=== PATIENT | female | born 1945 | race Caucasian/White ===

== ENCOUNTER 2016-12-31 12:57 | Inpatient (IN) | payer MEDICARE, OTHER ==
[~2016-12-31] VITALS: Ht 165.1 cm; Wt 67.2 kg
[2016-12-31 13:12] VITALS: BP 113/73; PULSE 63; RESP 18; TEMP 98.8; O2SAT 100
[2016-12-31] MEDS ORDERED: DULC10SU3 RECTAL (13:42)
[2016-12-31] MEDS ORDERED: MAPA325T PO (13:42)
[2016-12-31] MEDS ORDERED: ATOR10TA15 PO (13:42)
[2016-12-31] MEDS ORDERED: LORazepam 2 MG/ML VIAL IM ONE (13:45)
[2016-12-31] MEDS ORDERED: DONE10TA7 PO (13:51)
[2016-12-31] MEDS ORDERED: NAME10TA PO (13:51)
[2016-12-31] MEDS ORDERED: QUET50XR PO (13:51)
[2016-12-31] MEDS ORDERED: ENEMENE3 PR (13:51)
[2016-12-31] MEDS ORDERED: MIRTA15 PO (13:51)
[2016-12-31] MEDS ORDERED: THERTAB17 PO (13:51)
[2016-12-31] MEDS ORDERED: TRID0.1C TOPICAL (13:51)
[2016-12-31] MEDS ORDERED: MILKSUS PO (13:51)
[2016-12-31] MEDS ORDERED: LISI-589 PO (13:53)
[2016-12-31 14:19] LABS: AUTOMATED NEUTROPHIL # 8.6 TH/MM3 (1.8-7.7); BASOPHIL % 0.3 % (0.0-2.0); EOSINOPHIL # 0.4 TH/MM3 (0-0.4); EOSINOPHIL % 3.3 % (0.0-4.0); HEMATOCRIT 43.2 % (35.0-46.0); HEMO FLAGS DIFF FINAL; LYMPH % 15.3 % (9.0-44.0); LYMPHOCYTE # 1.8 TH/MM3 (1.0-4.8); MEAN CELL VOLUME 90.6 FL (80.0-100.0); MEAN CORPUSCULAR HEMOGLOBIN 29.4 PG (27.0-34.0); MEAN CORPUSCULAR HGB CONC 32.4 % (32.0-36.0); MONO % 5.8 % (0.0-8.0); NEUT % 75.3 % (16.0-70.0); PLATELET COUNT 249 TH/MM3 (150-450); RED BLOOD COUNT 4.76 MIL/MM3 (4.00-5.30); RED CELL DISTRIBUTION WIDTH 13.4 % (11.6-17.2); WHITE BLOOD COUNT 11.4 TH/MM3 (4.0-11.0)
[2016-12-31 14:41] LABS: ANION GAP 6 MEQ/L (5-15); AST (GOT) 28 U/L (15-37); BICARBONATE 30.7 MEQ/L (21.0-32.0); BLOOD UREA NITROGEN 18 MG/DL (7-18); CHLORIDE 107 MEQ/L (98-107); GLOMERULAR FILTRATION RATE 72 ML/MIN (>89); POTASSIUM 4.3 MEQ/L (3.5-5.1); SODIUM (NA) 144 MEQ/L (136-145)
[2016-12-31 14:45] LABS: ALKALINE PHOSPHATASE 122 U/L (45-117); ALT (GPT) 34 U/L (10-53); TOTAL BILIRUBIN ADULT 0.4 MG/DL (0.2-1.0)
--- NOTE | 2016-12-31 14:56 | RADRPT ---
EXAM DATE/TIME: 12/31/2016 13:56 [facility] COMPARISON: No previous studies available for comparison. INDICATIONS : Trauma; fall. RADIATION DOSE: 31.60 CTDIvol (mGy) ; Patient motion MEDICAL HISTORY : Non-responsive. SURGICAL HISTORY : Non-responsive. ENCOUNTER: Initial ACUITY: 1 day PAIN SCALE: 5/10 LOCATION: cranial TECHNIQUE: Multiple contiguous axial images were obtained of the head. Using automated exposure control and adj ustment of the mA and/or kV according to patient size, radiation dose was kept as low as reasonably a chievable to obtain optimal diagnostic quality images. DICOM format image data is available electro nically for review and comparison. FINDINGS: There is a small approximate 4-5 mm acute subdural hematoma and right frontal. There is preseptal swe lling on the right with fracture of the right maxillary sinus and probably infraorbital rim. Slight d egree of brain atrophy is seen. Slight periventricular white matter changes are seen nonspecific most ly consistent with chronic small vessel ischemic changes. There is slight fluid within the right maxi llary sinus. CONCLUSION: 1. Small right subdural hematoma without mass effect. 2. Fracture of right maxillary sinus and possible infraorbital rim and preseptal swelling on the [facility] t. K. Neno Li MD on December 31, 2016 at 14:52 Board Certified Radiologist. This report was verified electronically.
[2016-12-31] MEDS ORDERED: LIDOCAINE HCL 1% 50 ML VIAL INFIL ONE (15:00)
--- NOTE | 2016-12-31 15:00 | RADRPT ---
EXAM DATE/TIME: 12/31/2016 13:56 [facility] COMPARISON: No previous studies available for comparison. INDICATIONS : Trauma; fall. RADIATION DOSE: 38.23 CTDIvol (mGy) ; Patient motion MEDICAL HISTORY : Non-responsive. SURGICAL HISTORY : Non-responsive. ENCOUNTER: Initial ACUITY: 1 day PAIN SCALE: 5/10 LOCATION: Bilateral neck TECHNIQUE: Volumetric scanning of the cervical spine was performed. Multiplanar reconstructions in the sagittal, coronal and oblique axial planes were performed. Using automated exposure control and adjustment o f the mA and/or kV according to patient size, radiation dose was kept as low as reasonably achievable to obtain optimal diagnostic quality images. DICOM format image data is available electronically f or review and comparison. FINDINGS: No significant subluxation or soft tissue swelling is seen. No definite fracture is seen for techniqu e. Slight degenarative changes are seen within the disc space and facets mainly at C6-7. C2-C3: No appreciable compromised to the thecal sac, exiting nerve roots are seen. The neural edna rush are patent bilaterally. No appreciable thecal sac stenosis is seen. C3-C4: No appreciable compromised to the thecal sac, exiting nerve roots are seen. The neural edna rush are patent bilaterally. No appreciable thecal sac stenosis is seen. C4-C5: No appreciable compromised to the thecal sac, exiting nerve roots are seen. The neural edna rush are patent bilaterally. No appreciable thecal sac stenosis is seen. C5-C6: No appreciable compromised to the thecal sac, exiting nerve roots are seen. The neural edna rush are patent bilaterally. No appreciable thecal sac stenosis is seen. C6-C7: No appreciable compromised to the thecal sac, exiting nerve roots are seen. The neural edna rush are patent bilaterally. No appreciable thecal sac stenosis is seen. C7-T1: No appreciable compromised to the thecal sac, exiting nerve roots are seen. The neural edna rush are patent bilaterally. No appreciable thecal sac stenosis is seen CONCLUSION: Slight degenerative spondylosis without any significant compromise to the thecal sac or the exiting nerve roots. Roman Li MD on December 31, 2016 at 14:54 Board Certified Radiologist. This report was verified electronically.
--- NOTE | 2016-12-31 16:13 | PD ---
HPI Chief Complaint: Fall Time Seen by Provider: 13:19 Travel History International Travel<30 days: No Contact w/Intl Traveler<30days: No Traveled to known affect area: No History of Present Illness HPI Patient is a 71-year-old female brought in from the custodial by EMS after a fall today. She is demented and cannot provide any history. EMS states that staff had just walked out of her room when they heard her fall. PFSH Past Medical History ?: Not Social History Alcohol Use: No (UNABLE TO ASSESS ) Tobacco Use: No (UNABLE TO ASSESS ) Substance Use: No (UNABLE TO ASSESS ) Allergies-Medications (Allergen,Severity, Reaction): Coded Allergies: No Known Allergies (Unverified , 12/31/16) Reported Meds & Prescriptions Reported Meds & Active Scripts Active Reported Zestril (Lisinopril) 5 Mg Tab 5 Mg PO DAILY Triderm Topical (Triamcinolone Topical) 0.1 % Cream 1 Applic TOPICAL BID Thera-M (Multiple Vitamins W/ Minerals) 1 Tab 1 Tab PO DAILY Seroquel XR (Quetiapine Fumarate) 50 Mg Tab 75 Mg PO HS Namenda (Memantine) 10 Mg Tab 10 Mg PO BID Mirtazapine 15 Mg Tab 15 Mg PO HS Milk of Magnesia Liq (Magnesium Hydroxide) 400 Mg/5 Ml Susp 30 Ml PO DAILY PRN Enema 7-19 gm/118Ml (Sodium Phosphates) 1 Mala Mala 118 Ml [place] DAILY PRN Donepezil 10 Mg Tab 10 Mg PO HS Dulcolax Supp (Bisacodyl) 10 Mg Supp 10 Mg RECTAL DAILY PRN Atorvastatin (Atorvastatin Calcium) 10 Mg Tab 10 Mg PO HS Mapap (Acetaminophen) 325 Mg Tab 650 Mg PO Q4HR PRN Review of Systems ROS Limitations: Other: (dementia) Physical Exam Narrative GENERAL: Awake and alert, not oriented to person place or time SKIN: Focused skin assessment warm/dry. Swelling and ecchymosis over the right eye. 2 cm angular laceration to the right side of the chin. HEAD: Normocephalic. EYES: Pupils equal and round and reactive. No scleral icterus. Extraocular movements intact. ENT:Mucous membranes pink and moist. NECK: Trachea midline. No JVD. CARDIOVASCULAR: Regular rate and rhythm. No murmur appreciated. RESPIRATORY: No accessory muscle use. Clear to auscultation. Breath sounds equal bilaterally. GASTROINTESTINAL: Abdomen soft, non-tender, nondistended. Hepatic and splenic margins not palpable. MUSCULOSKELETAL: No obvious deformities. No clubbing. No cyanosis. No edema. NEUROLOGICAL: Awake and alert, not oriented. No obvious cranial nerve deficits. Motor grossly within normal limits. Data Data Last Documented VS Vital Signs Date Time Temp Pulse Resp B/P Pulse Ox O2 Delivery O2 Flow Rate FiO2 12/31/16 13:12 98.8 63 18 113/73 100 Orders Complete Blood Count With Diff (12/31/16 13:39) Comprehensive Metabolic Panel (12/31/16 13:39) Iv Access Insert/Monitor (12/31/16 13:39) Ct Brain W/O Iv Contrast(Rout) (12/31/16 ) Ct Cerv Spine W/O Contrast (12/31/16 ) Lorazepam Inj (Ativan Inj) (12/31/16 13:45) Lidocaine 1% Inj (50 Ml) (Xylocaine 1% I (12/31/16 15:00) Ct Facial Bones W/O Iv Cont (12/31/16 ) Admit Order (Ed Use Only) (12/31/16 ) Consult Cotton Dispatcher (12/31/16 ) Labs Laboratory Tests Test 12/31/16 13:50 White Blood Count 11.4 TH/MM3 Red Blood Count 4.76 MIL/MM3 Hemoglobin 14.0 GM/DL Hematocrit 43.2 % Mean Corpuscular Volume 90.6 FL Mean Corpuscular Hemoglobin 29.4 PG Mean Corpuscular Hemoglobin 32.4 % Concent Red Cell Distribution Width 13.4 % Platelet Count 249 TH/MM3 Mean Platelet Volume 10.1 FL Neutrophils (%) (Auto) 75.3 % Lymphocytes (%) (Auto) 15.3 % Monocytes (%) (Auto) 5.8 % Eosinophils (%) (Auto) 3.3 % Basophils (%) (Auto) 0.3 % Neutrophils # (Auto) 8.6 TH/MM3 Lymphocytes # (Auto) 1.8 TH/MM3 Monocytes # (Auto) 0.7 TH/MM3 Eosinophils # (Auto) 0.4 TH/MM3 Basophils # (Auto) 0.0 TH/MM3 CBC Comment DIFF FINAL Differential Comment Sodium Level 144 MEQ/L Potassium Level 4.3 MEQ/L Chloride Level 107 MEQ/L Carbon Dioxide Level 30.7 MEQ/L Anion Gap 6 MEQ/L Blood Urea Nitrogen 18 MG/DL Creatinine 0.79 MG/DL Estimat Glomerular Filtration 72 ML/MIN Rate Random Glucose 104 MG/DL Calcium Level 9.3 MG/DL Total Bilirubin 0.4 MG/DL Aspartate Amino Transf 28 U/L (AST/SGOT) Alanine Aminotransferase 34 U/L (ALT/SGPT) Alkaline Phosphatase 122 U/L Total Protein 8.1 GM/DL Albumin 3.9 GM/DL [facility] Medical Decision Making Medical Screen Exam Complete: Yes Emergency Medical Condition: Yes Medical Record Reviewed: Yes Differential Diagnosis Orbital fracture versus ICH versus trip and fall Narrative Course Patient is a 71-year-old female comes in after she fell at the custodial today. Exam shows ecchymosis around the right eye as well as a laceration to her chin. CT head and C-spine performed. CT head shows a traumatic subdural hematoma on the right. There are several facial bone fractures. Patient had to be given Ativan to have her scans done as well as have her laceration repaired. I spoke with Dr. Hayes of neurosurgery who will admit the patient for observation. Procedures Procedure Narrative LACERATION LOCATION: Chin LENGTH: 2 cm NUMBER OF STITCHES/VERONICA: 3 REPAIR: The area of the laceration was prepped with Betadine and sterilely draped. The laceration was infiltrated with 1% lidocaine. The wound was copiously irrigated and explored without evidence of foreign body, tendon injury or neurovascular injury. The wound was closed using 5-0 Prolene. This was a single layer repair. Patient tolerated the procedure well. Diagnosis Primary Impression: Subdural hematoma Additional Impressions: Facial bone fracture Qualified Code: S02.81XA - Closed fracture of other bone of right side of face , initial encounter Laceration of face Qualified Code: S01.81XA - Laceration of face, initial encounter Admitting Information Admitting Physician Requests: Admit Shalonda Marrero MD Dec 31, 2016 16:13
[2016-12-31] MEDS ORDERED: POTASSIUM CHLOR 40 MEQ PREMIX 100 ML IV PRN ×2 (16:30)
[2016-12-31] MEDS ORDERED: MAGNESIUM OXIDE 400 MG TAB PO PRN (16:30)
[2016-12-31] MEDS ORDERED: POTASSIUM CHLOR 20 MEQ PREMIX 100 ML IV PRN (16:30)
[2016-12-31] MEDS ORDERED: ACETAMINOPHEN 325 MG TAB PO PRN (16:30)
[2016-12-31] MEDS ORDERED: LACTULOSE SYRUP 20 GM/30 ML CUP PO PRN (16:30)
[2016-12-31] MEDS ORDERED: BISACODYL 10 MG SUPP RECTAL PRN ×2 (16:30→17:15)
[2016-12-31] MEDS ORDERED: POTASSIUM PHOSPHATE MONOBASIC 500 MG TAB PO PRN (16:30)
[2016-12-31] MEDS ORDERED: SODIUM PHOSPHATE INJ 30 MMOL in SODIUM CHLOR 0.9% 250 ML INJ 240 ML IV PRN (16:30)
[2016-12-31] MEDS ORDERED: POTASSIUM CHLORIDE 25 MEQ EFFERVESCENT TAB PO PRN (16:30)
[2016-12-31] MEDS ORDERED: MAGNESIUM SULFATE INJ 4 GM in SODIUM CHLORIDE 0.9% INJ 92 ML IV PRN (16:30)
[2016-12-31] MEDS ORDERED: POTASSIUM PHOSPHATE MONOBASIC 500 MG TAB PO/TUBE PRN (16:30)
[2016-12-31] MEDS ORDERED: SENNOSIDES 8.6 MG TAB PO PRN (16:30)
[2016-12-31] MEDS ORDERED: MAGNESIUM SULFATE INJ 2 GM in SODIUM CHLORIDE 0.9% INJ 96 ML IV PRN (16:30)
[2016-12-31] MEDS ORDERED: MAGNESIUM HYDROXIDE SUSP 30 ML CUP PO PRN ×2 (16:30→17:15)
[2016-12-31] MEDS ORDERED: MISCELLANEOUS NURSING INFORMATION XX SCH (16:30)
[2016-12-31] MEDS ORDERED: CHLORHEXIDINE GLUCONATE 2 % 1 PACK (2 CLOTHS) TOP PRN (16:30)
[2016-12-31] MEDS ORDERED: POTASSIUM PHOSPHATE INJ 30 MMOL in SODIUM CHLOR 0.9% 250 ML INJ 250 ML IV PRN (16:30)
[2016-12-31] MEDS ORDERED: RESP: ALBUTEROL 2.5 MG/IPRATROPIUM 0.5 MG NEB (PRN) INH (16:30)
[2016-12-31] MEDS ORDERED: ONDANSETRON HCL 4 MG/2 ML VIAL IV PRN (16:30)
[2016-12-31] MEDS ORDERED: SODIUM CHLORIDE 0.9% FLUSH 10 ML FLUSH IV FLUSH PRN (16:30)
[2016-12-31] MEDS ORDERED: DEXTROSE 50% IN WATER 50 ML VIAL(D50) IV PRN (16:45)
[2016-12-31] MEDS ORDERED: GLUCAGON 1 MG/ML VIAL OTHER PRN (16:45)
--- NOTE | 2016-12-31 16:58 | PD.CONS ---
HPI Service Critical Care Medicine Consult Requested By Dr. Hayes Reason for Consult [facility] Primary Care Physician Bandar Andrews M.D. History of Present Illness International Travel<30 days: No Contact w/Intl Traveler<30days: No Traveled to known affect area: No History obtained by report from ED physician. This is a 71-year-old patient from a half-way facility, that fell with resultant small right subdural hematoma. The patient's medical history significant for schizophrenia and dementia. Patient is noncommunicative. Laboratory and imaging studies were performed in the ED which revealed a small right subdural hematoma, and fracture of the intraorbital rim. CT max face is pending. A consult for maxillofacial surgery has been initiated. Critical care medicine was consulted. History PFSH Past Medical History ?: Not Social History Alcohol Use: No (UNABLE TO ASSESS ) Tobacco Use: No (UNABLE TO ASSESS ) Substance Use: No (UNABLE TO ASSESS ) Allergies-Medications Allergies-Medications (Allergen,Severity, Reaction): Coded Allergies: No Known Allergies (Unverified , 12/31/16) Reported Meds & Prescriptions Reported Meds & Active Scripts Active Reported Zestril (Lisinopril) 5 Mg Tab 5 Mg PO DAILY Triderm Topical (Triamcinolone Topical) 0.1 % Cream 1 Applic TOPICAL BID Thera-M (Multiple Vitamins W/ Minerals) 1 Tab 1 Tab PO DAILY Seroquel XR (Quetiapine Fumarate) 50 Mg Tab 75 Mg PO HS Namenda (Memantine) 10 Mg Tab 10 Mg PO BID Mirtazapine 15 Mg Tab 15 Mg PO HS Milk of Magnesia Liq (Magnesium Hydroxide) 400 Mg/5 Ml Susp 30 Ml PO DAILY PRN Enema 7-19 gm/118Ml (Sodium Phosphates) 1 Mala Mala 118 Ml [place] DAILY PRN Donepezil 10 Mg Tab 10 Mg PO HS Dulcolax Supp (Bisacodyl) 10 Mg Supp 10 Mg RECTAL DAILY PRN Atorvastatin (Atorvastatin Calcium) 10 Mg Tab 10 Mg PO HS Mapap (Acetaminophen) 325 Mg Tab 650 Mg PO Q4HR PRN Review of Systems ROS Limitations: Clinical Condition Past Family Social History Allergies: Coded Allergies: No Known Allergies (Unverified , 12/31/16) Past Surgical History Unable to obtain Reported Medications see MAR Active Ordered Medications see MAR Family History Unable to obtain Social History Unable to obtain Physical Exam Vital Signs Vital Signs Date Time Temp Pulse Resp B/P Pulse Ox O2 Delivery O2 Flow Rate FiO2 12/31/16 13:12 98.8 63 18 113/73 100 Physical Exam GENERAL: Well-nourished well-developed patient, opens eyes moves extremities spontaneously, completely noncommunicative SKIN: Warm and dry. Noted chin laceration, well approximated and sutured HEAD: Atraumatic. Normocephalic. EYES: Pupils equal and round. Large ecchymotic bruise with edema right eye, minimal ecchymosis noted left. No scleral icterus. No injection or drainage. Unable to assess EOM of right eye ENT: No nasal bleeding or discharge. Mucous membranes pink and moist. NECK: Trachea midline. No JVD. CARDIOVASCULAR: Normal rate, regular rhythm. RESPIRATORY: No accessory muscle use. Clear to auscultation. Breath sounds equal bilaterally. GASTROINTESTINAL: Abdomen soft, non-tender, nondistended. No guarding. MUSCULOSKELETAL: Extremities without clubbing, cyanosis, or edema. No obvious deformities. NEUROLOGICAL: Awake and alert. RASS 0. No gross focal/sensory deficits. Spontaneously moves all 4 extremities. Laboratory Laboratory Tests Test 12/31/16 13:50 White Blood Count 11.4 Red Blood Count 4.76 Hemoglobin 14.0 Hematocrit 43.2 Mean Corpuscular Volume 90.6 Mean Corpuscular Hemoglobin 29.4 Mean Corpuscular Hemoglobin 32.4 Concent Red Cell Distribution Width 13.4 Platelet Count 249 Mean Platelet Volume 10.1 Neutrophils (%) (Auto) 75.3 Lymphocytes (%) (Auto) 15.3 Monocytes (%) (Auto) 5.8 Eosinophils (%) (Auto) 3.3 Basophils (%) (Auto) 0.3 Neutrophils # (Auto) 8.6 Lymphocytes # (Auto) 1.8 Monocytes # (Auto) 0.7 Eosinophils # (Auto) 0.4 Basophils # (Auto) 0.0 CBC Comment DIFF FINAL Differential Comment Sodium Level 144 Potassium Level 4.3 Chloride Level 107 Carbon Dioxide Level 30.7 Anion Gap 6 Blood Urea Nitrogen 18 Creatinine 0.79 Estimat Glomerular Filtration 72 Rate Random Glucose 104 Calcium Level 9.3 Total Bilirubin 0.4 Aspartate Amino Transf 28 (AST/SGOT) Alanine Aminotransferase 34 (ALT/SGPT) Alkaline Phosphatase 122 Total Protein 8.1 Albumin 3.9 Result Diagram: 12/31/16 1350 12/31/16 1350 Septic Shock Reassessment Heart: Regular rate and rhythm Lungs: Clear Skin: Warm, Moist, [place] Peripheral Pulses: Bounding Right Radial Bounding Left Radial Bounding Right Dorsalis Pedis Bounding Left Dorsalis Pedis Assessment and Plan Assessment and Plan Assessment This is an unfortunate 71-year-old patient that sustained a fall in her half-way resident with resultant right small subdural hematoma. The patient has a significant medical history for schizophrenia and dementia and is noncommunicative. Postoperative observation is needed to assess any neurological status changes. The patient also sustained multiple facial fractures and need to be evaluated for possible operative interventions. 1. Small right subdural hematoma S/P fall 2. Multiple facial fractures 3. Schizophrenia 4. Dementia 5. Facial laceration 6. Hypertension Plan Neurologic: -Neurosurgery Dr. Hayes following -Observation for neurological changes per ICU protocol -Tylenol 650 mg every 6 hours for pain -Hold donepezil, Seroquel XL amantadine and mirtazapine ( half-way medications) at this time -Obtain formal swallow from speech therapy -Repeat CT in a.m. -Consult maxillofacial surgery -Follow-up CT max face Respiratory: -Maintain O2 sat greater than 92% -O2 via nasal cannula 14 liters if needed -Maintain head of bed 30 Cardiovascular: -Continue lisinopril 5 mg/day -Maintain systolic blood pressure less than 140mmHg -Metoprolol 2.5 mg every 6 hours when necessary systolic blood pressure greater than 160mmHg -Hydralazine 10 mg every 6 hours when necessary for systolic brought pressure greater than 160mmHg Renal: -Insert Masterson -- Strict I/Os FEN/GI: -Normal saline at 42 cc/hour -Maintain NPO status for now -Bowel regimen Heme/ID: -Monitor CBC -Obtain cultures if indicated Endocrine: Glucose monitoring per ICU protocol. Low dose regimen -- SSI Prophylaxis: GI Prophylaxis Protonix DVT Prophylaxis -- SCDs No pharmacological DVT prophylaxis in the setting of SDH Lines: Peripheral IVs 2. Central line if indicated Dispo: Level 3 Code Status Full Discussed Condition With ED, [facility] at bedside Anjana Barrios MD Dec 31, 2016 16:58
[2016-12-31] MEDS: SODIUM CHLOR 0.9% 1000 ML INJ 1,000 ML IV SCH (17:00)
--- NOTE | 2016-12-31 17:05 | RADRPT ---
EXAM DATE/TIME: 12/31/2016 16:31 [facility] COMPARISON: CT BRAIN W/O CONTRAST, December 31, 2016, 13:56. INDICATIONS : Trauma; fall. RADIATION DOSE: 23.08 CTDIvol (mGy) MEDICAL HISTORY : None SURGICAL HISTORY : None. ENCOUNTER: Initial ACUITY: 1 day PAIN SCORE: Non-responsive LOCATION: Bilateral facial TECHNIQUE: Volumetric scanning of the facial bones was performed. Using automated exposure control and adjustme nt of the mA and/or kV according to patient size, radiation dose was kept as low as reasonably achiev able to obtain optimal diagnostic quality images. DICOM format image data is available electronicall y for review and comparison. FINDINGS: There is a fracture of the right nasal bone. There is infraorbital fracture with slight herniation of fat and no evidence for herniation of inferior rectus muscle. Extensive pre-septal swelling is seen on the right with gas bubbles partially extending to the infraorbital region. There may be a hairline fracture of the lateral wall of the maxillary sinus as well on the right side. CONCLUSION: Infraorbital rim fracture and right nasal bone fracture. Roman Li MD on December 31, 2016 at 17:01 Board Certified Radiologist. This report was verified electronically.
[2016-12-31] MEDS ORDERED: METOPROLOL TARTRATE 5 MG/5 ML VIAL IV PUSH PRN (17:15)
[2016-12-31] MEDS ORDERED: SOD PHOSPHATE/SOD BIPHOSPHATE (ADULT) ENEMA 133ML RECTAL PRN (17:15)
[2016-12-31] MEDS ORDERED: hydrALAZINE HCL 20 MG/ML VIAL IV PUSH PRN (17:15)
[2016-12-31 20:00] VITALS: BP 136/81; PULSE 86; PULSE 88; RESP 22; TEMP 98.4; O2SAT 100; O2SAT 95
[2016-12-31] MEDS: MEMANTINE HCL 10 MG TAB PO SCH (20:32)
[2016-12-31] MEDS: MIRTAZAPINE 15 MG TAB PO SCH (20:32)
[2016-12-31] MEDS: DOCUSATE SODIUM 50 MG/SENNA 8.6 MG TAB PO SCH (20:33)
[2016-12-31] MEDS: QUEtiapine FUMARATE 25 MG TAB PO SCH (20:33)
[2016-12-31] MEDS: DONEPEZIL HCL 5 MG TAB PO SCH (20:33)
[2016-12-31] MEDS: ATORVASTATIN 10 MG TAB PO SCH (20:33)
[2016-12-31] MEDS: TRIAMCINOLONE ACETONIDE 0.1% CREAM 15 GM TOPICAL SCH (20:33)
[2016-12-31] MEDS: SODIUM CHLORIDE 0.9% FLUSH 10 ML FLUSH IV FLUSH SCH (20:33)
[2016-12-31] MEDS: INSULIN ASPART SUPPLEMENTAL SCALE SQ SCH (21:00)
[2016-12-31 22:00] VITALS: PULSE 74
[2017-01-01] VITALS (12 sets, daily range): BP systolic 95–132; BP diastolic 50–88; PULSE 57–95; RESP 11–21; TEMP 98.2–98.9; O2SAT 95–100
[2017-01-01] MEDS: CHLORHEXIDINE GLUCONATE 2 % 1 PACK (2 CLOTHS) TOP SCH (02:42)
[2017-01-01 05:04] LABS: HEMATOCRIT 40.3 % (35.0-46.0); MEAN CORPUSCULAR HGB CONC 34.1 % (32.0-36.0); PLATELET COUNT 197 TH/MM3 (150-450); RED BLOOD COUNT 4.43 MIL/MM3 (4.00-5.30); RED CELL DISTRIBUTION WIDTH 13.6 % (11.6-17.2); WHITE BLOOD COUNT 7.7 TH/MM3 (4.0-11.0)
[2017-01-01 05:08] LABS: REVIEW FLAG FINAL
--- NOTE | 2017-01-01 05:13 | RADRPT ---
EXAM DATE/TIME: 01/01/2017 04:14 [facility] COMPARISON: CT BRAIN W/O CONTRAST, December 31, 2016, 13:56. INDICATIONS : Follow up bleed. RADIATION DOSE: 30.78 CTDIvol (mGy) MEDICAL HISTORY : Non-responsive. SURGICAL HISTORY : Non-responsive. ENCOUNTER: Subsequent ACUITY: 1 day PAIN SCALE: Non-responsive LOCATION: cranial TECHNIQUE: Multiple contiguous axial images were obtained of the head. Using automated exposure control and adj ustment of the mA and/or kV according to patient size, radiation dose was kept as low as reasonably a chievable to obtain optimal diagnostic quality images. DICOM format image data is available electro nically for review and comparison. FINDINGS: Today's exam is compared to the prior study of 12/31/2016. There is a stable small right-sided subdura l hematoma measuring approximately 4 mm overlying the right upper lobe. This is unchanged compared to the prior exam. There continues to be bilateral cortical atrophy. The ventricles are stable. No mass effect or midline shift. No new areas of hemorrhage. The posterior fossa is stable and unremarkable. There continues to be soft tissue swelling over the right orbit. CONCLUSION: 1. Stable small right-sided subdural hematoma without change compared to the prior exam. 2. Diffuse bilateral cortical atrophy. Pb Callaway MD on January 01, 2017 at 5:10 Board Certified Radiologist. This report was verified electronically.
[2017-01-01 05:21] LABS: BICARBONATE 27.2 MEQ/L (21.0-32.0); MAGNESIUM 2.1 MG/DL (1.5-2.5); POTASSIUM 3.4 MEQ/L (3.5-5.1)
[2017-01-01] MEDS: INSULIN ASPART SUPPLEMENTAL SCALE SQ SCH ×4 (06:27→21:00)
[2017-01-01] MEDS: POTASSIUM CHLOR 20 MEQ PREMIX 100 ML IV PRN (08:24)
[2017-01-01] MEDS: QUEtiapine FUMARATE 25 MG TAB PO SCH ×2 (08:25→19:54)
[2017-01-01] MEDS: MEMANTINE HCL 10 MG TAB PO SCH ×2 (08:25→19:54)
[2017-01-01] MEDS: LISINOPRIL 5 MG TAB PO SCH (08:25)
[2017-01-01] MEDS: PANTOPRAZOLE SODIUM 40 MG VIAL IV SCH (08:25)
[2017-01-01] MEDS: DOCUSATE SODIUM 50 MG/SENNA 8.6 MG TAB PO SCH ×2 (08:25→19:53)
[2017-01-01] MEDS: TRIAMCINOLONE ACETONIDE 0.1% CREAM 15 GM TOPICAL SCH ×2 (08:26→19:53)
[2017-01-01] MEDS: SODIUM CHLORIDE 0.9% FLUSH 10 ML FLUSH IV FLUSH SCH ×2 (08:26→19:53)
[2017-01-01] MEDS ORDERED: LISINOPRIL 5 MG TAB PO SCH (09:00)
--- NOTE | 2017-01-01 11:37 | MH ---
cc: SCHUYLER MEJIA M.D., ROHIT K. M.D. DATE OF ADMISSION: 12/31/2016 ADMISSION DIAGNOSIS Traumatic brain injury. HISTORY OF PRESENT ILLNESS A 71-year-old female who resides in a penitentiary and has a history of advanced dementia along with schizophrenia and is not very communicative at baseline. She fell at the penitentiary facility and was brought to [facility] and a CT scan of the head obtained which reveals a small right frontal, about 5-mm thick subdural hemorrhage without any midline shift and generalized atrophy. There is also a fracture of the right maxillary sinus and infraorbital rim noted. CT of the cervical spine does not reveal any fractures. The patient is not very communicative and will mumble a few words but cannot relate a history or give any reliable information. PAST MEDICAL HISTORY 1. Hypertension. 2. Hyperlipidemia. 3. Dementia. 4. Schizophrenia. 5. Chronic constipation. MEDICATIONS 1. Atorvastatin 10 mg q.h.s. 1. Dulcolax suppository p.r.n. 2. Donepezil 10 mg q.h.s. 3. Lisinopril 5 mg daily. 4. Milk of magnesia p.r.n. 5. Namenda 10 mg b.i.d. 6. Mirtazapine 50 mg q.h.s. 7. Multivitamin one daily. 8. Seroquel 75 mg q.h.s. 9. Enemas p.r.n. 10. Triamcinolone topical b.i.d. ALLERGIES No known drug allergies. SOCIAL HISTORY She is reportedly and resides in a penitentiary. No alcohol or tobacco use history. REVIEW OF SYSTEMS Unobtainable. She does not communicate and on review of the penitentiary records she is a DNR. LABORATORY FINDINGS White blood cell count 11.4, hemoglobin 14, platelet count 249, sodium 144, potassium 4.3, BUN 18, creatinine 0.79, glucose 104. PHYSICAL EXAMINATION VITALS: Temperature 98.4, pulse is 86, respiratory rate 22, blood pressure 136/81, oxygen saturation 95% on room air. HEAD: She has extensive right periorbital ecchymosis and swelling. NECK: Supple. CHEST: Clear bilaterally. HEART: Regular rate and rhythm. Normal S1 and S2. ABDOMEN: Soft, nontender. EXTREMITIES: She is in a position and contracted posture. NEUROLOGIC: She will open her eyes to stimulation, although right eye cannot be open because of extensive soft tissue swelling and periorbital edema. She will mumble a few incomprehensible words. She will move upper and lower extremities although she is rigid and will follow simple commands although inconsistent. Equivocal Babinski. IMPRESSION 1. Mild traumatic brain injury with a small right frontal subdural hemorrhage with generalized atrophy. 2. Right infraorbital fracture, maxillary sinus right lateral wall fracture and fracture of the nasal bone. 3. Severe dementia with very poor baseline neurologic condition reportedly. 4. History of schizophrenia. PLAN 1. The patient will be admitted to the Intensive Care Unit for close observation and monitoring. 2. Followup CT scan of head will be obtained tomorrow morning to rule out any progression of this small subdural hemorrhage. If stable, then I do not anticipate any need for surgical intervention. 3. Her home medications will be resumed. 4. Oral maxillofacial surgery will also be consulted for the orbital and nasal/right maxillary sinus fractures. 5. We will consult the medical team for assistance in medical management. 6. Speech Therapy consult for swallowing evaluation as well as a physical therapy to prevent further deconditioning and increase activity as tolerated. 7. Mechanical DVT prophylaxis as chemical prophylaxis is contraindicated given the intracranial hemorrhage. MD DARELL Haney/ELVIS /11:07 AM /11:24 AM
--- NOTE | 2017-01-01 11:48 | HHI.CCPN ---
Subjective Remarks/Hospital Course History obtained by report from ED physician. This is a 71-year-old patient from a [facility] facility, that fell with resultant small right subdural hematoma. The patient's medical history significant for schizophrenia and dementia. Patient is noncommunicative. Laboratory and imaging studies were performed in the ED which revealed a small right subdural hematoma, and fracture of the intraorbital rim. CT max face is pending. A consult for maxillofacial surgery has been initiated. Critical care medicine was consulted. 01/01: Protects airway and breathing comfortably. Small right SDH unchanged, no mass effect. Objective Vital Signs Date Time Temp Pulse Resp B/P Pulse Ox O2 Delivery O2 Flow Rate FiO2 01/01/17 10:00 67 01/01/17 08:00 98.5 11 95/51 95 01/01/17 07:00 Room Air Intake and Output 12/31/16 12/31/16 01/01/17 08:00 16:00 00:00 Output Total 250 ml Balance -250 ml Result Diagram: 01/01/17 0320 01/01/17 0320 Objective Remarks GENERAL: patient, opens eyes moves extremities spontaneously, completely noncommunicative SKIN: Warm and dry. Noted chin laceration, well approximated and sutured HEAD: Atraumatic. Normocephalic. EYES: Pupils equal and round. Large ecchymotic bruise with edema right eye, minimal ecchymosis noted left. Unable to assess EOM of right eye ENT: No nasal bleeding or discharge. Mucous membranes pink and moist. NECK: Trachea midline. Airway widely patent. CARDIOVASCULAR: Normal rate, regular rhythm. No JVD. RESPIRATORY: Clear to auscultation. Breath sounds equal bilaterally. GASTROINTESTINAL: Abdomen soft, non-tender, nondistended. No guarding. BS active. MUSCULOSKELETAL: Extremities without clubbing, cyanosis, or edema. No obvious deformities. NEUROLOGICAL: Awake and alert. RASS 0. No gross focal/sensory deficits. Spontaneously moves all 4 extremities. A/P Assessment and Plan Assessment This is an unfortunate 71-year-old patient that sustained a fall in her [facility] resident with resultant right small subdural hematoma. The patient has a significant medical history for schizophrenia and dementia and is noncommunicative. Postoperative observation is needed to assess any neurological status changes. The patient also sustained multiple facial fractures and need to be evaluated for possible operative interventions. 1. Small right subdural hematoma S/P fall 2. Multiple facial fractures 3. Schizophrenia 4. Dementia 5. Facial laceration 6. Hypertension Plan Neurologic: -Neurosurgery Dr. Hayes following -Observation for neurological changes per ICU protocol -Tylenol 650 mg every 6 hours for pain -Hold donepezil, Seroquel XL amantadine and mirtazapine ([facility] medications) at this time -Obtain formal swallow from speech therapy -Repeat CT in a.m. -> done, no change. -Consult maxillofacial surgery -Follow-up CT max face Respiratory: -Maintain O2 sat greater than 92% -O2 via nasal cannula 14 liters if needed -Maintain head of bed 30 Cardiovascular: -Continue lisinopril 5 mg/day -Maintain systolic blood pressure less than 140mmHg -Metoprolol 2.5 mg every 6 hours when necessary systolic blood pressure greater than 160mmHg -Hydralazine 10 mg every 6 hours when necessary for systolic brought pressure greater than 160mmHg Renal: -Insert Masterson -- Strict I/Os FEN/GI: -Normal saline at 42 cc/hour -Maintain NPO status for now -> swallow evaluation. -Bowel regimen Heme/ID: -Monitor CBC -Obtain cultures if indicated Endocrine: Glucose monitoring per ICU protocol. Low dose regimen -- SSI Prophylaxis: GI Prophylaxis Protonix DVT Prophylaxis -- SCDs No pharmacological DVT prophylaxis in the setting of SDH Lines: Peripheral IVs 2. Central line if indicated Overall impression: Stable neuro exam after closed head injury with small right frontal SDH, unchanged today. Vitaly Mccarty MD Jan 01, 2017 11:48
--- NOTE | 2017-01-01 12:09 | HHI.NSPN ---
Subjective History 71-year-old female who resides in a snf and has a history of advanced dementia along with schizophrenia and is not very communicative at baseline. She fell at the snf facility and was brought to [facility] and a CT scan of the head obtained which reveals a small right frontal, about 5-mm thick subdural hemorrhage without any midline shift and generalized atrophy. There is also a fracture of the right maxillary sinus and infraorbital rim noted. CT of the cervical spine does not reveal any fractures. The patient is not very communicative and will mumble a few words but cannot relate a history or give any reliable information. 01/01/17: No change in examination with a follow-up CT scan of the head this morning is stable. Vitals . Vital Signs Date Time Temp Pulse Resp B/P Pulse Ox O2 Delivery O2 Flow Rate FiO2 01/01/17 10:00 67 01/01/17 08:00 98.5 64 11 95/51 95 01/01/17 08:00 74 01/01/17 07:00 95 Room Air 01/01/17 06:00 57 01/01/17 04:00 68 01/01/17 04:00 98.9 62 21 123/88 100 01/01/17 02:00 77 01/01/17 00:00 98.2 79 18 130/76 95 01/01/17 00:00 68 12/31/16 22:00 74 12/31/16 20:00 86 12/31/16 20:00 95 12/31/16 20:00 98.4 88 22 136/81 100 12/31/16 19:00 100 Room Air 12/31/16 13:12 98.8 63 18 113/73 100 12/31/16 12/31/16 01/01/17 15:00 23:00 07:00 Intake Total 369 ml Output Total 250 ml 350 ml Balance -250 ml 19 ml Physical Exam Head Head: Abrasions Eyes Eyes: Pupils Equal Eyes Remarks Severe right periorbital swelling Neuro Mental Status: Confused, Agitated Pupils: Reactive Bilaterally Speech: Not Appropriate [place] Coma Scale Best Eye Openin - Spontaneous Best Verbal: 3 - Inappropriate Best Motor: 6 - Obeys Sensation: Intact Cardiac Cardiac: Regular Rate & Rhythm Respiratory Respiratory: CTA Gastrointestinal Gastrointestinal: Soft, Nontender Bowel Sounds: Present Genitourinary Genitourinary: Masterson Catheter In Place Musculoskeletal Extremities Upper Extremities Deltoid Bicep Tricep HI W. Ext Right Left Lower Extremeties Ilio Quad Plantar Dorsi EHL Right Left Musculoskeletal Remarks Moves all 4 extremities with increased rigidity and contraction of the upper and lower extremities Dermatologic Dermatologic: Skin Intact Extremities Edema: No Edema, SCDs Objective Labs Laboratory Tests 12/31/16 13:50 01/01/17 03:20 Laboratory Tests Test 12/31/16 01/01/17 13:50 03:20 Sodium Level 144 MEQ/L 145 MEQ/L Potassium Level 4.3 MEQ/L 3.4 MEQ/L Chloride Level 107 MEQ/L 110 MEQ/L Carbon Dioxide Level 30.7 MEQ/L 27.2 MEQ/L Anion Gap 6 MEQ/L 8 MEQ/L Blood Urea Nitrogen 18 MG/DL 9 MG/DL Creatinine 0.79 MG/DL 0.60 MG/DL Estimat Glomerular Filtration 72 ML/MIN 99 ML/MIN Rate Random Glucose 104 MG/DL 79 MG/DL Calcium Level 9.3 MG/DL 8.6 MG/DL Phosphorus Level 2.8 MG/DL 3.1 MG/DL Total Bilirubin 0.4 MG/DL Aspartate Amino Transf 28 U/L (AST/SGOT) Alanine Aminotransferase 34 U/L (ALT/SGPT) Alkaline Phosphatase 122 U/L Total Protein 8.1 GM/DL Albumin 3.9 GM/DL Magnesium Level 2.1 MG/DL Imaging Remarks Last Impressions Head CT 01/01/17 0600 Signed Impressions: Service Date/Time: Sunday, January 01, 2017 04:14 - CONCLUSION: 1. Stable small right-sided subdural hematoma without change compared to the prior exam. 2. Diffuse bilateral cortical atrophy. Pb Callaway MD Maxillofacial CT 12/31/16 0000 Signed Impressions: Service Date/Time: Saturday, December 31, 2016 16:31 - CONCLUSION: Infraorbital rim fracture and right nasal bone fracture. Roman Li MD Cervical Spine CT 12/31/16 0000 Signed Impressions: Service Date/Time: Saturday, December 31, 2016 13:56 - CONCLUSION: Slight degenerative spondylosis without any significant compromise to the thecal sac or the exiting nerve roots. Roman Li MD Assessment & Plan Assessment 1. Mild traumatic brain injury with a small right frontal subdural hemorrhage with generalized atrophy. Stable follow-up CT scan of the head this morning. 2. Right infraorbital fracture, maxillary sinus right lateral wall fracture and fracture of the nasal bone. 3. Severe dementia with very poor baseline neurologic condition reportedly. 4. History of schizophrenia. Plan Increase activity status as tolerated with physical therapy. Speech therapy evaluation for a swallowing evaluation and diet as per their recommendation. Transfer to regular floor. Dharmesh Hayes MD Jan 01, 2017 12:09
--- NOTE | 2017-01-01 14:19 | PD.CONS ---
HPI Service [facility] Consult Requested By Dr. Barrios Reason for Consult medical management Primary Care Physician Bandar Andrews M.D. Diagnoses: History of Present Illness This is a 71-year-old elderly white female from a local snf with history of advanced dementia along with schizophrenia, hypertension, hyperlipidemia. Patient was brought in from snf after she had a fall. A CT of the head was done that showed a small right frontal, 5 mm thick subdural hemorrhage without any midline shift and generalized atrophy. There was also an acute fracture of the right maxillary sinus in the infraorbital rim. CT of the cervical spine did not reveal any acute findings. Patient is unable to provide any information, she is only able to mumble a few words. Information is obtained from the medical record. Patient was evaluated in the emergency room, she had sutures placed with laceration to the chin. She was admitted to the intensive care unit with b2b managed service sales exec consultation for closer monitoring. Dr. Diego Spaulding was consulted and has evaluated patient and recommended observation and monitoring with follow-up CT of the head. He does not anticipate any surgical interventions. Oral maxillofacial surgery has been consulted for the orbital and nasal right maxillary sinus fractures. Patient remains in the ICU, blood pressure is stable. She is not able to provide any details. Patient is a DNR. Hospitalist services are now requested to assume medical management. ([place]) Review of Systems ROS Limitations: Poor Historian ([place]) Past Family Social History Past Medical History Dementia Schizophrenia Hypertension Hyperlipidemia Chronic constipation Past Surgical History Unable to obtain Reported Medications Reported Meds & Active Scripts Active Reported Zestril (Lisinopril) 5 Mg Tab 5 Mg PO DAILY Triderm Topical (Triamcinolone Topical) 0.1 % Cream 1 Applic TOPICAL BID Thera-M (Multiple Vitamins W/ Minerals) 1 Tab 1 Tab PO DAILY Seroquel XR (Quetiapine Fumarate) 50 Mg Tab 75 Mg PO HS Namenda (Memantine) 10 Mg Tab 10 Mg PO BID Mirtazapine 15 Mg Tab 15 Mg PO HS Milk of Magnesia Liq (Magnesium Hydroxide) 400 Mg/5 Ml Susp 30 Ml PO DAILY PRN Enema 7-19 gm/118Ml (Sodium Phosphates) 1 Mala Mala 118 Ml [place] DAILY PRN Donepezil 10 Mg Tab 10 Mg PO HS Dulcolax Supp (Bisacodyl) 10 Mg Supp 10 Mg RECTAL DAILY PRN Atorvastatin (Atorvastatin Calcium) 10 Mg Tab 10 Mg PO HS Mapap (Acetaminophen) 325 Mg Tab 650 Mg PO Q4HR PRN ([place]) Allergies: Coded Allergies: No Known Allergies (Unverified , 12/31/16) Active Ordered Medications Inpatient Medications Acetaminophen (Tylenol) 650 mg Q6H PRN PO PAIN 1-10 AND/OR FEVER >101F; Start 12/31/16 at 16:30 Albuterol/ Ipratropium (Duoneb Neb) 1 ampule Q4HR NEB PRN INH WHEEZING; Start 12/31/16 at 16:30 Atorvastatin Calcium (Lipitor) 10 mg HS PO Last administered on 12/31/16 20:33 ; Start 12/31/16 at 21:00 Bisacodyl (Dulcolax Supp) 10 mg DAILY PRN RECTAL IF NO BM FROM MOM; Start 12/31 at 17:15 Chlorhexidine Gluconate (Chlorhexidine 2% Cloth) 3 pack UNSCH PRN TOP HYGIENIC CARE; Start 12/31/16 at 16:30 Dextrose (D50w (Vial) Inj) 50 ml UNSCH PRN IV HYPOGLYCEMIA-SEE COMMENTS; Start 12/31/16 at 16:45 Donepezil HCl (Aricept) 10 mg HS PO Last administered on 12/31/16 20:33; Start 12/31/16 at 21:00 Glucagon (Glucagon Inj) 1 mg UNSCH PRN OTHER HYPOGLYCEMIA-SEE COMMENTS; Start 12/31/16 at 16:45 Hydralazine HCl (Apresoline Inj) 20 mg Q6H PRN IV PUSH SYS BP GREATER THAN 160 MMHG; Start 12/31/16 at 17:15 Insulin Aspart (NovoLOG SUPPLEMENTAL SCALE) 1 ACHS SLIDING SCALE SQ ; Start at 21:00 Lactulose 30 ml 30 ml DAILY PRN PO SEVERE CONSITIPATION; Start 12/31/16 at 16: 30 Lidocaine HCl 10 ml 10 ml ONCE ONCE INFIL Last administered on 12/31/16 14:59 ; Start 12/31/16 at 15:00; Stop 12/31/16 at 15:01; Status DC Lisinopril (Prinivil) 5 mg DAILY PO ; Start 01/01/17 at 09:00 Lorazepam (Ativan Inj) 1 mg ONCE ONCE IM Last administered on 12/31/16 14:22 ; Start 12/31/16 at 13:45; Stop 12/31/16 at 13:46; Status DC Magnesium Hydroxide (Milk Of Magnesia Liq) 30 ml DAILY PRN PO IF NO BM WITHIN 3 DAYS; Start 12/31/16 at 17:15 Magnesium Oxide 800 mg 800 mg UNSCH PRN PO For Magnesium 1.2 - 1.6 mg/dL; Start 12/31/16 at 16:30 Magnesium Sulfate 2 gm/Sodium Chloride 100 ml @ 50 mls/hr UNSCH PRN IV For Magnesium 1.2 - 1.6 mg/dL; Start 12/31/16 at 16:30 Magnesium Sulfate/ Sodium Chloride (Magnesium Sulfate Inj/NS Inj) 100 ml @ 50 mls/hr UNSCH PRN IV For Magnesium 0.9 - 1.1 mg/dL; Start 12/31/16 at 16:30 Memantine (Namenda) 10 mg BID PO Last administered on 01/01/17 08:25; Start at 21:00 Metoprolol Tartrate (Lopressor Inj) 2.5 mg Q6H PRN IV PUSH SYS BP GREATER THAN 160 MMHG; Start 12/31/16 at 17:15 Mirtazapine (Remeron) 15 mg HS PO Last administered on 12/31/16 20:32; Start 12/31/16 at 21:00 Miscellaneous Information 1 Q361D XX ; Start 12/31/16 at 16:30 Ondansetron HCl (Zofran Inj) 4 mg Q6H PRN IV NAUSEA OR VOMITING; Start at 16:30 Pantoprazole Sodium (Protonix Inj) 40 mg DAILY IV Last administered on 08:25; Start 01/01/17 at 09:00 Potassium Phosphate 2000 mg 2,000 mg UNSCH PRN PO/TUBE SEE LABEL COMMENTS; Start 12/31/16 at 16:30 Potassium Phosphate/Sodium Chloride (Potassium Phosphate Inj/NS 250 ml Inj) 260 ml @ 42 mls/hr UNSCH PRN IV SEE LABEL COMMENTS; Start 12/31/16 at 16:30 Potassium Bicarb/ Potassium Chloride 50 meq 50 meq UNSCH PRN PO For Potassium 3.3 - 3.5 mEq/L; Start 12/31/16 at 16:30 Potassium Chloride 100 ml @ 50 mls/hr Q2H PRN IV For Potassium 3.3 - 3.5 mEq/ L Last administered on 01/01/17 08:24; Start 12/31/16 at 16:30 Potassium Chloride (KCl 20 Meq Premix Inj) 100 ml @ 50 mls/hr Q2H PRN IV For Potassium 2.8 - 3.2 mEq/L; Start 12/31/16 at 16:30 Quetiapine Fumarate (SEROquel) 37.5 mg BID PO Last administered on 01/01/17 08 :25; Start 12/31/16 at 21:00 Senna/Docusate Sodium (Alivia-Colace) 1 tab BID PO Last administered on 08:25; Start 12/31/16 at 21:00 Sennosides (Senokot) 17.2 mg Q12H PRN PO MODERATE - SEVERE CONSTIPATION; Start 12/31/16 at 16:30 Sodium Biphosphate/ Sodium Phosphate (Fleets Enema (Adult)) 118 ml DAILY PRN RECTAL IF NO BM FROM SUPP; Start 12/31/16 at 17:15 Sodium Chloride (NS 1000 ml Inj) 1,000 ml @ 42 mls/hr [id number] IV Last administered on 12/31/16 17:00; Start 12/31/16 at 17:00 Sodium Chloride (NS Flush) 2 ml BID IV FLUSH Last administered on 01/01/17 08: 26; Start 12/31/16 at 21:00 Sodium Phosphate/ Sodium Chloride (Sodium Phosphate Inj/NS 250 ml Inj) 250 ml @ 42 mls/hr UNSCH PRN IV For Phosphorus < 2.5 mg/dL; Start 12/31/16 at 16:30 Triamcinolone Acetonide (Aristocort 0.1% Cream) 1 applic BID TOPICAL Last administered on 01/01/17 08:26; Start 12/31/16 at 21:00 Family History Unable to obtain Social History Patient is a resident of a snf, no documented history of alcohol, no substance abuse, no tobacco abuse. ([place]) Physical Exam Vital Signs Vital Signs Date Time Temp Pulse Resp B/P Pulse Ox O2 Delivery O2 Flow Rate FiO2 01/01/17 12:00 98.5 68 13 103/50 95 01/01/17 12:00 70 01/01/17 10:00 67 01/01/17 08:00 98.5 64 11 95/51 95 01/01/17 08:00 74 01/01/17 07:00 95 Room Air 01/01/17 06:00 57 01/01/17 04:00 68 01/01/17 04:00 98.9 62 21 123/88 100 01/01/17 02:00 77 01/01/17 00:00 98.2 79 18 130/76 95 01/01/17 00:00 68 12/31/16 22:00 74 12/31/16 20:00 86 12/31/16 20:00 95 12/31/16 20:00 98.4 88 22 136/81 100 12/31/16 19:00 100 Room Air Physical Exam GENERAL: This is a well-nourished, well-developed patient, in no apparent distress. SKIN: No rashes, ecchymoses or lesions. Cool and dry. HEAD: Atraumatic. Normocephalic. No temporal or scalp tenderness. There is suture noted to the right side of dudley. EYES: Right periorbital bruising and swelling is noted. Has difficulty opening her right eye due to swelling. Left pupil reactive. Extraocular motions intact. No scleral icterus. No injection or drainage. ENT: Nose without bleeding, purulent drainage or septal hematoma. Throat without erythema, tonsillar hypertrophy or exudate. Uvula midline. Airway patent. NECK: Trachea midline. No JVD or lymphadenopathy. Supple, nontender, no meningeal signs. CARDIOVASCULAR: Regular rate and rhythm without murmurs, gallops, or rubs. RESPIRATORY: Clear to auscultation. Breath sounds equal bilaterally. No wheezes , rales, or rhonchi. GASTROINTESTINAL: Abdomen soft, non-tender, nondistended. No hepato-splenomegaly , or palpable masses. No guarding. MUSCULOSKELETAL: Extremities without clubbing, cyanosis, or edema. No joint tenderness, effusion, or edema noted. No calf tenderness. Negative Homans sign bilaterally. NEUROLOGICAL: Patient opens eyes to voice and touch, she is mumbling a few words but is difficult to understand. She follows commands inconsistently. Difficult to assess neurological status. Laboratory Laboratory Tests Test 12/31/16 01/01/17 19:00 03:20 Nasal Screen MRSA (PCR) MRSA NOT DETECTED White Blood Count 7.7 Red Blood Count 4.43 Hemoglobin 13.7 Hematocrit 40.3 Mean Corpuscular Volume 91.0 Mean Corpuscular Hemoglobin 31.0 Mean Corpuscular Hemoglobin 34.1 Concent Red Cell Distribution Width 13.6 Platelet Count 197 Mean Platelet Volume 11.1 Sodium Level 145 Potassium Level 3.4 Chloride Level 110 Carbon Dioxide Level 27.2 Anion Gap 8 Blood Urea Nitrogen 9 Creatinine 0.60 Estimat Glomerular Filtration 99 Rate Random Glucose 79 Calcium Level 8.6 Phosphorus Level 3.1 Magnesium Level 2.1 ([place]) Result Diagram: 01/01/17 0320 01/01/17 0320 Imaging Last Impressions Head CT 01/01/17 0600 Signed Impressions: Service Date/Time: Sunday, January 01, 2017 04:14 - CONCLUSION: 1. Stable small right-sided subdural hematoma without change compared to the prior exam. 2. Diffuse bilateral cortical atrophy. Pb Callaway MD Maxillofacial CT 12/31/16 0000 Signed Impressions: Service Date/Time: Saturday, December 31, 2016 16:31 - CONCLUSION: Infraorbital rim fracture and right nasal bone fracture. Roman Li MD Cervical Spine CT 12/31/16 0000 Signed Impressions: Service Date/Time: Saturday, December 31, 2016 13:56 - CONCLUSION: Slight degenerative spondylosis without any significant compromise to the thecal sac or the exiting nerve roots. Roman Li MD ([place]) A/P Diagnosis: (1) Subdural hematoma (2) Laceration of face (3) Facial bone fracture (4) Dementia (5) Hyperlipidemia (6) HTN (hypertension) Assessment and Plan Thank you for this consultation, we will assist with medical management 71-year-old elderly female with history of dementia, presented to emergency room after an unwitnessed fall. Was found with right small frontal subdural hemorrhage, right infraorbital fracture, maxillary sinus, right lateral wall fracture and fracture of the nasal bone. -Neurosurgery following patient -Follow up CT of the head results are noted, bleed is stable. Continue neuro checks Control and monitor blood pressure Maxillofacial surgeon has been consulted, we will follow up on the recommendations Avoid anticoagulation. Dementia, history of schizophrenia Continue with home medications-Seroquel, Namenda and Aricept. Hx of HTN, BP is low 100s -Continue with continue with lisinopril if blood pressure greater than 120 When necessary medications have been added, hydralazine as well as Lopressor to control if blood pressure elevated. Medications reviewed, initiated as indicated Continue with SCDs for DVT prophylaxis Plan of care has been discussed with the attending and RN. Further management of the patient will be dependent on the hospital course This patient was seen by myself and , this consultation is written on his behalf ([place]) Discharge Planning seen, examined by myself, Dr Forbes, today This is a 71-year-old female resident of a local snf. She has a history of dementia. Her CODE STATUS is DO NOT RESUSCITATE. She came in after a fall. She had a evidence of small right sided subdural hematoma, right maxillary sinus fracture, right nasal bone fracture and a right infraorbital fracture. She was seen by the undersigned in room 1304. She is alert but not verbally responsive. She does not look in any distress. Potassium was low and his knee replaced Discussed with nurse Discussed with mid level provider The exam, history, and the medical decision-making described in the above note were completed with the assistance of the mid-level provider. I reviewed the findings presented. I attest that I had a [id number] encounter with the patient on the same day, and personally performed and documented my assessment and findings in the medical record. Thank you for this consultation We'll follow the patient daily while hospitalized (Sharon Forbes MD) Problem Qualifiers (1) Laceration of face: Qualified Code: S01.81XA - Laceration of face, initial encounter (2) Facial bone fracture: Qualified Code: S02.81XA - Closed fracture of other bone of right side of face , initial encounter (3) Dementia: Qualified Code: F03.90 - Dementia without behavioral disturbance, unspecified dementia type (4) Hyperlipidemia: Qualified Code: E78.5 - Hyperlipidemia, unspecified hyperlipidemia type (5) HTN (hypertension): Qualified Code: I10 - Essential hypertension [place] Jan 01, 2017 14:19 Sharon Forbes MD Jan 01, 2017 16:29
[2017-01-01] MEDS: SODIUM CHLOR 0.9% 1000 ML INJ 1,000 ML IV SCH (16:43)
[2017-01-01] MEDS: ATORVASTATIN 10 MG TAB PO SCH (19:54)
[2017-01-01] MEDS: MIRTAZAPINE 15 MG TAB PO SCH (19:54)
[2017-01-01] MEDS: DONEPEZIL HCL 5 MG TAB PO SCH (19:54)
[2017-01-02] VITALS (12 sets, daily range): BP systolic 98–142; BP diastolic 48–74; PULSE 71–95; RESP 12–21; TEMP 97.9–98.9; O2SAT 94–100
[2017-01-02] MEDS: CHLORHEXIDINE GLUCONATE 2 % 1 PACK (2 CLOTHS) TOP SCH (04:00)
[2017-01-02] MEDS: INSULIN ASPART SUPPLEMENTAL SCALE SQ SCH ×4 (06:59→21:00)
[2017-01-02] MEDS: PANTOPRAZOLE SODIUM 40 MG VIAL IV SCH (08:47)
[2017-01-02] MEDS: SODIUM CHLORIDE 0.9% FLUSH 10 ML FLUSH IV FLUSH SCH ×2 (08:47→20:17)
[2017-01-02] MEDS: MEMANTINE HCL 10 MG TAB PO SCH ×2 (08:47→20:14)
[2017-01-02] MEDS: QUEtiapine FUMARATE 25 MG TAB PO SCH ×2 (08:48→20:15)
[2017-01-02] MEDS: LISINOPRIL 5 MG TAB PO SCH (08:48)
[2017-01-02] MEDS: DOCUSATE SODIUM 50 MG/SENNA 8.6 MG TAB PO SCH ×2 (08:48→20:17)
[2017-01-02] MEDS: TRIAMCINOLONE ACETONIDE 0.1% CREAM 15 GM TOPICAL SCH ×2 (08:48→20:19)
--- NOTE | 2017-01-02 09:02 | HHI.NSPN ---
(Jhonny Horn) History Chief Complaint: Mild TBI. Severe dementia. (Jhonny Horn) Interval History 71-year-old female who [facility] and has a history of advanced dementia along with schizophrenia and is not very communicative at baseline. [facility] facility and was brought to [facility] and a CT scan of the head obtained which reveals a small right frontal, about 5-mm thick subdural hemorrhage without any midline shift and generalized atrophy. There is also a fracture of the right maxillary sinus and infraorbital rim noted. CT of the cervical spine does not reveal any fractures. The patient is not very communicative and will mumble a few words but cannot relate a history or give any reliable information. 01/01/17: No change in examination with a follow-up CT scan of the head this morning is stable. 01/02/17: Pt not cooperating for exam. Reportedly wakes up more in afternoon but has hallucinations all day per RN. (Jhonny Horn) System Review Comments Not able to obtain given clinical condition. (Jhonny Horn) Exam Results Vital Signs Date Time Temp Pulse Resp B/P Pulse Ox O2 Delivery O2 Flow Rate FiO2 01/02/17 08:00 98.5 87 14 98/48 98 01/02/17 07:00 Room Air Intake and Output 01/01/17 01/01/17 01/02/17 08:00 16:00 00:00 Intake Total 369 ml 587 ml 369 ml Output Total 350 ml 1000 ml 775 ml Balance 19 ml -413 ml -406 ml (Jhonny Horn) Physical Examination Resp: CTA bilaterally Heart: NSR no murmurs Abd: soft positive bs Skin: No cyanosis or erythema Muscle: Not following commands for muscle testing. Neuro: Pt Not opening eyes or following commands. RN states she wakes up in the afternoon. (Jhonny Horn) Lab, Micro, Other Results Last Impressions Head CT 01/01/17 0600 Signed Impressions: Service Date/Time: Sunday, January 01, 2017 04:14 - CONCLUSION: 1. Stable small right-sided subdural hematoma without change compared to the prior exam. 2. Diffuse bilateral cortical atrophy. Pb Callaway MD Maxillofacial CT 12/31/16 0000 Signed Impressions: Service Date/Time: Saturday, December 31, 2016 16:31 - CONCLUSION: Infraorbital rim fracture and right nasal bone fracture. Roman Li MD Cervical Spine CT 12/31/16 0000 Signed Impressions: Service Date/Time: Saturday, December 31, 2016 13:56 - CONCLUSION: Slight degenerative spondylosis without any significant compromise to the thecal sac or the exiting nerve roots. Roman iL MD 01/01/17 01/01/17 01/02/17 15:00 23:00 07:00 Intake Total 587 ml 369 ml 304 ml Output Total 1000 ml 775 ml 250 ml Balance -413 ml -406 ml 54 ml Intake IV Total 587 ml 369 ml 304 ml Output Urine Total 1000 ml 775 ml 250 ml # Bowel Movements 2 (Jhonny Horn) Medical Decision Making Impression and Plan A: 1. Mild traumatic brain injury with a small right frontal subdural hemorrhage with generalized atrophy. Stable follow-up CT scan of the head this morning. 2. Right infraorbital fracture, maxillary sinus right lateral wall fracture and fracture of the nasal bone. 3. Severe dementia with very poor baseline neurologic condition reportedly. 4. History of schizophrenia. Plan Continue to monitor Increase activity status as tolerated with physical therapy. Transfer to regular floor. (Jhonny Horn) Attending Statement The exam, history, and the medical decision-making described in the above note were completed with the assistance of the mid-level provider. I reviewed and agree with the findings presented. I attest that I had a [id number] encounter with the patient on the same day, and personally performed and documented my assessment and findings in the medical record. More alert today and will follow simple commands with persistence. Transfer to floor and continue with observation and rehabilitation. Maxillofacial surgery consult to render opinion regarding the facial fractures. (Dharmesh Hayes MD) Jhonny Horn Jan 02, 2017 09:02 Dharmesh Hayes MD Jan 02, 2017 09:35
[2017-01-02 12:23] LABS: BICARBONATE 28.1 MEQ/L (21.0-32.0); POTASSIUM 3.4 MEQ/L (3.5-5.1)
[2017-01-02] MEDS ORDERED: POTASSIUM CHLORIDE 25 MEQ EFFERVESCENT TAB PO ONE (12:30)
--- NOTE | 2017-01-02 12:35 | HHI.PR ---
Subjective Subjective Remarks mumbling, difficult to understand awake not following commands bp stable unable to obtain ROS Review of Systems Constitutional Constitutional Remarks unable to obtain ROS Vitals/Results Intake & Output 01/01/17 01/01/17 01/02/17 15:00 23:00 07:00 Intake Total 587 ml 369 ml 304 ml Output Total 1000 ml 775 ml 250 ml Balance -413 ml -406 ml 54 ml Intake IV Total 587 ml 369 ml 304 ml Output Urine Total 1000 ml 775 ml 250 ml # Bowel Movements 2 Vital Signs Vital Signs Date Time Temp Pulse Resp B/P Pulse Ox O2 Delivery O2 Flow Rate FiO2 01/02/17 10:00 90 01/02/17 08:00 98.5 87 14 98/48 98 01/02/17 08:00 87 01/02/17 07:00 99 Room Air 01/02/17 06:00 95 01/02/17 04:00 95 01/02/17 04:00 98.9 81 16 142/74 98 01/02/17 02:00 85 01/02/17 00:00 71 01/02/17 00:00 98.1 83 21 100/68 100 01/01/17 22:00 74 01/01/17 20:00 88 01/01/17 20:00 98.2 81 16 132/84 100 01/01/17 19:00 99 Room Air 01/01/17 18:00 95 01/01/17 16:00 98.5 78 20 116/80 95 01/01/17 16:00 65 01/01/17 14:00 67 CBC/BMP: 01/01/17 0320 01/02/17 1050 Lab Results Laboratory Tests Test 01/02/17 10:50 Sodium Level 142 MEQ/L Potassium Level 3.4 MEQ/L Chloride Level 109 MEQ/L Carbon Dioxide Level 28.1 MEQ/L Anion Gap 5 MEQ/L Blood Urea Nitrogen 11 MG/DL Creatinine 0.75 MG/DL Estimat Glomerular Filtration 77 ML/MIN Rate Random Glucose 145 MG/DL Calcium Level 8.9 MG/DL Physical Exam General General Appearance: Well Developed, No Acute Distress, Comfortable Eyes Eye Exam: Pupils Equal, Pupils Reactive, Extraocular Movement Intact Eye Remarks left periorbital swelling and bruising Ears & Nose Ears & Nose Exam: Nasal Mucosa [place] Throat Throat Exam: Oral Mucosa [place] & Moist Neck Neck Exam: Neck Supple, Trachea Midline Pulmonary Resp Exam: Clear Bilaterally, No Distress Cardiology CV Exam: Regular, Good Perfusion Gastrointestinal/Abdomen GI Exam: Soft, Non-Tender, Bowel Sounds Present, Non-Distended Genitourinary Exam: Clear Urine Remarks CRESPO Musculoskeletal MS Exam: Joints Intact, Atrophy, Unable to Ambulate Integumentary Skin Exam: Warm, Dry Extremeties Extremities Exam: No Edema, Pedal Pulses Palpable Neurologic Neuro Exam: Awake, Moving All Extremities VTE Prophylaxis VTE Prophylaxis Device: SCDs Assessment/Plan Problem List: (1) Subdural hematoma (2) Facial bone fracture (3) Laceration of face (4) Dementia (5) Hyperlipidemia (6) HTN (hypertension) Assessment/Plan 71-year-old elderly female with history of dementia, presented to emergency room after an unwitnessed fall. Was found with right small frontal subdural hemorrhage, right infraorbital fracture, maxillary sinus, right lateral wall fracture and fracture of the nasal bone. -Neurosurgery following patient -Follow up CT of the head results noted, bleed is stable. Continue neuro checks Control and monitor blood pressure Maxillofacial surgeon has been consulted, we will follow up on the recommendations, pending Avoid anticoagulation. Dementia, history of schizophrenia Continue with home medications-Seroquel, Namenda and Aricept. Hx of HTN, BP is low 100s -Continue with continue with lisinopril if blood pressure greater than 120 When necessary medications have been added, hydralazine as well as Lopressor to control if blood pressure elevated. DNR status waiting to transfer out of ICU Continue with SCDs for DVT prophylaxis Poss dc in 1-2 days D/W Dr. Forbes This patient was seen by myself and , this note is written on his behalf Problem Qualifiers (1) Facial bone fracture: Qualified Code: S02.81XA - Closed fracture of other bone of right side of face , initial encounter (2) Laceration of face: Qualified Code: S01.81XA - Laceration of face, initial encounter (3) Dementia: Qualified Code: F03.90 - Dementia without behavioral disturbance, unspecified dementia type (4) Hyperlipidemia: Qualified Code: E78.5 - Hyperlipidemia, unspecified hyperlipidemia type (5) HTN (hypertension): Qualified Code: I10 - Essential hypertension [place] Jan 02, 2017 12:34
[2017-01-02] MEDS: SODIUM CHLOR 0.9% 1000 ML INJ 1,000 ML IV SCH (16:38)
[2017-01-02] MEDS: MIRTAZAPINE 15 MG TAB PO SCH (20:16)
[2017-01-02] MEDS: ATORVASTATIN 10 MG TAB PO SCH (20:17)
[2017-01-02] MEDS: DONEPEZIL HCL 5 MG TAB PO SCH (20:17)
[2017-01-03] VITALS (7 sets, daily range): BP systolic 105–143; BP diastolic 55–79; PULSE 66–85; RESP 16–20; TEMP 96.4–99.8; O2SAT 93–96
[2017-01-03] MEDS: CHLORHEXIDINE GLUCONATE 2 % 1 PACK (2 CLOTHS) TOP SCH (03:28)
[2017-01-03] MEDS: INSULIN ASPART SUPPLEMENTAL SCALE SQ SCH ×4 (05:43→21:00)
[2017-01-03] MEDS: DOCUSATE SODIUM 50 MG/SENNA 8.6 MG TAB PO SCH ×2 (09:13→22:30)
[2017-01-03] MEDS: SODIUM CHLORIDE 0.9% FLUSH 10 ML FLUSH IV FLUSH SCH ×2 (09:14→21:00)
[2017-01-03] MEDS: LISINOPRIL 5 MG TAB PO SCH (09:14)
[2017-01-03] MEDS: QUEtiapine FUMARATE 25 MG TAB PO SCH ×2 (09:14→22:29)
[2017-01-03] MEDS: TRIAMCINOLONE ACETONIDE 0.1% CREAM 15 GM TOPICAL SCH ×2 (09:14→22:31)
[2017-01-03] MEDS: PANTOPRAZOLE SODIUM 40 MG VIAL IV SCH (09:14)
[2017-01-03] MEDS: MEMANTINE HCL 10 MG TAB PO SCH ×2 (09:14→22:28)
--- NOTE | 2017-01-03 11:43 | HHI.PR ---
Subjective Subjective Remarks sleeping, has received Seroquel per nursing, remains confused no fever bp stable unable to obtain ROS Review of Systems Constitutional Constitutional Remarks unable to obtain ROS Vitals/Results Intake & Output 01/02/17 01/02/17 01/03/17 14:59 22:59 06:59 Intake Total 480 ml 120 ml Output Total 700 ml 350 ml 350 ml Balance -220 ml -230 ml -350 ml Intake Oral 480 ml 120 ml IV Total 0 ml 0 ml Output Urine Total 700 ml 350 ml 350 ml # Bowel Movements 2 0 1 Vital Signs Vital Signs Date Time Temp Pulse Resp B/P Pulse Ox O2 Delivery O2 Flow Rate FiO2 01/03/17 08:08 98.5 73 19 122/64 94 01/03/17 04:00 98.0 80 16 106/67 94 01/03/17 00:00 99.3 85 18 143/73 95 01/02/17 22:00 85 01/02/17 20:00 81 01/02/17 20:00 97.9 91 12 105/56 94 01/02/17 19:00 94 Room Air 01/02/17 18:00 85 01/02/17 16:00 85 01/02/17 16:00 98.5 85 14 120/50 98 01/02/17 14:00 86 01/02/17 12:00 90 01/02/17 12:00 98.5 90 14 110/59 98 CBC/BMP: 01/01/17 0320 01/02/17 1050 Physical Exam General General Appearance: Well Developed, No Acute Distress, Comfortable, Sleeping Eyes Eye Exam: Pupils Equal, Pupils Reactive, Extraocular Movement Intact Eye Remarks left periorbital swelling and bruising Ears & Nose Ears & Nose Exam: Nasal Mucosa [place] Throat Throat Exam: Oral Mucosa [place] & Moist Neck Neck Exam: Neck Supple, Trachea Midline Pulmonary Resp Exam: Clear Bilaterally, No Distress Cardiology CV Exam: Regular, Good Perfusion Gastrointestinal/Abdomen GI Exam: Soft, Non-Tender, Bowel Sounds Present, Non-Distended Genitourinary Exam: Clear Urine Remarks SAGASTUME Musculoskeletal MS Exam: Joints Intact, Atrophy, Unable to Ambulate Integumentary Skin Exam: Warm, Dry Extremeties Extremities Exam: No Edema, Pedal Pulses Palpable Neurologic Neuro Exam: Moving All Extremities Neuro Remarks sleeping VTE Prophylaxis VTE Prophylaxis Device: SCDs Assessment/Plan Problem List: (1) Subdural hematoma (2) Facial bone fracture (3) Laceration of face (4) Dementia (5) Hyperlipidemia (6) HTN (hypertension) Assessment/Plan 71-year-old elderly female with history of dementia, presented to emergency room after an unwitnessed fall. Was found with right small frontal subdural hemorrhage, right infraorbital fracture, maxillary sinus, right lateral wall fracture and fracture of the nasal bone. -Neurosurgery following patient -Follow up CT of the head results noted, bleed is stable. Continue neuro checks Control and monitor blood pressure Maxillofacial surgeon has been consulted, we will follow up on the recommendations, pending Avoid anticoagulation. Dementia, history of schizophrenia Continue with home medications-Seroquel, Namenda and Aricept. -decrease Seroquel to 25 mg po bid Hx of HTN, BP is low 100s -BP well controlled, continue Lisinopril DNR status Continue with SCDs for DVT prophylaxis DC sagastume still waiting for maxillofacial consult hopefully dc if no procedures are required D/W Dr. Forbes D/W RN This patient was seen by myself and , this note is written on his behalf Problem Qualifiers (1) Facial bone fracture: Qualified Code: S02.81XA - Closed fracture of other bone of right side of face , initial encounter (2) Laceration of face: Qualified Code: S01.81XA - Laceration of face, initial encounter (3) Dementia: Qualified Code: F03.90 - Dementia without behavioral disturbance, unspecified dementia type (4) Hyperlipidemia: Qualified Code: E78.5 - Hyperlipidemia, unspecified hyperlipidemia type (5) HTN (hypertension): Qualified Code: I10 - Essential hypertension [place] [facility] Jan 03, 2017 11:43
--- NOTE | 2017-01-03 18:20 | HHI.NSPN ---
History Chief Complaint: Mild TBI. Severe dementia. Interval History 71-year-old female who resides in a [facility] and has a history of advanced dementia along with schizophrenia and is not very communicative at baseline. She fell at the [facility] facility and was brought to [facility] and a CT scan of the head obtained which reveals a small right frontal, about 5-mm thick subdural hemorrhage without any midline shift and generalized atrophy. There is also a fracture of the right maxillary sinus and infraorbital rim noted. CT of the cervical spine does not reveal any fractures. The patient is not very communicative and will mumble a few words but cannot relate a history or give any reliable information. 01/01/17: No change in examination with a follow-up CT scan of the head this morning is stable. 01/02/17: Pt not cooperating for exam. Reportedly wakes up more in afternoon but has hallucinations all day per RN. 01/03/17: Pt more awake this afternoon. She is not appropriate in her speech and is not following commands. System Review Comments Not able to obtain given clinical condition. Exam Results Vital Signs Date Time Temp Pulse Resp B/P Pulse Ox O2 Delivery O2 Flow Rate FiO2 01/03/17 16:00 96.4 68 19 124/79 96 01/03/17 08:45 Room Air Intake and Output 01/02/17 01/02/17 01/03/17 08:00 16:00 00:00 Intake Total 304 ml 480 ml 120 ml Output Total 250 ml 700 ml 350 ml Balance 54 ml -220 ml -230 ml Physical Examination Resp: CTA bilaterally Heart: NSR no murmurs Abd: soft positive bs Skin: No cyanosis or erythema Muscle: Not following commands for muscle testing. Neuro: Pt awake. Not following commands. She is not appropriate in her speech. Lab, Micro, Other Results Last Impressions Head CT 01/01/17 0600 Signed Impressions: Service Date/Time: Sunday, January 01, 2017 04:14 - CONCLUSION: 1. Stable small right-sided subdural hematoma without change compared to the prior exam. 2. Diffuse bilateral cortical atrophy. Pb Callaway MD Maxillofacial CT 12/31/16 0000 Signed Impressions: Service Date/Time: Saturday, December 31, 2016 16:31 - CONCLUSION: Infraorbital rim fracture and right nasal bone fracture. Roman Li MD Cervical Spine CT 12/31/16 0000 Signed Impressions: Service Date/Time: Saturday, December 31, 2016 13:56 - CONCLUSION: Slight degenerative spondylosis without any significant compromise to the thecal sac or the exiting nerve roots. Roman Li MD 01/02/17 01/02/17 01/03/17 15:00 23:00 07:00 Intake Total 480 ml 120 ml Output Total 700 ml 350 ml 350 ml Balance -220 ml -230 ml -350 ml Intake Oral 480 ml 120 ml IV Total 0 ml 0 ml Output Urine Total 700 ml 350 ml 350 ml # Bowel Movements 2 0 1 Medical Decision Making Impression and Plan A: 1. Mild traumatic brain injury with a small right frontal subdural hemorrhage with generalized atrophy. Stable follow-up CT scan of the head this morning. 2. Right infraorbital fracture, maxillary sinus right lateral wall fracture and fracture of the nasal bone. 3. Severe dementia with very poor baseline neurologic condition reportedly. 4. History of schizophrenia. Plan Continue to monitor Increase activity status as tolerated with physical therapy. Rehab placement Jhonny Horn Jan 03, 2017 18:20
[2017-01-03] MEDS: DONEPEZIL HCL 5 MG TAB PO SCH (22:28)
[2017-01-03] MEDS: ATORVASTATIN 10 MG TAB PO SCH (22:29)
[2017-01-03] MEDS: MIRTAZAPINE 15 MG TAB PO SCH (22:29)
[2017-01-04] MEDS: CHLORHEXIDINE GLUCONATE 2 % 1 PACK (2 CLOTHS) TOP SCH (04:00)
[2017-01-04 05:47] VITALS: BP 139/67; PULSE 78; RESP 16; TEMP 97.8; O2SAT 95
[2017-01-04 08:24] VITALS: BP 104/58; PULSE 67; RESP 18; TEMP 97.6; O2SAT 95
[2017-01-04] MEDS: MEMANTINE HCL 10 MG TAB PO SCH (09:09)
[2017-01-04] MEDS: QUEtiapine FUMARATE 25 MG TAB PO SCH (09:09)
[2017-01-04] MEDS: LISINOPRIL 5 MG TAB PO SCH (09:09)
[2017-01-04] MEDS: PANTOPRAZOLE SODIUM 40 MG VIAL IV SCH (09:10)
[2017-01-04] MEDS: SODIUM CHLORIDE 0.9% FLUSH 10 ML FLUSH IV FLUSH SCH (09:10)
[2017-01-04] MEDS: DOCUSATE SODIUM 50 MG/SENNA 8.6 MG TAB PO SCH (09:10)
[2017-01-04] MEDS: TRIAMCINOLONE ACETONIDE 0.1% CREAM 15 GM TOPICAL SCH (09:10)
--- NOTE | 2017-01-04 10:08 | HHI.NSPN ---
History Chief Complaint: Mild TBI. Severe dementia. Interval History 71-year-old female who resides in a group home and has a history of advanced dementia along with schizophrenia and is not very communicative at baseline. She fell at the group home facility and was brought to [facility] and a CT scan of the head obtained which reveals a small right frontal, about 5-mm thick subdural hemorrhage without any midline shift and generalized atrophy. There is also a fracture of the right maxillary sinus and infraorbital rim noted. CT of the cervical spine does not reveal any fractures. The patient is not very communicative and will mumble a few words but cannot relate a history or give any reliable information. 01/01/17: No change in examination with a follow-up CT scan of the head this morning is stable. 01/02/17: Pt not cooperating for exam. Reportedly wakes up more in afternoon but has hallucinations all day per RN. 01/03/17: Pt more awake this afternoon. She is not appropriate in her speech and is not following commands. 01/04: Patient awake. Speech is not appropriate. She does not answer questions correctly. She does not follow commands. System Review Comments Not able to obtain given clinical condition. Exam Results Vital Signs Date Time Temp Pulse Resp B/P Pulse Ox O2 Delivery O2 Flow Rate FiO2 01/04/17 08:24 97.6 67 18 104/58 95 01/04/17 08:20 Room Air Intake and Output 01/03/17 01/03/17 01/04/17 08:00 16:00 00:00 Output Total 350 ml 700 ml Balance -350 ml -700 ml Physical Examination Resp: CTA bilaterally Heart: NSR no murmurs Abd: soft positive bs Skin: No cyanosis or erythema. She has right periorbital ecchymosis. Muscle: Not following commands for muscle testing. Neuro: Pt awake. Not following commands. She is not appropriate in her speech. Lab, Micro, Other Results Last Impressions Head CT 01/01/17 0600 Signed Impressions: Service Date/Time: Sunday, January 01, 2017 04:14 - CONCLUSION: 1. Stable small right-sided subdural hematoma without change compared to the prior exam. 2. Diffuse bilateral cortical atrophy. Pb Callaway MD Maxillofacial CT 12/31/16 0000 Signed Impressions: Service Date/Time: Saturday, December 31, 2016 16:31 - CONCLUSION: Infraorbital rim fracture and right nasal bone fracture. Roman Li MD Cervical Spine CT 12/31/16 0000 Signed Impressions: Service Date/Time: Saturday, December 31, 2016 13:56 - CONCLUSION: Slight degenerative spondylosis without any significant compromise to the thecal sac or the exiting nerve roots. Roman Li MD 01/03/17 01/03/17 01/04/17 15:00 23:00 07:00 Output Total 700 ml Balance -700 ml Output Urine Total 700 ml # Voids 1 2 # Bowel Movements 2 1 3 Medical Decision Making Impression and Plan A: 1. Mild traumatic brain injury with a small right frontal subdural hemorrhage with generalized atrophy. Stable follow-up CT scan of the head this morning. 2. Right infraorbital fracture, maxillary sinus right lateral wall fracture and fracture of the nasal bone. 3. Severe dementia with very poor baseline neurologic condition reportedly. 4. History of schizophrenia. Plan Continue to monitor Increase activity status as tolerated with physical therapy. Rehab placement Jhonny Horn Jan 04, 2017 10:08
[2017-01-04] MEDS: INSULIN ASPART SUPPLEMENTAL SCALE SQ SCH (11:31)
--- NOTE | 2017-01-04 14:35 | HHI.PR ---
Subjective Subjective Remarks awake consuelo talking , laughing rt. eye raccon bruising no faqcial grimmace afebrile Review of Systems Constitutional Constitutional Remarks unable to obtain, dementia Vitals/Results Intake & Output 01/03/17 01/03/17 01/04/17 14:59 22:59 06:59 Output Total 700 ml Balance -700 ml Output Urine Total 700 ml # Voids 1 2 # Bowel Movements 2 1 3 Vital Signs Vital Signs Date Time Temp Pulse Resp B/P Pulse Ox O2 Delivery O2 Flow Rate FiO2 01/04/17 08:24 97.6 67 18 104/58 95 01/04/17 08:20 Room Air 01/04/17 05:47 97.8 78 16 139/67 95 01/03/17 23:53 99.8 81 16 113/55 93 01/03/17 20:00 98.9 82 20 123/67 95 01/03/17 16:00 96.4 68 19 124/79 96 CBC/BMP: 01/01/17 0320 01/02/17 1050 Physical Exam General General Appearance: Well Developed, No Acute Distress, Comfortable, Sleeping Eyes Eye Exam: Pupils Equal, Pupils Reactive, Extraocular Movement Intact Eye Remarks rt. raccon eye Ears & Nose Ears & Nose Exam: Nasal Mucosa [facility] Throat Throat Exam: Oral Mucosa [facility] & Moist Neck Neck Exam: Neck Supple, Trachea Midline Pulmonary Resp Exam: Clear Bilaterally, No Distress Cardiology CV Exam: Regular, Good Perfusion Gastrointestinal/Abdomen GI Exam: Soft, Non-Tender, Bowel Sounds Present, Non-Distended Genitourinary Exam: Clear Urine Musculoskeletal MS Exam: Joints Intact, Atrophy, Unable to Ambulate Integumentary Skin Exam: Warm, Dry Extremeties Extremities Exam: No Edema, Pedal Pulses Palpable Neurologic Neuro Exam: Awake, Moving All Extremities VTE Prophylaxis VTE Prophylaxis Device: SCDs Assessment/Plan Problem List: (1) Subdural hematoma (2) Facial bone fracture (3) Laceration of face (4) Dementia (5) Hyperlipidemia (6) HTN (hypertension) Assessment/Plan vital sign reviewed, low grade fever, 99.8 labs reviewed, hypokalemia treated NO CODE DNR, status -Neurosurgery following patient, appreciate input. Plan for rehab SNF stable head bleed, neuro checks for any acute changes. Continue neuro checks Maxillofacial surgeon consult, rt eye raccon color, stable Dementia, history of schizophrenia medical management Hx of HTN, BP, stable monitor DNR status Continue with SCDs for DVT prophylaxis D/W Dr. Forbes, seen on his [facility] D/W RN DC planning, rehab SNF, Problem Qualifiers (1) Facial bone fracture: Qualified Code: S02.81XA - Closed fracture of other bone of right side of face , initial encounter (2) Laceration of face: Qualified Code: S01.81XA - Laceration of face, initial encounter (3) Dementia: Qualified Code: F03.90 - Dementia without behavioral disturbance, unspecified dementia type (4) Hyperlipidemia: Qualified Code: E78.5 - Hyperlipidemia, unspecified hyperlipidemia type (5) HTN (hypertension): Qualified Code: I10 - Essential hypertension Soumya Iqbal Jan 04, 2017 14:34
--- NOTE | 2017-01-05 16:17 | HHI.DS ---
Discharge Summary Admission Date Dec 31, 2016 at 15:27 Discharge Date: Jan 04, 2017 Admitting Diagnosis Subdural hematoma (1) Subdural hematoma Diagnosis: Principal (2) Laceration of face Diagnosis: Principal (3) Facial bone fracture Diagnosis: Principal (4) Dementia Diagnosis: Secondary (5) Hyperlipidemia Diagnosis: Secondary (6) HTN (hypertension) Diagnosis: Secondary Procedures CT scan Brief History This was a 71-year-old elderly white female from a local [facility] with history of advanced dementia along with schizophrenia, hypertension, hyperlipidemia. [facility] was [facility] in from [facility] after she had a fall. A CT of the head was done that showed a small right frontal, 5 mm thick subdural hemorrhage without any midline shift and generalized atrophy. There was also an acute fracture of the right maxillary sinus in the infraorbital rim. CT of the cervical spine did not reveal any acute findings. Patient was unable to provide any information, she is only able to mumble a few words. Information was obtained from the medical record. CBC/BMP: 01/01/17 0320 01/02/17 1050 Imaging Last Impressions Head CT 01/01/17 0600 Signed Impressions: Service Date/Time: Sunday, January 01, 2017 04:14 - CONCLUSION: 1. Stable small right-sided subdural hematoma without change compared to the prior exam. 2. Diffuse bilateral cortical atrophy. Pb Callaway MD Maxillofacial CT 12/31/16 0000 Signed Impressions: Service Date/Time: Saturday, December 31, 2016 16:31 - CONCLUSION: Infraorbital rim fracture and right nasal bone fracture. Roman Li MD Cervical Spine CT 12/31/16 0000 Signed Impressions: Service Date/Time: Saturday, December 31, 2016 13:56 - CONCLUSION: Slight degenerative spondylosis without any significant compromise to the thecal sac or the exiting nerve roots. Roman Li MD PE at Discharge General General Appearance: Well Developed, No Acute Distress, Comfortable, Sleeping Eyes Eye Exam: Pupils Equal, Pupils Reactive, Extraocular Movement Intact Eye Remarks left periorbital swelling and bruising Ears & Nose Ears & Nose Exam: Nasal Mucosa Mcqueeney Throat Throat Exam: Oral Mucosa Mcqueeney & Moist Neck Neck Exam: Neck Supple, Trachea Midline Pulmonary Resp Exam: Clear Bilaterally, No Distress Cardiology CV Exam: Regular, Good Perfusion Gastrointestinal/Abdomen GI Exam: Soft, Non-Tender, Bowel Sounds Present, Non-Distended Genitourinary Exam: Clear Urine Remarks ZAK Musculoskeletal MS Exam: Joints Intact, Atrophy, Unable to Ambulate Integumentary Skin Exam: Warm, Dry Extremeties Extremities Exam: No Edema, Pedal Pulses Palpable Neurologic Neuro Exam: Moving All Extremities Neuro Remarks sleeping VTE Prophylaxis VTE Prophylaxis Device: SCDs Hospital Course Patient was evaluated in the emergency room, she had sutures placed with laceration to the chin. She was admitted to the intensive care unit with porcelain buildup assistant consultation for closer monitoring. Dr. Diego Spaulding was consulted and has evaluated patient and recommended observation and monitoring with follow -up CT of the head. He does not anticipate any surgical interventions. Oral maxillofacial surgery has been consulted for the orbital and nasal right maxillary sinus fractures. Patient remained in the ICU, blood pressure was stable. She was not able to provide any details. Patient was a DNR. Hospitalist services are requested to assume medical management. Diagnoses and comorbidities listed were used to care for patient during this hospital stay and her course of treatment. (1) Subdural hematoma (2) Facial bone fracture (3) Laceration of face (4) Dementia (5) Hyperlipidemia (6) HTN (hypertension) Vital signs and labs were monitored throughout this four-day stay, any treatment was monitored for any abnormals -Neurosurgery was consult did and following patient -Follow up CT of the head results noted, bleed is stable. Continue neuro checks which were basically unchanged throughout hospital stay Control and monitor blood pressure Maxillofacial surgeon has been consulted, but no follow-up was needed during this hospital stay. Avoid anticoagulation. Dementia, history of schizophrenia Continue with home medications-Seroquel, Namenda and Aricept. -decrease Seroquel to 25 mg po bid Hx of HTN, BP is low 100s -BP well controlled, continue Lisinopril DNR status, CODE STATUS throughout this hospital stay Continue with SCDs for DVT prophylaxis MARYLOU sagastume Patient had a stable course and was able to transition back to her previous snf bed Appreciate case management assistance, patient was medically stable on discharge Pt Condition on Discharge: Stable Discharge Disposition: Discharge to SNF Discharge Instructions DIET: Follow Instructions for: As Tolerated, No Restrictions Speech Therapy-Diet Recommends: Pureed Activities you can perform: Regular-No Restrictions Follow up Referrals: Family Practice Phys - 1 Week Continued Medications: Acetaminophen (Mapap) 325 Mg Tab 650 MG PO Q4HR PRN ELEVATED TEMP Ref 0 TAB Atorvastatin (Atorvastatin) 10 Mg Tab 10 MG PO HS Cholesterol Management #30 Ref 0 TAB Bisacodyl Supp (Dulcolax Supp) 10 Mg Supp 10 MG RECTAL DAILY PRN IF NO BM FROM MOM #12 Ref 0 SUPP Donepezil (Donepezil) 10 Mg Tab 10 MG PO HS ALZHEIMERS DISEASE #30 Ref 0 TAB Lisinopril (Zestril) 5 Mg Tab 5 MG PO DAILY SBP & DBP CHF #30 Ref 0 TAB Magnesium Hydroxide Liq (Milk of Magnesia Liq) 400 Mg/5 Ml Susp 30 ML PO DAILY PRN IF NO BM WITHIN 3 DAYS #1 Ref 0 BOTTLE Memantine (Namenda) 10 Mg Tab 10 MG PO BID CEREBRAL DEGENERATION #30 Ref 0 TAB Mirtazapine (Mirtazapine) 15 Mg Tab 15 MG PO HS MDD #30 Ref 0 TAB Multiple Vitamins W/ Minerals (Thera-M) 1 Tab 1 TAB PO DAILY Nutritional Supplement Ref 0 TAB Quetiapine XR (Seroquel XR) 50 Mg Tab 75 MG PO HS SCHIZOPHRENIA #30 Ref 0 TAB Sodium Phosphates (Enema 7-19 gm/118Ml) 1 Mala Mala 118 ML [place] DAILY PRN IF NO BM FROM SUPP Triamcinolone Topical (Triderm Topical) 0.1 % Cream 1 APPLIC TOPICAL BID Inflammation Ref 0 GM Soumya Iqbal Jan 05, 2017 16:17
== END 2017-01-04 14:29 | DRG 84 ==
LOC: NEPD 12:57 → NEDA 15:27 → N03A 18:26 → N05A 01-02 23:21
PROVIDERS: ADMIT Neurological Surgery; ATTEND Neurological Surgery
PROC: 0HQ1XZZ Repair Face Skin, External Approach (ICD-10-PCS; principal; 2016-12-31)
DX: S06.5X9A Traumatic subdural hemorrhage with loss of consciousness of unspecified duration, initial encounter (principal); F20.9 Schizophrenia, unspecified; F03.90 Unspecified dementia, unspecified severity, without behavioral disturbance, psychotic disturbance, mood disturbance, and anxiety; S01.81XA Laceration without foreign body of other part of head, initial encounter; S02.81XA Fracture of other specified skull and facial bones, right side, initial encounter for closed fracture; W19.XXXA Unspecified fall, initial encounter; Y92.129 Unspecified place in nursing home as the place of occurrence of the external cause; E87.6 Hypokalemia; I10 Essential (primary) hypertension; E78.5 Hyperlipidemia, unspecified; K59.09 Other constipation; Z66 Do not resuscitate
CPT/HCPCS: 12011; 70450; 70486; 72125; 80048; 80053; 82948; 83735; 84100; 85025; 85027; 87641; 96372; C9113; J2060; J3480; J7030

== ENCOUNTER 2017-04-26 04:32 | Inpatient (IN) | payer MEDICARE, OTHER ==
[~2017-04-26] VITALS: Ht 162.6 cm; Wt 60.1 kg
[2017-04-26] VITALS (8 sets, daily range): BP systolic 111–125; BP diastolic 57–76; PULSE 71–86; RESP 16–22; TEMP 97.6–98.8; O2SAT 95–98
[~2017-04-26 04:32] MED LIST: ATOR10TA15 PO; DONE10TA7 PO; DULC10SU3 RECTAL; ENEMENE3 PR; LISI-589 PO; MAPA325T PO; MILKSUS PO; MIRTA15 PO; NAME10TA PO; QUET50XR PO; THERTAB17 PO; TRID0.1C TOPICAL
[2017-04-26] MEDS ORDERED: TUBE5INJ3 I-DERMAL (05:15)
[2017-04-26] MEDS ORDERED: CETI10 PO (05:15)
[2017-04-26 05:39] LABS: BACTERIA, URINE MOD /hpf; BLOOD, URINE MOD (NEG); GLUCOSE,URINE NEG (NEG); KETONE, URINE NEG (NEG); MUCUS URINE FEW /lpf (OCC); NITRITE,URINE POS (NEG); RENAL EPITHELIAL CELLS 42 /hpf; URINE COLOR YELLOW (YELLW/STRAW)
[2017-04-26 05:41] LABS: COMMENT (UR) CULTURE INDICATED; CULTURE IF INDICATED CULTURE INDICATED
[2017-04-26 05:43] LABS: AUTOMATED NEUTROPHIL # 3.4 TH/MM3 (1.8-7.7); BASOPHIL % 0.3 % (0.0-2.0); EOSINOPHIL # 0.6 TH/MM3 (0-0.4); EOSINOPHIL % 7.9 % (0.0-4.0); HEMATOCRIT 42.3 % (35.0-46.0); HEMO FLAGS DIFF FINAL; LYMPH % 35.2 % (9.0-44.0); LYMPHOCYTE # 2.5 TH/MM3 (1.0-4.8); MEAN CORPUSCULAR HEMOGLOBIN 29.9 PG (27.0-34.0); MEAN CORPUSCULAR HGB CONC 32.8 % (32.0-36.0); MONO % 9.6 % (0.0-8.0); PLATELET COUNT 110 TH/MM3 (150-450); RED BLOOD COUNT 4.65 MIL/MM3 (4.00-5.30); WHITE BLOOD COUNT 7.2 TH/MM3 (4.0-11.0)
[2017-04-26 05:46] LABS: ALT (GPT) 34 U/L (10-53); ANION GAP 7 MEQ/L (5-15); AST (GOT) 27 U/L (15-37); BICARBONATE 25.6 MEQ/L (21.0-32.0); BLOOD UREA NITROGEN 13 MG/DL (7-18); CHLORIDE 108 MEQ/L (98-107); GLOMERULAR FILTRATION RATE 89 ML/MIN (>89); POTASSIUM 4.5 MEQ/L (3.5-5.1); SODIUM (NA) 141 MEQ/L (136-145)
[2017-04-26 05:48] LABS: ALKALINE PHOSPHATASE 92 U/L (45-117); TOTAL BILIRUBIN ADULT 0.4 MG/DL (0.2-1.0)
--- NOTE | 2017-04-26 05:55 | PD ---
HPI Chief Complaint: Fall Time Seen by Provider: 05:06 Travel History International Travel<30 days: No Contact w/Intl Traveler<30days: No Traveled to known affect area: No History of Present Illness HPI Patient is a nonverbal 71-year-old lives in a correction apparently today there was an x-ray done questionable fall and at 4 AM the correction sent the patient to the ER because there was a question of a hip fracture on the x-ray patient is nonverbal does not give pain report does not have a pain reaction with motion of her legs blood is sent urine is sent vitals are normal PFSH Past Medical History Anxiety: Yes Depression: Yes High Cholesterol: Yes Congestive Heart Failure: Yes Social History Alcohol Use: No (UNABLE TO ASSESS ) Tobacco Use: No (UNABLE TO ASSESS ) Substance Use: No (UNABLE TO ASSESS ) Allergies-Medications (Allergen,Severity, Reaction): Coded Allergies: No Known Allergies (Unverified Allergy, Unknown, 04/26/17) Reported Meds & Prescriptions Reported Meds & Active Scripts Active Percocet (Oxycodone-Acetaminophen) 5-325 mg Tab 1 Tab PO Q4H PRN Reported Tubersol (Tuberculin Ppd) 5 Unit/0.1 Ml Syringe 0.1 Ml I-DERMAL .ONCE PRN Cetirizine (Cetirizine HCl) 10 Mg Tab 10 Mg PO DAILY Zestril (Lisinopril) 5 Mg Tab 5 Mg PO DAILY Triderm Topical (Triamcinolone Topical) 0.1 % Cream 1 Applic TOPICAL BID Thera-M (Multiple Vitamins W/ Minerals) 1 Tab 1 Tab PO DAILY Seroquel XR (Quetiapine Fumarate) 50 Mg Tab 75 Mg PO HS Mirtazapine 15 Mg Tab 15 Mg PO HS Milk of Magnesia Liq (Magnesium Hydroxide) 400 Mg/5 Ml Susp 30 Ml PO DAILY PRN Enema 7-19 gm/118Ml (Sodium Phosphates) 1 Mala Mala 118 Ml IN DAILY PRN Dulcolax Supp (Bisacodyl) 10 Mg Supp 10 Mg RECTAL DAILY PRN Atorvastatin (Atorvastatin Calcium) 10 Mg Tab 10 Mg PO HS Mapap (Acetaminophen) 325 Mg Tab 650 Mg PO Q4HR PRN Review of Systems ROS Limitations: Altered Mental Status, Poor Historian, Other: (severe dementia ) HENT: Positive: Earache Physical Exam Narrative GENERAL: Patient is awake alert however she is not oriented to person place or time severe dementia SKIN: Warm and dry. Pale HEAD: Atraumatic. Normocephalic. EYES: Pupils equal and round. No scleral icterus. No injection or drainage. ENT: No nasal bleeding or discharge. Mucous membranes pink and moist. NECK: Trachea midline. No JVD. CARDIOVASCULAR: Regular rate and rhythm. RESPIRATORY: No accessory muscle use. Clear to auscultation. Breath sounds equal bilaterally. GASTROINTESTINAL: Abdomen soft, non-tender, nondistended. Hepatic and splenic margins not palpable. MUSCULOSKELETAL: Extremities are both contracted her knees are to the ceiling her feet are on the bed and she sits this way all the time it is hard to assess whether she has pain with internal rotation of the femoral heads she grimaces with every touch of her body in any part CAT scan is done to assess if there is a fracture of the femoral heads... NEUROLOGICAL: Awake and alert. Advanced dementia. PSYCHIATRIC: Advanced dementia and nonverbal Data Data Last Documented VS Vital Signs Date Time Temp Pulse Resp B/P (MAP) Pulse Ox O2 Delivery O2 Flow Rate FiO2 04/26/17 07:04 71 17 117/57 (77) 98 Room Air 04/26/17 04:57 97.6 Orders Orders Complete Blood Count With Diff (04/26/17 05:09) Comprehensive Metabolic Panel (04/26/17 05:09) Urinalysis - C+S If Indicated (04/26/17 05:09) Urinary Catheter Insert/Apply (04/26/17 05:37) Restraints Non-Violent TAVARES.Q3H (04/26/17 05:37) Urine Culture (04/26/17 05:16) Vancomycin Inj (Vancomycin Inj) (04/26/17 06:15) Ct Abd/Pel W/O Iv Contrast (04/26/17 ) Admit To Inpatient (04/26/17 ) Vital Signs (Adult) Q4H (04/26/17 06:57) Activity Oob With Assistance (04/26/17 06:57) Assistant Teaching Professor / Telemetry .CONTINUOUS (04/26/17 06:57) Diet Npo (04/26/17 Breakfast) Sodium Chloride 0.9% Flush (Ns Flush) (04/26/17 07:00) Sodium Chloride 0.9% Flush (Ns Flush) (04/26/17 09:00) Ondansetron Inj (Zofran Inj) (04/26/17 07:00) Basic Metabolic Panel (Bmp) (04/27/17 06:00) Complete Blood Count With Diff (04/27/17 06:00) Case Management Consult (04/26/17 06:57) Naloxone Inj (Narcan Inj) (04/26/17 07:00) Inpatient Certification (04/26/17 ) Morphine Inj (Morphine Inj) (04/26/17 07:15) Consult Orthopedic (04/26/17 ) (Hub Use Only)Inp Phy Cons/Ref (04/26/17 ) Ciprofloxacin 400 Mg Premix (Cipro 400 M (04/26/17 09:00) Labs Laboratory Tests Test 04/26/17 05:16 04/26/17 05:18 Urine Color YELLOW Urine Turbidity CLOUDY Urine pH 6.0 Urine Specific [place] 1.025 Urine Protein 100 mg/dL Urine Glucose (UA) NEG mg/dL Urine Ketones NEG mg/dL Urine Occult Blood MOD Urine Nitrite POS Urine Bilirubin NEG Urine Urobilinogen LESS THAN 2.0 MG/DL Urine Leukocyte Esterase LARGE Urine RBC 42 /hpf Urine WBC /hpf Urine WBC Clumps MANY Urine Renal Epithelial Cells 42 /hpf Urine Bacteria MOD /hpf Urine Mucus FEW /lpf Microscopic Urinalysis Comment CULTURE INDICATED White Blood Count 7.2 TH/MM3 Red Blood Count 4.65 MIL/MM3 Hemoglobin 13.9 GM/DL Hematocrit 42.3 % Mean Corpuscular Volume 91.0 FL Mean Corpuscular Hemoglobin 29.9 PG Mean Corpuscular Hemoglobin Concent 32.8 % Red Cell Distribution Width 14.0 % Platelet Count 110 TH/MM3 Mean Platelet Volume 9.2 FL Neutrophils (%) (Auto) 47.0 % Lymphocytes (%) (Auto) 35.2 % Monocytes (%) (Auto) 9.6 % Eosinophils (%) (Auto) 7.9 % Basophils (%) (Auto) 0.3 % Neutrophils # (Auto) 3.4 TH/MM3 Lymphocytes # (Auto) 2.5 TH/MM3 Monocytes # (Auto) 0.7 TH/MM3 Eosinophils # (Auto) 0.6 TH/MM3 Basophils # (Auto) 0.0 TH/MM3 CBC Comment DIFF FINAL Differential Comment Blood Urea Nitrogen 13 MG/DL Creatinine 0.66 MG/DL Random Glucose 68 MG/DL Total Protein 6.8 GM/DL Albumin 2.9 GM/DL Calcium Level 8.4 MG/DL Alkaline Phosphatase 92 U/L Aspartate Amino Transf (AST/SGOT) 27 U/L Alanine Aminotransferase (ALT/SGPT) 34 U/L Total Bilirubin 0.4 MG/DL Sodium Level 141 MEQ/L Potassium Level 4.5 MEQ/L Chloride Level 108 MEQ/L Carbon Dioxide Level 25.6 MEQ/L Anion Gap 7 MEQ/L Estimat Glomerular Filtration Rate 89 ML/MIN MDM Medical Decision Making Medical Screen Exam Complete: Yes Emergency Medical Condition: Yes Medical Record Reviewed: Yes Differential Diagnosis UTI versus occult hip fracture versus muscle strain versus contusion Narrative Course Patient's labs are sent her urine is sent for urine is very positive for a UTI she is given vancomycin and meropenem and I admit her CAT scan is finally obtained and she does have a nondisplaced linear fracture through her femoral neck orthopedics is called she is admitted to Dr. Du medical floor with orthopedic consult Scripts Oxycodone-Acetaminophen (Percocet) 5-325 mg Tab 1 TAB PO Q4H Y for PAIN, #60 TAB 0 Refills Prov: Tavon Laureano Jr., MD 04/26/17 Александр Gallardo MD Apr 26, 2017 05:55
[2017-04-26] MEDS ORDERED: MEROPENEM 1000 MG VIAL IV ONE (06:15)
[2017-04-26] MEDS ORDERED: VANCOMYCIN INJ 1,000 MG in SODIUM CHLOR 0.9% 250 ML INJ 250 ML IV ONE (06:15)
--- NOTE | 2017-04-26 06:44 | RADRPT ---
EXAM DATE/TIME: 04/26/2017 06:22 [facility] COMPARISON: No previous studies available for comparison. INDICATIONS : Trauma, fall. Lower abdomen and bilateral hip pain. ORAL CONTRAST: No oral contrast ingested. RADIATION DOSE: 11.08 CTDIvol (mGy) MEDICAL HISTORY : Congestive heart failure. Hypertension. Alzheimers. SURGICAL HISTORY : None. ENCOUNTER: Initial ACUITY: 1 day PAIN SCALE: 7/10 LOCATION: Bilateral lower quadrant TECHNIQUE: Volumetric scanning of the abdomen and pelvis was performed. Using automated exposure control and ad justment of the mA and/or kV according to patient size, radiation dose was kept as low as reasonably achievable to obtain optimal diagnostic quality images. DICOM format image data is available electro nically for review and comparison. FINDINGS: There is subsegmental atelectasis in the both bases. The liver and spleen are normal in size and no focal defects are identified. The gallbladder is absent. The pancreas demonstrates normal contour wit hout evidence of mass or ductal dilatation. The adrenal glands and kidneys appear normal bilaterally. No hydronephrosis or mass lesions are identified. Examination of the pelvis demonstrates no evidence of free fluid or pelvic mass. No abnormally enlarg ed inguinal or retroperitoneal lymph nodes are present. A Masterson catheter is present within the bladde r which does not allow for evaluation.There is a large amount of fecal material throughout the colon consistent with constipation. Fecal impaction is present within the rectum. There is a transcervical fracture left femoral neck. Femoral head is not dislocated CONCLUSION: 1. No evidence of acute abdominal or pelvic process. No masses are identified. 2. Fecal impaction 3. Left femoral neck fracture Felix Ackerman MD on April 26, 2017 at 6:39 Board Certified Radiologist. This report was verified electronically.
[2017-04-26] MEDS ORDERED: SODIUM CHLORIDE 0.9% FLUSH 10 ML FLUSH IV FLUSH PRN (07:00)
[2017-04-26] MEDS ORDERED: ONDANSETRON HCL 4 MG/2 ML VIAL IVP PRN (07:00)
[2017-04-26] MEDS ORDERED: NALOXONE HCL 0.4 MG/ML AMP IV PUSH PRN (07:00)
[2017-04-26] MEDS ORDERED: MORPHINE SULFATE 2 MG/ML INJ IV PUSH PRN (07:15)
[2017-04-26] MEDS ORDERED: ceFAZolin 2 GM PREMIX 50 ML IV SCH (09:45)
[2017-04-26] MEDS: CIPROFLOXACIN 400 MG PREMIX 200 ML IV SCH ×2 (09:49→20:23)
[2017-04-26] MEDS: SODIUM CHLORIDE 0.9% FLUSH 10 ML FLUSH IV FLUSH SCH ×2 (09:50→20:23)
--- NOTE | 2017-04-26 13:43 | HHI.HP ---
[facility] Primary Care Physician Bandar Andrews M.D. Admission Diagnosis Diagnoses: Chief Complaint: Fall Travel History International Travel<30 Days: No Contact w/Intl Traveler <30 Da: No Traveled to Known Affected Are: No History of Present Illness This is a 71-year-old female who has severe dementia and on last admission a subdural hematoma who [facility] with a x-ray suggesting a hip fracture done due to questionable fall. Patient is nonverbal information obtained from medical records and from patient's ED nurse. Medical records reviewed from last admission in which patient was admitted due to subdural hematoma. At baseline patient is nonverbal, mumbles words and does not mobilize. During my interview with the patient and she does mumble words. She is restraints because per nurse she was digging into her rectum. Per patient's nurse she also had multiple bowel movements she was in the ED. Unable to obtain any review of system due to patient being a poor historian and mumbling words. Past Family Social History Past Medical History Subdural hematoma, hypertension, hyperlipidemia, advanced dementia, schizophrenia, chronic constipation Past Surgical History None noted in the EMR system. Reported Medications Reported Meds & Active Scripts Active Reported Tubersol (Tuberculin Ppd) 5 Unit/0.1 Ml Syringe 0.1 Ml I-DERMAL .ONCE PRN Cetirizine (Cetirizine HCl) 10 Mg Tab 10 Mg PO DAILY Zestril (Lisinopril) 5 Mg Tab 5 Mg PO DAILY Triderm Topical (Triamcinolone Topical) 0.1 % Cream 1 Applic TOPICAL BID Thera-M (Multiple Vitamins W/ Minerals) 1 Tab 1 Tab PO DAILY Seroquel XR (Quetiapine Fumarate) 50 Mg Tab 75 Mg PO HS Mirtazapine 15 Mg Tab 15 Mg PO HS Milk of Magnesia Liq (Magnesium Hydroxide) 400 Mg/5 Ml Susp 30 Ml PO DAILY PRN Enema 7-19 gm/118Ml (Sodium Phosphates) 1 Mala Mala 118 Ml [place] DAILY PRN Dulcolax Supp (Bisacodyl) 10 Mg Supp 10 Mg RECTAL DAILY PRN Atorvastatin (Atorvastatin Calcium) 10 Mg Tab 10 Mg PO HS Mapap (Acetaminophen) 325 Mg Tab 650 Mg PO Q4HR PRN Allergies: Coded Allergies: No Known Allergies (Unverified Allergy, Unknown, 04/26/17) Active Ordered Medications Current Medications Vancomycin HCl 1000 mg/Sodium Chloride 250 ml @ 250 mls/hr ONCE ONCE IV Last administered on 04/26/17 06:40; Start 04/26/17 at 06:15; Stop 04/26/17 at 07:14 ; Status DC Meropenem (Merrem Inj) 500 mg ONCE ONCE IV ; Start 04/26/17 at 06:15; Stop 04/26/17 at 06:16; Status Cancel Sodium Chloride (NS Flush) 2 ml UNSCH PRN IV FLUSH FLUSH AFTER USING IV ACCESS ; Start 04/26/17 at 07:00 Sodium Chloride (NS Flush) 2 ml BID IV FLUSH Last administered on 04/26/17 09: 50; Start 04/26/17 at 09:00 Ondansetron HCl (Zofran Inj) 4 mg Q6H PRN IVP NAUSEA OR VOMITING; Start at 07:00 Naloxone HCl (Narcan Inj) 0.4 mg UNSCH PRN IV PUSH SEE LABEL COMMENTS; Start 04/26/17 at 07:00 Ciprofloxacin/ Dextrose 200 ml @ 200 mls/hr Q12H IV Last administered on 09:49; Start 04/26/17 at 09:00 Morphine Sulfate (Morphine Inj) 2 mg Q3H PRN IV PUSH pain >5; Start 04/26/17 at 07:15 Cefazolin Sodium/ Dextrose 50 ml @ 150 mls/hr BILLET INSPECTOR IV ; Start 04/26/17 at 09:45; Stop 04/30/17 at 09:44 Family History EMR system reviewed none noted. Patient is a poor historian due to advanced dementia. Social History Patient resides in jail. Physical Exam Vital Signs Vital Signs Date Time Temp Pulse Resp B/P (MAP) Pulse Ox O2 Delivery O2 Flow Rate FiO2 04/26/17 07:04 71 17 117/57 (77) 98 Room Air 04/26/17 04:57 97.6 75 16 114/60 (78) 96 Room Air 04/26/17 04:54 97.8 Physical Exam GENERAL: This is a thin disheveled female in no acute distress. SKIN: No rashes, ecchymoses or lesions. Cool and dry. HEAD: Atraumatic. Normocephalic. No temporal or scalp tenderness. EYES: Pupils equal round and reactive. Extraocular motions intact. No scleral icterus. No injection or drainage. ENT: Nose without bleeding, purulent drainage or septal hematoma. Throat without erythema, tonsillar hypertrophy or exudate. Uvula midline. Airway patent. NECK: Trachea midline. No JVD or lymphadenopathy. Supple, nontender, no meningeal signs. CARDIOVASCULAR: Regular rate and rhythm without murmurs, gallops, or rubs. RESPIRATORY: Clear to auscultation. Breath sounds equal bilaterally. No wheezes , rales, or rhonchi. GASTROINTESTINAL: Abdomen soft, non-tender, nondistended. No hepato-splenomegaly , or palpable masses. No guarding. MUSCULOSKELETAL: No lower extremity edema. NEUROLOGICAL: Patient mumbles words but does not follow any commands. Grossly moves her extremities. Laboratory Laboratory Tests Test 04/26/17 05:16 04/26/17 05:18 Urine Color YELLOW Urine Turbidity CLOUDY Urine pH 6.0 Urine Specific [place] 1.025 Urine Protein 100 Urine Glucose (UA) NEG Urine Ketones NEG Urine Occult Blood MOD Urine Nitrite POS Urine Bilirubin NEG Urine Urobilinogen LESS THAN 2.0 Urine Leukocyte Esterase LARGE Urine RBC 42 Urine WBC Urine WBC Clumps MANY Urine Renal Epithelial Cells 42 Urine Bacteria MOD Urine Mucus FEW Microscopic Urinalysis Comment CULTURE INDICATED White Blood Count 7.2 Red Blood Count 4.65 Hemoglobin 13.9 Hematocrit 42.3 Mean Corpuscular Volume 91.0 Mean Corpuscular Hemoglobin 29.9 Mean Corpuscular Hemoglobin Concent 32.8 Red Cell Distribution Width 14.0 Platelet Count 110 Mean Platelet Volume 9.2 Neutrophils (%) (Auto) 47.0 Lymphocytes (%) (Auto) 35.2 Monocytes (%) (Auto) 9.6 Eosinophils (%) (Auto) 7.9 Basophils (%) (Auto) 0.3 Neutrophils # (Auto) 3.4 Lymphocytes # (Auto) 2.5 Monocytes # (Auto) 0.7 Eosinophils # (Auto) 0.6 Basophils # (Auto) 0.0 CBC Comment DIFF FINAL Differential Comment Blood Urea Nitrogen 13 Creatinine 0.66 Random Glucose 68 Total Protein 6.8 Albumin 2.9 Calcium Level 8.4 Alkaline Phosphatase 92 Aspartate Amino Transf (AST/SGOT) 27 Alanine Aminotransferase (ALT/SGPT) 34 Total Bilirubin 0.4 Sodium Level 141 Potassium Level 4.5 Chloride Level 108 Carbon Dioxide Level 25.6 Anion Gap 7 Estimat Glomerular Filtration Rate 89 Date/Time Source Procedure Growth Status 04/26/17 05:16 Urine Clean Catch Urine Culture Pending Received Result Diagram: 04/26/17 0518 04/26/17 0518 Imaging Last Impressions Abdomen/Pelvis CT 04/26/17 0000 Signed Impressions: Service Date/Time: , April 26, 2017 06:22 - CONCLUSION: 1. No evidence of acute abdominal or pelvic process. No masses are identified. 2. Fecal impaction 3. Left femoral neck fracture MD Nehemias Jacobo VTE Risk Assessment Nehemias VTE Risk Assessment: Mod/High Risk (score >= 2) Caprini Risk Assessment Model Point Value = 1 Point Value = 2 Point Value = 3 Point Value = 5 Age 41-60 Minor surgery BMI > 25 kg/m2 Swollen legs Varicose veins or History of unexplained or recurrent spontaneous Oral contraceptives or hormone replacement Sepsis (< 1 month) Serious lung disease, including pneumonia (< 1 month) Abnormal pulmonary function Acute myocardial infarction Congestive heart failure (< 1 month) History of inflammatory bowel disease Medical patient at bed rest Age 61-74 Arthroscopic surgery Major open surgery (> 45 min) Laparoscopic surgery (> 45 min) Malignancy Confined to bed (> 72 hours) Immobilizing plaster cast Central venous access Age >= 75 History of VTE Family history of VTE Factor V Leiden Prothrombin [id number] Lupus anticoagulant Anticardiolipin antibodies Elevated serum homocysteine Heparin-induced thrombocytopenia Other congenital or acquired thrombophilia Stroke (< 1 month) Elective arthroplasty Hip, pelvis, or leg fracture Acute spinal cord injury (< 1 month) Prophylaxis Regimen Total Risk Factor Score Risk Level Prophylaxis Regimen 0-1 Low Early ambulation 2 Moderate Order ONE of the following: *Sequential Compression Device (SCD) *Heparin 5000 units SQ BID 3-4 Higher Order ONE of the following medications: *Heparin 5000 units SQ TID *Enoxaparin/Lovenox 40 mg SQ daily (WT < 150 kg, CrCl > 30 mL/min) *Enoxaparin/Lovenox 30 mg SQ daily (WT < 150 kg, CrCl > 10-29 mL/min) *Enoxaparin/Lovenox 30 mg SQ BID (WT < 150 kg, CrCl > 30 mL/min) AND/OR *Sequential Compression Device (SCD) 5 or more Highest Order ONE of the following medications: *Heparin 5000 units SQ TID (Preferred with Epidurals) *Enoxaparin/Lovenox 40 mg SQ daily (WT < 150 kg, CrCl > 30 mL/min) *Enoxaparin/Lovenox 30 mg SQ daily (WT < 150 kg, CrCl > 10-29 mL/min) *Enoxaparin/Lovenox 30 mg SQ BID (WT < 150 kg, CrCl > 30 mL/min) AND *Sequential Compression Device (SCD) Assessment and Plan Assessment and Plan 71-year-old female recent subdural hematoma and advanced dementia who presented with a questionable fall Left femoral neck fracture -Patient is nonverbal and has severe dementia. -CT scan show fecal impaction and left femoral neck fracture. -I'm not sure if patient would have any benefits of surgery since at baseline she does not mobilize herself. -Orthopedics already consulted. Chronic consultation and fecal impaction -Patient multiple bowel movements in the ED. Advanced dementia -Patient resides in a jail. -Poor prognosis. hx Subdural hematoma, hypertension, hyperlipidemia, advanced dementia, schizophrenia, chronic constipation -Resume home medication. DVT prophylaxis -SCDs. Patient had recent subdural hematoma chemoprophylaxis contraindicated. Discussed Condition With Patient has advanced dementia and is not very mobile. I'm not sure what benefit she will have from surgery. Physician Certification 2 Midnight Certification Type: Admission for Inpatient Services Order for Inpatient Services The services are ordered in accordance with Medicare regulations or non- Medicare payer requirements, as applicable. In the case of services not specified as inpatient-only, they are appropriately provided as inpatient services in accordance with the 2-midnight benchmark. Estimated LOS (days): 3 3 days is the estimated time the patient will need to remain in the hospital, assuming treatment plan goals are met and no additional complications. Post-Hospital Plan: [facility] Carmencita Hsieh MD Apr 26, 2017 13:43
[2017-04-26] MEDS ORDERED: MAGNESIUM HYDROXIDE SUSP 30 ML CUP PO PRN (14:00)
[2017-04-26] MEDS ORDERED: BISACODYL 10 MG SUPP RECTAL PRN (14:00)
[2017-04-26] MEDS ORDERED: ACETAMINOPHEN 325 MG TAB PO PRN (14:00)
[2017-04-26] MEDS ORDERED: SODIUM CHLORID 0.9% 500 ML IV PRN (14:45)
[2017-04-26] MEDS ORDERED: POVIDONE IODINE 5% (ANTISEPSIS KIT) 4 APPLICATIONS EACH NARE PRN (14:45)
[2017-04-26] MEDS ORDERED: LACTATED RINGER'S 1000 ML IV PRN (14:45)
[2017-04-26] MEDS ORDERED: CHLORHEXIDINE GLUCONATE 2 % 1 PACK (2 CLOTHS) TOPICAL PRN (14:45)
[2017-04-26] MEDS ORDERED: METOPROLOL TARTRATE 25 MG TAB PO PRN (14:45)
--- NOTE | 2017-04-26 16:53 | PD.CONS ---
cc: Tavon Laureano Jr., MD HPI Service Orthopedic Surgeons Consult Requested By Primary Care Physician Bandar Andrews M.D. Admission Diagnosis Diagnoses: Chief Complaint: left hip fracture History of Present Illness 71-year-old female with severe dementia presented with subdural hematoma in left hip pain after questionable fall. Patient is a poor historian. Medical records reviewed from last admission in which patient was admitted due to subdural hematoma. At baseline patient is nonverbal, mumbles words and does not mobilize. She is restraints. Imaging reveal a valgus impacted femoral neck fracture. ROS: Unable to obtain. Past Family Social History Past Medical History Subdural hematoma, hypertension, hyperlipidemia, advanced dementia, schizophrenia, chronic constipation Past Surgical History None noted in the EMR system. Reported Medications Reported Meds & Active Scripts Active Reported Tubersol (Tuberculin Ppd) 5 Unit/0.1 Ml Syringe 0.1 Ml I-DERMAL .ONCE PRN Cetirizine (Cetirizine HCl) 10 Mg Tab 10 Mg PO DAILY Zestril (Lisinopril) 5 Mg Tab 5 Mg PO DAILY Triderm Topical (Triamcinolone Topical) 0.1 % Cream 1 Applic TOPICAL BID Thera-M (Multiple Vitamins W/ Minerals) 1 Tab 1 Tab PO DAILY Seroquel XR (Quetiapine Fumarate) 50 Mg Tab 75 Mg PO HS Mirtazapine 15 Mg Tab 15 Mg PO HS Milk of Magnesia Liq (Magnesium Hydroxide) 400 Mg/5 Ml Susp 30 Ml PO DAILY PRN Enema 7-19 gm/118Ml (Sodium Phosphates) 1 Mala Mala 118 Ml [place] DAILY PRN Dulcolax Supp (Bisacodyl) 10 Mg Supp 10 Mg RECTAL DAILY PRN Atorvastatin (Atorvastatin Calcium) 10 Mg Tab 10 Mg PO HS Mapap (Acetaminophen) 325 Mg Tab 650 Mg PO Q4HR PRN Allergies: Coded Allergies: No Known Allergies (Unverified Allergy, Unknown, 04/26/17) Active Ordered Medications Current Medications Vancomycin HCl 1000 mg/Sodium Chloride 250 ml @ 250 mls/hr ONCE ONCE IV Last administered on 04/26/17t 06:40; Start 04/26/17 at 06:15; Stop 04/26/17 at 07:14 ; Status DC Meropenem (Merrem Inj) 500 mg ONCE ONCE IV ; Start 04/26/17 at 06:15; Stop 04/26/17 at 06:16; Status Cancel Sodium Chloride (NS Flush) 2 ml UNSCH PRN IV FLUSH FLUSH AFTER USING IV ACCESS ; Start 04/26/17 at 07:00 Sodium Chloride (NS Flush) 2 ml BID IV FLUSH Last administered on 04/26/17 09: 50; Start 04/26/17 at 09:00 Ondansetron HCl (Zofran Inj) 4 mg Q6H PRN IVP NAUSEA OR VOMITING; Start at 07:00 Naloxone HCl (Narcan Inj) 0.4 mg UNSCH PRN IV PUSH SEE LABEL COMMENTS; Start 04/26/17 at 07:00 Ciprofloxacin/ Dextrose 200 ml @ 200 mls/hr Q12H IV Last administered on 09:49; Start 04/26/17 at 09:00 Morphine Sulfate (Morphine Inj) 2 mg Q3H PRN IV PUSH pain >5; Start 04/26/17 at 07:15 Cefazolin Sodium/ Dextrose 50 ml @ 150 mls/hr ACTUARIAL MATHEMATICIAN IV ; Start 04/26/17 at 09:45; Stop 04/30/17 at 09:44 Family History EMR system reviewed none noted. Patient is a poor historian due to advanced dementia. Social History Patient resides in half-way Past Family Social History Past Medical History Subdural hematoma, hypertension, hyperlipidemia, advanced dementia, schizophrenia, chronic constipation Past Surgical History None noted in the EMR system. Allergies: Coded Allergies: No Known Allergies (Unverified Allergy, Unknown, 04/26/17) Active Ordered Medications Current Medications Medications (Trade) Dose Ordered Sig/Primo Route Start Time Stop Time Status Last Admin (NS Flush) 2 ml UNSCH PRN IV FLUSH 04/26/17 07:00 (NS Flush) 2 ml BID IV FLUSH 04/26/17 09:00 04/26/17 09:50 (Zofran Inj) 4 mg Q6H PRN IVP 04/26/17 07:00 (Narcan Inj) 0.4 mg UNSCH PRN IV PUSH 04/26/17 07:00 Ciprofloxacin/ Dextrose 200 ml @ 200 mls/hr Q12H IV 04/26/17 09:00 04/26/17 09:49 (Morphine Inj) 2 mg Q3H PRN IV PUSH 04/26/17 07:15 Cefazolin Sodium/ Dextrose 50 ml @ 150 mls/hr ACTUARIAL MATHEMATICIAN IV 04/26/17 09:45 04/30/17 09:44 (Tylenol) 650 mg Q4H PRN PO 04/26/17 14:00 (Lipitor) 10 mg HS PO 04/26/17 21:00 (Dulcolax Supp) 10 mg DAILY PRN RECTAL 04/26/17 14:00 (ZyrTEC) 10 mg DAILY PO 04/27/17 09:00 (Prinivil) 5 mg DAILY PO 04/27/17 09:00 (Milk Of Magnesia Liq) 30 ml DAILY PRN PO 04/26/17 14:00 (Remeron) 15 mg HS PO 04/26/17 21:00 (Theragran M Tab) 1 tab DAILY PO 04/27/17 09:00 Lactated Ringer's 1,000 ml @ 30 mls/hr Q24H PRN IV 04/26/17 14:45 04/29/17 14:44 Sodium Chloride 500 ml @ 30 mls/hr [id number] PRN IV 04/26/17 14:45 04/29/17 14:44 (Lopressor) 25 mg ACTUARIAL MATHEMATICIAN PRN PO 04/26/17 14:45 04/29/17 14:44 (Betadine 5% Antisepsis Kit) 1 applic ACTUARIAL MATHEMATICIAN PRN EACH NARE 04/26/17 14:45 04/29/17 14:44 (Chlorhexidine 2% Cloth) 3 pack ACTUARIAL MATHEMATICIAN PRN TOPICAL 04/26/17 14:45 04/29/17 14:44 Reported Meds & Active Scripts Active Reported Tubersol (Tuberculin Ppd) 5 Unit/0.1 Ml Syringe 0.1 Ml I-DERMAL .ONCE PRN Cetirizine (Cetirizine HCl) 10 Mg Tab 10 Mg PO DAILY Zestril (Lisinopril) 5 Mg Tab 5 Mg PO DAILY Triderm Topical (Triamcinolone Topical) 0.1 % Cream 1 Applic TOPICAL BID Thera-M (Multiple Vitamins W/ Minerals) 1 Tab 1 Tab PO DAILY Seroquel XR (Quetiapine Fumarate) 50 Mg Tab 75 Mg PO HS Mirtazapine 15 Mg Tab 15 Mg PO HS Milk of [place] Liq (Magnesium Hydroxide) 400 Mg/5 Ml Susp 30 Ml PO DAILY PRN Enema 7-19 gm/118Ml (Sodium Phosphates) 1 Mala Mala 118 Ml [place] DAILY PRN Dulcolax Supp (Bisacodyl) 10 Mg Supp 10 Mg RECTAL DAILY PRN Atorvastatin (Atorvastatin Calcium) 10 Mg Tab 10 Mg PO HS Mapap (Acetaminophen) 325 Mg Tab 650 Mg PO Q4HR PRN Family History EMR system reviewed none noted. Patient is a poor historian due to advanced dementia. Social History Patient resides in half-way. Physical Exam Vital Signs Vital Signs Date Time Temp Pulse Resp B/P (MAP) Pulse Ox O2 Delivery O2 Flow Rate FiO2 04/26/17 15:52 98.6 73 16 133/62 (85) 94 04/26/17 15:40 98.0 76 18 119/67 (84) 97 04/26/17 14:32 98.5 75 18 111/74 (86) 98 04/26/17 07:04 71 17 117/57 (77) 98 Room Air 04/26/17 04:57 97.6 75 16 114/60 (78) 96 Room Air 04/26/17 04:54 97.8 Physical Exam Demented Head: NC/AT Neck: No pain with any range of motion and neck. Pulmonary: Normal respiratory effort. Bilateral upper extremity: No deformities. 2+ radial artery pulses. Good cap refill. RIGHT lower extremity: No deformity, + PT/DP pulses. Supple compartments. LEFT lower extremity: No deformity, positive logroll and painful at that the range of motion. + PT/DP pulses. Supple compartments. Laboratory Laboratory Tests Test 04/26/17 05:16 04/26/17 05:18 Urine Color YELLOW Urine Turbidity CLOUDY Urine pH 6.0 Urine Specific [place] 1.025 Urine Protein 100 Urine Glucose (UA) NEG Urine Ketones NEG Urine Occult Blood MOD Urine Nitrite POS Urine Bilirubin NEG Urine Urobilinogen LESS THAN 2.0 Urine Leukocyte Esterase LARGE Urine RBC 42 Urine WBC Urine WBC Clumps MANY Urine Renal Epithelial Cells 42 Urine Bacteria MOD Urine Mucus FEW Microscopic Urinalysis Comment CULTURE INDICATED White Blood Count 7.2 Red Blood Count 4.65 Hemoglobin 13.9 Hematocrit 42.3 Mean Corpuscular Volume 91.0 Mean Corpuscular Hemoglobin 29.9 Mean Corpuscular Hemoglobin Concent 32.8 Red Cell Distribution Width 14.0 Platelet Count 110 Mean Platelet Volume 9.2 Neutrophils (%) (Auto) 47.0 Lymphocytes (%) (Auto) 35.2 Monocytes (%) (Auto) 9.6 Eosinophils (%) (Auto) 7.9 Basophils (%) (Auto) 0.3 Neutrophils # (Auto) 3.4 Lymphocytes # (Auto) 2.5 Monocytes # (Auto) 0.7 Eosinophils # (Auto) 0.6 Basophils # (Auto) 0.0 CBC Comment DIFF FINAL Differential Comment Blood Urea Nitrogen 13 Creatinine 0.66 Random Glucose 68 Total Protein 6.8 Albumin 2.9 Calcium Level 8.4 Alkaline Phosphatase 92 Aspartate Amino Transf (AST/SGOT) 27 Alanine Aminotransferase (ALT/SGPT) 34 Total Bilirubin 0.4 Sodium Level 141 Potassium Level 4.5 Chloride Level 108 Carbon Dioxide Level 25.6 Anion Gap 7 Estimat Glomerular Filtration Rate 89 Date/Time Source Procedure Growth Status 04/26/17 05:16 Urine Clean Catch Urine Culture Pending Received Result Diagram: 04/26/17 0518 04/26/17 0518 Imaging Last 72 hours Impressions Abdomen/Pelvis CT 04/26/17 0000 Signed Impressions: Service Date/Time: April 06:22 - CONCLUSION: 1. No evidence of acute abdominal or pelvic process. No masses are identified. 2. Fecal impaction 3. Left femoral neck fracture Felix Ackerman MD Assessment & Plan Assessment and Plan 71-year-old female with severe dementia presented to emergency department after unwitnessed fall complaining of left hip pain. The patient is a poor historian. This consultation was based on chart review. I will call and discuss treatment plan with the patient's daughter. CT examination reveal a left femoral neck fracture. I recommend percutaneous screw fixation to allow for WB and transfers. plan for OR. Tavon Goldstein Jr., MD Apr 26, 2017 16:53
[2017-04-26] MEDS ORDERED: PERC5TAB12 PO (18:16)
[2017-04-26] MEDS: SODIUM CHLOR 0.9% 1000 ML INJ 1,000 ML IV SCH (20:15)
[2017-04-26] MEDS: MIRTAZAPINE 15 MG TAB PO SCH (20:20)
[2017-04-26] MEDS: ATORVASTATIN 10 MG TAB PO SCH (20:20)
[2017-04-26] MEDS ORDERED: QUETIAPINE 75 MG PO SCH (21:00)
[2017-04-27] VITALS (7 sets, daily range): BP systolic 127–153; BP diastolic 75–89; PULSE 69–92; RESP 16–20; TEMP 97.1–98.8; O2SAT 95–98
[2017-04-27 07:02] LABS: AUTOMATED NEUTROPHIL # 5.9 TH/MM3 (1.8-7.7); BASOPHIL # 0.1 TH/MM3 (0-0.2); BASOPHIL % 0.5 % (0.0-2.0); EOSINOPHIL # 0.9 TH/MM3 (0-0.4); EOSINOPHIL % 8.8 % (0.0-4.0); HEMATOCRIT 41.2 % (35.0-46.0); HEMO FLAGS DIFF FINAL; LYMPHOCYTE # 2.3 TH/MM3 (1.0-4.8); MEAN CELL VOLUME 90.5 FL (80.0-100.0); MEAN CORPUSCULAR HEMOGLOBIN 30.2 PG (27.0-34.0); MEAN CORPUSCULAR HGB CONC 33.4 % (32.0-36.0); MONO % 10.9 % (0.0-8.0); NEUT % 57.8 % (16.0-70.0); PLATELET COUNT 321 TH/MM3 (150-450); RED BLOOD COUNT 4.55 MIL/MM3 (4.00-5.30); RED CELL DISTRIBUTION WIDTH 13.8 % (11.6-17.2); WHITE BLOOD COUNT 10.3 TH/MM3 (4.0-11.0)
[2017-04-27 07:28] LABS: BICARBONATE 23.8 MEQ/L (21.0-32.0); POTASSIUM 3.8 MEQ/L (3.5-5.1)
[2017-04-27] MEDS: CETIRIZINE HCL 10 MG TAB PO SCH (08:10)
[2017-04-27] MEDS: LISINOPRIL 5 MG TAB PO SCH (08:10)
[2017-04-27] MEDS: CIPROFLOXACIN 400 MG PREMIX 200 ML IV SCH ×2 (08:10→21:51)
[2017-04-27] MEDS: SODIUM CHLOR 0.9% 1000 ML INJ 1,000 ML IV SCH ×2 (08:22→22:22)
[2017-04-27] MEDS: SODIUM CHLORIDE 0.9% FLUSH 10 ML FLUSH IV FLUSH SCH ×2 (09:00→21:00)
[2017-04-27] MEDS ORDERED: MULTIVITAMINS/MINERALS THERAPEUTIC TAB PO SCH (09:00)
--- NOTE | 2017-04-27 11:36 | HHI.PR ---
Subjective Remarks Follow-up for hip fracture Patient continues to not follow any commands and mumbles words that makes no sense. This is her baseline. she is no agitated. no acute events overnight. Objective Vitals Vital Signs Date Time Temp Pulse Resp B/P (MAP) Pulse Ox O2 Delivery O2 Flow Rate FiO2 04/27/17 10:04 81 04/27/17 08:00 98.0 69 16 134/76 (95) 95 04/27/17 04:00 98.0 76 20 153/80 (104) 98 04/27/17 00:00 97.9 77 20 142/75 (97) 95 04/26/17 20:59 79 04/26/17 20:42 86 04/26/17 20:10 98.8 85 22 125/76 (92) 95 04/26/17 20:00 97.8 80 16 139/65 (89) 95 04/26/17 15:52 98.6 73 16 133/62 (85) 94 04/26/17 15:40 98.0 76 18 119/67 (84) 97 04/26/17 14:32 98.5 75 18 111/74 (86) 98 I/O 04/26/17 04/26/17 04/26/17 04/27/17 04/27/17 04/27/17 07:00 15:00 23:00 07:00 15:00 23:00 Intake Total 250 ml 200 ml Output Total 600 ml 675 ml Balance 250 ml -400 ml -675 ml Intake IV Total 250 ml 200 ml Output Urine Total 600 ml 675 ml # Bowel Movements 1 Result Diagram: 04/27/1746 04/27/1746 Objective Remarks GENERAL: no acute distress. NECK: Trachea midline. No JVD or lymphadenopathy. Supple, nontender, no meningeal signs. CARDIOVASCULAR: Regular rate and rhythm without murmurs, gallops, or rubs. RESPIRATORY: Clear to auscultation. Breath sounds equal bilaterally. No wheezes , rales, or rhonchi. GASTROINTESTINAL: Abdomen soft, non-tender, nondistended. No hepato-splenomegaly , or palpable masses. No guarding. MUSCULOSKELETAL: No lower extremity edema. NEUROLOGICAL: Patient mumbles words but does not follow any commands. Grossly moves her extremities. Medications and IVs Current Medications Vancomycin HCl 1000 mg/Sodium Chloride 250 ml @ 250 mls/hr ONCE ONCE IV Last administered on 04/26/17 06:40; Start 04/26/17 at 06:15; Stop 04/26/17 at 07:14 ; Status DC Meropenem (Merrem Inj) 500 mg ONCE ONCE IV ; Start 04/26/17 at 06:15; Stop 04/26/17 at 06:16; Status Cancel Sodium Chloride (NS Flush) 2 ml UNSCH PRN IV FLUSH FLUSH AFTER USING IV ACCESS ; Start 04/26/17 at 07:00 Sodium Chloride (NS Flush) 2 ml BID IV FLUSH Last administered on 04/26/17 09: 50; Start 04/26/17 at 09:00 Ondansetron HCl (Zofran Inj) 4 mg Q6H PRN IVP NAUSEA OR VOMITING; Start at 07:00 Naloxone HCl (Narcan Inj) 0.4 mg UNSCH PRN IV PUSH SEE LABEL COMMENTS; Start 04/26/17 at 07:00 Ciprofloxacin/ Dextrose 200 ml @ 200 mls/hr Q12H IV Last administered on 04/27 08:10; Start 04/26/17 at 09:00 Morphine Sulfate (Morphine Inj) 2 mg Q3H PRN IV PUSH pain >5; Start 04/26/17 at 07:15 Cefazolin Sodium/ Dextrose 50 ml @ 150 mls/hr [employer]CR[employer]E BUCKET HOOKER IV ; Start 04/26/17 at 09:45; Stop 04/30/17 at 09:44 Acetaminophen (Tylenol) 650 mg Q4H PRN PO ELEVATED TEMP; Start 04/26/17 at 14: 00 Atorvastatin Calcium (Lipitor) 10 mg HS PO Last administered on 04/26/17 20:20 ; Start 04/26/17 at 21:00 Bisacodyl (Dulcolax Supp) 10 mg DAILY PRN RECTAL IF NO BM FROM MOM; Start 04/26 at 14:00 Cetirizine HCl (ZyrTEC) 10 mg DAILY PO Last administered on 04/27/17 08:10; Start 04/27/17 at 09:00 Lisinopril (Prinivil) 5 mg DAILY PO Last administered on 04/27/17 08:10; Start 04/27/17 at 09:00 Magnesium Hydroxide (Milk Of Magnesia Liq) 30 ml DAILY PRN PO IF NO BM WITHIN 3 DAYS; Start 04/26/17 at 14:00 Mirtazapine (Remeron) 15 mg HS PO Last administered on 04/26/17 20:20; Start 04/26/17 at 21:00 Multivitamins/ Minerals Therapeutic (Theragran M Tab) 1 tab DAILY PO ; Start at 09:00 Non-Formulary Medication 75 mg HS PO ; Start 04/26/17 at 21:00; Stop 04/26/17 at 21:00; Status DC Lactated Ringer's 1,000 ml @ 30 mls/hr Q24H PRN IV SEE LABEL COMMENTS; Start 04/26/17 at 14:45; Stop 04/26/17 at 20:11; Status DC Sodium Chloride 500 ml @ 30 mls/hr [id number] PRN IV SEE LABEL COMMENTS; Start at 14:45; Stop 04/26/17 at 20:11; Status DC Metoprolol Tartrate (Lopressor) 25 mg [employer] PRN PO SEE LABEL COMMENTS; Start 04/26/17 at 14:45; Stop 04/29/17 at 14:44 Povidone Iodine (Betadine 5% Antisepsis Kit) 1 applic [employer] PRN EACH NARE SEE LABEL COMMENTS; Start 04/26/17 at 14:45; Stop 04/29/17 at 14:44 Chlorhexidine Gluconate (Chlorhexidine 2% Cloth) 3 pack [employer] PRN TOPICAL SEE LABEL COMMENTS; Start 04/26/17 at 14:45; Stop 04/29/17 at 14:44 Sodium Chloride 1,000 ml @ 75 mls/hr [id number] IV Last administered on 08:22; Start 04/26/17 at 20:15 A/P Assessment and Plan 71-year-old female recent subdural hematoma and advanced dementia who presented with a questionable fall Left femoral neck fracture -Patient is nonverbal and has severe dementia. -CT scan show fecal impaction and left femoral neck fracture. -Orthopedic consulted following. Orthopedic recommended percutaneous screw fixation to allow for WB and transfers. Patient is nothing by mouth at the moment for procedure today. Chronic consultation and fecal impaction -Patient multiple bowel movements in the ED. Advanced dementia -Patient [facility] in a prison. -Poor prognosis. hx Subdural hematoma, hypertension, hyperlipidemia, advanced dementia, schizophrenia, chronic constipation -Resume home medication. DVT prophylaxis -SCDs. Patient had recent subdural hematoma chemoprophylaxis contraindicated. Discharge Planning Patient is scheduled for surgery today. Once she is medically clear she can return to SNF. Carmencita Hsieh MD Apr 27, 2017 11:36
[2017-04-27] MEDS ORDERED: DEXAMETHASONE SOD PHOS 4 MG/ML VIAL IV ONE (12:00)
[2017-04-27] MEDS ORDERED: PHENYLEPHRINE HCL 10 MG/ML VIAL IV ONE (12:00)
[2017-04-27] MEDS ORDERED: ONDANSETRON HCL 4 MG/2 ML VIAL IV PUSH ONE (12:00)
[2017-04-27] MEDS ORDERED: LACTATED RINGER'S 1000 ML INJ 1,000 ML IV ONE (12:00)
[2017-04-27] MEDS ORDERED: PROPOFOL 200 MG/20 ML AMP IV ONE (12:00)
[2017-04-27] MEDS ORDERED: LIDOCAINE HCL 1% PF 5 ML AMPULE OTHER ONE (12:00)
[2017-04-27] MEDS ORDERED: ePHEDrine/NS 25 MG/5 ML SYR IV ONE (12:00)
[2017-04-27] MEDS ORDERED: PHENYLEPH/NS 1000 MCG/10 ML SYR IV ONE (12:00)
[2017-04-27] MEDS ORDERED: ceFAZolin INJ 1,000 MG VIAL IV ONE (12:00)
[2017-04-27] MEDS ORDERED: ACETAMINOPHEN 1000 MG/100 ML 100 ML IV ONE (15:20)
[2017-04-27] MEDS ORDERED: GENTAMICIN SULFATE 80 MG/2 ML VIAL ONE ×2 (16:26→17:25)
--- NOTE | 2017-04-27 18:07 | PD.OP ---
cc: Tavon Laureano Jr., MD Operative Report Date of Surgery: Apr 27, 2017 Preoperative Diagnosis: Left valgus impacted femoral neck fracture Postoperative Diagnosis: Same Procedure: Left hip percutaneous screw fixation Anesthesia: Gen. Surgeon: Tavon Laureano Bobbin Coil Winder(s): Hospital staff Resident Surgeon: None Operation and Findings: Implants: Synthes stainless steel cannulated screws, 6.5mm. The patient received intravenous Ancef. After the appropriate anesthesia was administered, the patient was transferred to the fracture table. The fracture was left in situ. The LEFT hip was prepped and draped in usual sterile fashion. Using fluoroscopic guidance we made 3 small percutaneous incisions on the lateral aspect of the hip. We then incised through the deep fascia as well. We placed three threaded guidewires in a triangular configuration, starting laterally with the tips of the guidewires placed within the femoral head. We confirmed that there was no intra-articular penetration of the tips of these guidewires. The lateral aspect of the guidewires were kept proximal to the lower portion of the lesser trochanter to reduce the risk of periprosthetic fracture. We measured the appropriate depth for the screws and then drilled the cortex laterally. The 3 screws were then placed within the bone. The screws purchase into the bone was considered to be excellent. We took final fluoroscopic imaging which revealed that the fracture remained good position. The hardware was in good position as well. The wounds were thoroughly irrigated and then closed with a braeden. The postoperative plan is to start 50% weightbearing. Additionally, we will initiate postoperative antibiotics for 24 hours along with DVT prophylaxis consisting of early mobilization, SCDs, compression stockings, and Lovenox POSTP-OP PLAN OF ACTIVITY Antibiotics: Ancef Antiocoagulation: Lovenox Weight bearing status: 50% WB PT/OT: OOB TID Dressing: Change daily, by RN starting postop day 2 Future procedure planned: none Dispo: expected discharge inpatient rehabilitation Tavon Laureano Jr., MD Apr 27, 2017 18:07
[2017-04-27] MEDS ORDERED: Post-op Orders (for Pharmacy) MISC XX ONE (18:15)
[2017-04-27] MEDS ORDERED: ZOLPIDEM TARTRATE 5 MG TAB PO PRN (18:15)
[2017-04-27] MEDS ORDERED: PROMETHAZINE HCL 25 MG TAB PO PRN (18:15)
[2017-04-27] MEDS ORDERED: MAGNESIUM HYDROXIDE SUSP 30 ML CUP PO PRN (18:15)
[2017-04-27] MEDS ORDERED: BISACODYL 10 MG SUPP RECTAL PRN (18:15)
[2017-04-27] MEDS ORDERED: LACTULOSE SYRUP 20 GM/30 ML CUP PO PRN (18:15)
[2017-04-27] MEDS ORDERED: ACETAMINOPHEN/HYDROcodone 325 MG/5 MG TAB PO PRN (18:15)
[2017-04-27] MEDS ORDERED: MORPHINE SULFATE 8 MG/ML INJ IV PUSH PRN (18:15)
[2017-04-27] MEDS ORDERED: SENNOSIDES 8.6 MG TAB PO PRN (18:15)
[2017-04-27] MEDS ORDERED: SODIUM CHLORIDE 0.9% FLUSH 10 ML FLUSH IV FLUSH PRN (18:15)
--- NOTE | 2017-04-27 18:20 | EKG ---
Date Performed: 04/26/2017 Time Performed: 14:44:55 PTAGE: 71 years EKG: Sinus rhythm NORMAL ECG NO PREVIOUS TRACING DOCTOR: David Couch Interpretating Date/Time 04/27/2017 18:15:28
[2017-04-27] MEDS ORDERED: *morphine SULFATE 8 MG/ML PERIprocedure ONLY ONE ×2 (18:43→19:17)
--- NOTE | 2017-04-27 18:46 | RADRPT ---
EXAM DATE/TIME: 04/27/2017 17:58 [facility] COMPARISON: No previous studies available for comparison. INDICATIONS : Screw placement left hip. MEDICAL HISTORY : Congestive heart failure. Hypertension. Alzheimers. SURGICAL HISTORY : None. ENCOUNTER: Subsequent ACUITY: 2 days PAIN SCORE: Non-responsive. LOCATION: Left Hip. FINDINGS: Two magnified C-arm spot views are centered over the hip and labeled left. 3 threaded orthopedic scre ws traverse the femoral neck in this patient with a subcapital femoral neck fracture. The screws are contained within the cortical confines of the femoral head. Relatively good alignment is seen. CONCLUSION: Limited images as detailed above. Abdullahi Huerta Jr., MD on April 27, 2017 at 18:44 Board Certified Radiologist. This report was verified electronically.
[2017-04-27] MEDS ORDERED: DO NOT ADM ANY ANTICOAGULANT DRUGS PRN (19:00)
[2017-04-27] MEDS: DOCUSATE SODIUM 50 MG/SENNA 8.6 MG TAB PO SCH (21:00)
[2017-04-27] MEDS: ATORVASTATIN 10 MG TAB PO SCH (21:00)
[2017-04-27] MEDS: MIRTAZAPINE 15 MG TAB PO SCH (21:00)
[2017-04-28] VITALS (10 sets, daily range): BP systolic 97–136; BP diastolic 55–67; PULSE 60–90; RESP 16–18; TEMP 96.2–98.2; O2SAT 95–100
[2017-04-28] MEDS: ENOXAPARIN SODIUM 30 MG/0.3 ML SYRINGE SQ SCH ×2 (06:11→17:57)
[2017-04-28] MEDS: LISINOPRIL 5 MG TAB PO SCH (08:31)
[2017-04-28] MEDS: DOCUSATE SODIUM 50 MG/SENNA 8.6 MG TAB PO SCH ×2 (08:31→20:49)
[2017-04-28] MEDS: CIPROFLOXACIN 400 MG PREMIX 200 ML IV SCH (08:31)
[2017-04-28] MEDS: CETIRIZINE HCL 10 MG TAB PO SCH (08:31)
[2017-04-28] MEDS: SODIUM CHLORIDE 0.9% FLUSH 10 ML FLUSH IV FLUSH SCH ×2 (08:35→21:00)
--- NOTE | 2017-04-28 10:52 | PD.ORT.PN ---
Subjective Subjective Remarks Patient is demented. Unable to answer questions. Bilateral wrist restraints in place. Objective Vitals Vital Signs Date Time Temp Pulse Resp B/P (MAP) Pulse Ox O2 Delivery O2 Flow Rate FiO2 04/28/17 09:58 99 Nasal Cannula 2.00 04/28/17 07:48 98.2 68 18 136/62 (86) 100 04/28/17 04:00 96.3 60 16 103/59 (74) 99 04/28/17 00:00 96.2 61 18 97/60 (72) 100 04/27/17 19:30 97.8 69 20 118/57 (77) 100 Nasal Cannula 4 04/27/17 19:30 Nasal Cannula 2.00 04/27/17 19:15 80 20 124/89 (101) 100 Nasal Cannula 4 04/27/17 19:00 68 20 119/65 (83) 93 Nasal Cannula 4 04/27/17 19:00 97.1 77 17 136/76 (96) 96 04/27/17 18:45 84 20 117/63 (81) 100 Nasal Cannula 4 04/27/17 18:30 68 20 132/60 (84) 100 Nasal Cannula 4 04/27/17 18:19 97.8 70 20 137/68 (91) 100 Nasal Cannula 4 04/27/17 16:15 98.5 84 18 127/90 (102) 95 04/27/17 15:15 97.9 92 16 135/89 (104) 97 04/27/17 12:00 98.8 72 16 127/81 (96) 98 I/O 04/27/17 04/27/17 04/27/17 04/28/17 04/28/17 04/28/17 07:00 15:00 23:00 07:00 15:00 23:00 Intake Total 0 ml 800 ml 658 ml Output Total 675 ml 1650 ml 360 ml 1000 ml Balance -675 ml -1650 ml 440 ml -342 ml Intake Oral 0 ml 0 ml IV Total 658 ml Other 800 ml Output Urine Total 675 ml 1650 ml 350 ml 1000 ml Estimated Blood Loss 10 ml # Bowel Movements 1 0 Result Diagram: 04/27/17 0646 04/27/1746 Objective Remarks Left Hip Percutaneous Screw Fixation Assessment & Plan Assessment and Plan POD #1 Left Hip Percutaneous Screw Fixation Pain management Antiocoagulation: Lovenox Weight bearing status: 50% WB PT/OT: OOB TID Dressing: Change daily, by RN starting postop day 2 Dispo: expected for patient to return to SNF Monitor Isauro Manuel Apr 28, 2017 10:52
--- NOTE | 2017-04-28 12:31 | HHI.PR ---
Subjective Remarks Follow-up fracture of left hip/UTI/dementia 04/28/17-patient seen and examined, currently with upper extremity restraints. Patient is alert however does not follow any command she is demented. Urine culture resistant to Cipro Objective Vitals Vital Signs Date Time Temp Pulse Resp B/P (MAP) Pulse Ox O2 Delivery O2 Flow Rate FiO2 04/28/17 12:00 97.3 73 18 112/58 (76) 98 04/28/17 09:58 99 Nasal Cannula 2.00 04/28/17 07:48 98.2 68 18 136/62 (86) 100 04/28/17 04:00 96.3 60 16 103/59 (74) 99 04/28/17 00:00 96.2 61 18 97/60 (72) 100 04/27/17 19:30 97.8 69 20 118/57 (77) 100 Nasal Cannula 4 04/27/17 19:30 Nasal Cannula 2.00 04/27/17 19:15 80 20 124/89 (101) 100 Nasal Cannula 4 04/27/17 19:00 68 20 119/65 (83) 93 Nasal Cannula 4 04/27/17 19:00 97.1 77 17 136/76 (96) 96 04/27/17 18:45 84 20 117/63 (81) 100 Nasal Cannula 4 04/27/17 18:30 68 20 132/60 (84) 100 Nasal Cannula 4 04/27/17 18:19 97.8 70 20 137/68 (91) 100 Nasal Cannula 4 04/27/17 16:15 98.5 84 18 127/90 (102) 95 04/27/17 15:15 97.9 92 16 135/89 (104) 97 I/O 04/27/17 04/27/17 04/27/17 04/28/17 04/28/17 04/28/17 07:00 15:00 23:00 07:00 15:00 23:00 Intake Total 0 ml 800 ml 658 ml Output Total 675 ml 1650 ml 360 ml 1000 ml Balance -675 ml -1650 ml 440 ml -342 ml Intake Oral 0 ml 0 ml IV Total 658 ml Other 800 ml Output Urine Total 675 ml 1650 ml 350 ml 1000 ml Estimated Blood Loss 10 ml # Bowel Movements 1 0 Result Diagram: 04/27/1746 04/27/1746 Imaging Last Impressions Hip X-Ray 04/27/17 0000 Signed Impressions: Service Date/Time: Thursday, April 27, 2017 17:58 - CONCLUSION: Limited images as detailed above. Abdullahi Huerta Jr., MD Abdomen/Pelvis CT 04/26/17 0000 Signed Impressions: Service Date/Time: April 06:22 - CONCLUSION: 1. No evidence of acute abdominal or pelvic process. No masses are identified. 2. Fecal impaction 3. Left femoral neck fracture Felix Ackerman MD Objective Remarks GENERAL: NAD with upper extremities restraints SKIN: Warm and dry. HEAD: Normocephalic. EYES: No scleral icterus. No injection or drainage. NECK: Supple, trachea midline. No JVD or lymphadenopathy. CARDIOVASCULAR: Regular rate and rhythm without murmurs, gallops, or rubs. RESPIRATORY: Breath sounds equal bilaterally. No accessory muscle use. GASTROINTESTINAL: Abdomen soft, non-tender, nondistended. MUSCULOSKELETAL: No cyanosis, or edema. Left hip repair BACK: Nontender without obvious deformity. No CVA tenderness. A/P Problem List: (1) Hip fracture, left ICD Code: S72.002A - Fracture of unspecified part of neck of left femur, initial encounter for closed fracture (2) UTI (urinary tract infection) ICD Code: N39.0 - Urinary tract infection, site not specified (3) Dementia ICD Code: F03.90 - Unspecified dementia without behavioral disturbance Status: Acute Assessment and Plan 71 year-old female with Left hip fracture Status post left total hip arthroplasty and management per orthopedic surgery PT to treat and eval and continue with 50% weight bearing left lower extremity Pain management accordingly Urinary tract infection Culture result stent to Cipro therefore will start patient on Rocephin IV 1 g until pt able to tolerate by mouth Dementia Chronic and not on any medication Hyperlipidemia Continue statin Hypertension Normotensive on lisinopril DVT prophylaxis: Jhonny Booker MD Apr 28, 2017 12:31
[2017-04-28] MEDS: cefTRIAXone INJ 1,000 MG in SODIUM CHLORIDE 0.9% INJ 100 ML IV SCH (13:29)
[2017-04-28] MEDS: SODIUM CHLOR 0.9% 1000 ML INJ 1,000 ML IV SCH (13:29)
[2017-04-28] MEDS: MIRTAZAPINE 15 MG TAB PO SCH (20:48)
[2017-04-28] MEDS: MULTIVITAMINS/MINERALS THERAPEUTIC TAB PO SCH (20:48)
[2017-04-28] MEDS: ATORVASTATIN 10 MG TAB PO SCH (21:00)
[2017-04-29] VITALS (8 sets, daily range): BP systolic 114–127; BP diastolic 61–76; PULSE 64–87; RESP 16–19; TEMP 96.1–98.1; O2SAT 94–98
[2017-04-29] MEDS: SODIUM CHLOR 0.9% 1000 ML INJ 1,000 ML IV SCH (01:35)
[2017-04-29] MEDS: ENOXAPARIN SODIUM 30 MG/0.3 ML SYRINGE SQ SCH ×2 (05:26→18:03)
[2017-04-29] MEDS: DOCUSATE SODIUM 50 MG/SENNA 8.6 MG TAB PO SCH ×2 (08:04→20:10)
[2017-04-29] MEDS: SODIUM CHLORIDE 0.9% FLUSH 10 ML FLUSH IV FLUSH SCH ×2 (08:04→21:00)
[2017-04-29] MEDS: CETIRIZINE HCL 10 MG TAB PO SCH (08:04)
[2017-04-29] MEDS: LISINOPRIL 5 MG TAB PO SCH (08:04)
[2017-04-29] MEDS: MULTIVITAMINS/MINERALS THERAPEUTIC TAB PO SCH ×2 (08:04→20:12)
--- NOTE | 2017-04-29 09:31 | PD.ORT.PN ---
Subjective Subjective Remarks Patient is demented. Unable to answer questions. Bilateral wrist restraints in place. Objective Vitals Vital Signs Date Time Temp Pulse Resp B/P (MAP) Pulse Ox O2 Delivery O2 Flow Rate FiO2 04/29/17 09:08 98 04/29/17 08:00 96.7 64 19 126/71 (89) 94 04/29/17 04:00 96.8 73 16 114/61 (78) 95 04/29/17 00:00 Nasal Cannula 2.00 04/28/17 23:36 98.2 81 18 102/55 (71) 95 04/28/17 22:00 95 21 04/28/17 20:10 97.0 86 18 124/67 (86) 96 04/28/17 19:30 Nasal Cannula 2.00 04/28/17 19:01 89 04/28/17 16:00 97.4 90 18 125/64 (84) 100 04/28/17 12:00 97.3 73 18 112/58 (76) 98 04/28/17 09:58 99 Nasal Cannula 2.00 I/O 04/28/17 04/28/17 04/28/17 04/29/17 04/29/17 04/29/17 07:00 15:00 23:00 07:00 15:00 23:00 Intake Total 658 ml 960 ml 240 ml 1064 ml Output Total 1000 ml 950 ml Balance -342 ml 10 ml 240 ml 1064 ml Intake Oral 0 ml 960 ml 240 ml 240 ml IV Total 658 ml 824 ml Output Urine Total 1000 ml 950 ml # Voids 1 1 # Bowel Movements 0 0 0 0 Result Diagram: 04/27/1746 04/27/1746 Objective Remarks Left Hip Percutaneous Screw Fixation Assessment & Plan Assessment and Plan POD #2 Left Hip Percutaneous Screw Fixation Pain management Antiocoagulation: Lovenox Weight bearing status: 50% WB PT/OT: OOB TID Daily dressing changes Dispo: expected for patient to return to SNF Monitor Isauro Manuel Apr 29, 2017 09:31
--- NOTE | 2017-04-29 09:53 | HHI.PR ---
Subjective Remarks Follow-up fracture of left hip/UTI/dementia 04/28/17-patient seen and examined, currently with upper extremity restraints. Patient is alert however does not follow any command she is demented. Urine culture resistant to Cipro 04/29/17-patient seen and examined, sitting bilateral upper extremity restraints however she does not appear to be disruptive this morning. Objective Vitals Vital Signs Date Time Temp Pulse Resp B/P (MAP) Pulse Ox O2 Delivery O2 Flow Rate FiO2 04/29/17 09:08 98 04/29/17 08:00 96.7 64 19 126/71 (89) 94 04/29/17 04:00 96.8 73 16 114/61 (78) 95 04/29/17 00:00 Nasal Cannula 2.00 04/28/17 23:36 98.2 81 18 102/55 (71) 95 04/28/17 22:00 95 21 04/28/17 20:10 97.0 86 18 124/67 (86) 96 04/28/17 19:30 Nasal Cannula 2.00 04/28/17 19:01 89 04/28/17 16:00 97.4 90 18 125/64 (84) 100 04/28/17 12:00 97.3 73 18 112/58 (76) 98 04/28/17 09:58 99 Nasal Cannula 2.00 I/O 04/28/17 04/28/17 04/28/17 04/29/17 04/29/17 04/29/17 07:00 15:00 23:00 07:00 15:00 23:00 Intake Total 658 ml 960 ml 240 ml 1064 ml Output Total 1000 ml 950 ml Balance -342 ml 10 ml 240 ml 1064 ml Intake Oral 0 ml 960 ml 240 ml 240 ml IV Total 658 ml 824 ml Output Urine Total 1000 ml 950 ml # Voids 1 1 # Bowel Movements 0 0 0 0 Result Diagram: 04/27/1764504/27/17 0646 Objective Remarks GENERAL: NAD with upper extremities restraints SKIN: Warm and dry. HEAD: Normocephalic. EYES: No scleral icterus. No injection or drainage. NECK: Supple, trachea midline. No JVD or lymphadenopathy. CARDIOVASCULAR: Regular rate and rhythm without murmurs, gallops, or rubs. RESPIRATORY: Breath sounds equal bilaterally. No accessory muscle use. GASTROINTESTINAL: Abdomen soft, non-tender, nondistended. MUSCULOSKELETAL: No cyanosis, or edema. Left hip repair BACK: Nontender without obvious deformity. No CVA tenderness. A/P Problem List: (1) Hip fracture, left ICD Code: S72.002A - Fracture of unspecified part of neck of left femur, initial encounter for closed fracture (2) UTI (urinary tract infection) ICD Code: N39.0 - Urinary tract infection, site not specified (3) Dementia ICD Code: F03.90 - Unspecified dementia without behavioral disturbance Status: Acute Assessment and Plan 71 year-old female with Left hip fracture Status post left total hip arthroplasty and management per orthopedic surgery PT to treat and eval and continue with 50% weight bearing left lower extremity Pain management accordingly Urinary tract infection-Escherichia coli positivity urine culture s/p Cipro Currently on Rocephin, will switch to by mouth Macrobid 100 mg by mouth twice a day 7 days Dementia Chronic and not on any medication Hyperlipidemia Continue statin Hypertension Normotensive on lisinopril DVT prophylaxis: Lovenox Disruptive behavior Trial of restrain free Discharge Planning Likely discharge to SNF if patient remains off restraints 24 hours Jhonny Dunlap MD Apr 29, 2017 09:53
[2017-04-29] MEDS: cefTRIAXone INJ 1,000 MG in SODIUM CHLORIDE 0.9% INJ 100 ML IV SCH (14:28)
[2017-04-29] MEDS: NITROFURANTOIN MONOHYD MACROCR 100 MG CAP PO SCH (18:02)
[2017-04-29] MEDS: MIRTAZAPINE 15 MG TAB PO SCH (20:10)
[2017-04-29] MEDS: ACETAMINOPHEN/HYDROcodone 325 MG/5 MG TAB PO PRN (20:11)
[2017-04-29] MEDS: ATORVASTATIN 10 MG TAB PO SCH (20:11)
[2017-04-30 00:21] VITALS: BP 109/58; PULSE 76; RESP 17; TEMP 98; O2SAT 96
[2017-04-30 04:29] VITALS: BP 133/67; PULSE 70; RESP 17; TEMP 98.1; O2SAT 96
[2017-04-30] MEDS: ACETAMINOPHEN/HYDROcodone 325 MG/5 MG TAB PO PRN ×3 (05:24→17:57)
[2017-04-30] MEDS: ENOXAPARIN SODIUM 30 MG/0.3 ML SYRINGE SQ SCH ×2 (05:24→17:58)
[2017-04-30 08:00] VITALS: BP 135/67; PULSE 55; RESP 17; TEMP 95.8; O2SAT 96
--- NOTE | 2017-04-30 10:18 | HHI.PR ---
Subjective Remarks Follow-up fracture of left hip/UTI/dementia 04/28/17-patient seen and examined, currently with upper extremity restraints. Patient is alert however does not follow any command she is demented. Urine culture resistant to Cipro 04/29/17-patient seen and examined, sitting bilateral upper extremity restraints however she does not appear to be disruptive this morning. 04/30/17-patient seen and examined, failed attempt of free restrain, afebrile Objective Vitals Vital Signs Date Time Temp Pulse Resp B/P (MAP) Pulse Ox O2 Delivery O2 Flow Rate FiO2 04/30/17 08:00 95.8 55 17 135/67 (89) 96 04/30/17 04:29 98.1 70 17 133/67 (89) 96 04/30/17 00:21 98.0 76 17 109/58 (75) 96 04/29/17 23:00 79 04/29/17 22:45 95 Room Air 04/29/17 20:10 98.1 87 17 116/61 (79) 95 04/29/17 18:36 94 04/29/17 16:00 96.1 72 18 126/73 (90) 94 04/29/17 12:00 97.5 68 18 127/76 (93) 95 I/O 04/29/17 04/29/17 04/29/17 04/30/17 04/30/17 04/30/17 07:00 15:00 23:00 07:00 15:00 23:00 Intake Total 1064 ml 240 ml 120 ml Balance 1064 ml 240 ml 120 ml Intake Oral 240 ml 240 ml 120 ml IV Total 824 ml # Voids 1 2 3 # Bowel Movements 0 0 0 Result Diagram: 04/27/1746 04/27/1746 Objective Remarks GENERAL: NAD with upper extremities restraints SKIN: Warm and dry. HEAD: Normocephalic. EYES: No scleral icterus. No injection or drainage. NECK: Supple, trachea midline. No JVD or lymphadenopathy. CARDIOVASCULAR: Regular rate and rhythm without murmurs, gallops, or rubs. RESPIRATORY: Breath sounds equal bilaterally. No accessory muscle use. GASTROINTESTINAL: Abdomen soft, non-tender, nondistended. MUSCULOSKELETAL: No cyanosis, or edema. Left hip repair BACK: Nontender without obvious deformity. No CVA tenderness. Procedures Status post Left hip percutaneous screw fixation 04/27/17 A/P Problem List: (1) Hip fracture, left ICD Code: S72.002A - Fracture of unspecified part of neck of left femur, initial encounter for closed fracture (2) UTI (urinary tract infection) ICD Code: N39.0 - Urinary tract infection, site not specified (3) Dementia ICD Code: F03.90 - Unspecified dementia without behavioral disturbance Status: Acute Assessment and Plan 71 year-old female with Left hip fracture Status post left total hip arthroplasty and management per orthopedic surgery PT to treat and eval and continue with 50% weight bearing left lower extremity Pain management accordingly Urinary tract infection-Escherichia coli positivity urine culture Status post Rocephin, currently on mouth Macrobid 100 mg by mouth twice a day 7 days Dementia with behavior disturbances Chronic and not on any medication Will try low-dose Zyprexa 5 mg at bedtime Hyperlipidemia Continue statin Hypertension Normotensive on lisinopril DVT prophylaxis: Lovenox Disruptive behavior Continue Trial of restrain free Start low-dose Zyprexa 5 mg at bedtime Discharge Planning Likely discharge to SNF if patient remains off restraints 24 hours Jhonny Dunlap MD Apr 30, 2017 10:18
[2017-04-30] MEDS: NITROFURANTOIN MONOHYD MACROCR 100 MG CAP PO SCH ×2 (10:30→17:55)
[2017-04-30] MEDS: MULTIVITAMINS/MINERALS THERAPEUTIC TAB PO SCH (10:31)
[2017-04-30] MEDS: CETIRIZINE HCL 10 MG TAB PO SCH (10:31)
[2017-04-30] MEDS: DOCUSATE SODIUM 50 MG/SENNA 8.6 MG TAB PO SCH ×2 (10:31→21:00)
[2017-04-30] MEDS: LISINOPRIL 5 MG TAB PO SCH (10:31)
[2017-04-30] MEDS: SODIUM CHLORIDE 0.9% FLUSH 10 ML FLUSH IV FLUSH SCH (10:33)
[2017-04-30 12:00] VITALS: BP 106/67; PULSE 70; RESP 17; TEMP 95.9; O2SAT 97
[2017-04-30] MEDS: cefTRIAXone INJ 1,000 MG in SODIUM CHLORIDE 0.9% INJ 100 ML IV SCH (13:25)
[2017-04-30 16:00] VITALS: BP 124/69; PULSE 72; RESP 18; TEMP 95.8; O2SAT 96
[2017-04-30 20:00] VITALS: BP 125/73; PULSE 77; RESP 15; TEMP 98.5; O2SAT 94
[2017-04-30] MEDS ORDERED: OLANZapine 5 MG TAB PO SCH (21:00)
[2017-05-01] VITALS: BP 135/72; PULSE 80; RESP 16; TEMP 98.4; O2SAT 93
[2017-05-01] MEDS: MULTIVITAMINS/MINERALS THERAPEUTIC TAB PO SCH ×2 (00:29→09:57)
[2017-05-01] MEDS: MIRTAZAPINE 15 MG TAB PO SCH (00:29)
[2017-05-01] MEDS: ATORVASTATIN 10 MG TAB PO SCH (00:32)
[2017-05-01] MEDS: SODIUM CHLORIDE 0.9% FLUSH 10 ML FLUSH IV FLUSH SCH ×2 (00:33→09:00)
[2017-05-01] MEDS: ACETAMINOPHEN/HYDROcodone 325 MG/5 MG TAB PO PRN ×2 (00:33→09:58)
[2017-05-01 04:00] VITALS: BP 105/60; PULSE 55; RESP 15; TEMP 97.2; O2SAT 95
[2017-05-01] MEDS: ENOXAPARIN SODIUM 30 MG/0.3 ML SYRINGE SQ SCH ×2 (06:16→17:42)
[2017-05-01 08:00] VITALS: BP 118/70; PULSE 63; RESP 16; TEMP 98; O2SAT 96
[2017-05-01] MEDS ORDERED: NITR100C4 PO (09:51)
--- NOTE | 2017-05-01 09:55 | HHI.PR ---
Subjective Remarks Follow-up fracture of left hip/UTI/dementia 04/28/17-patient seen and examined, currently with upper extremity restraints. Patient is alert however does not follow any command she is demented. Urine culture resistant to Cipro 04/29/17-patient seen and examined, sitting bilateral upper extremity restraints however she does not appear to be disruptive this morning. 04/30/17-patient seen and examined, failed attempt of free restrain, afebrile 03/31/17-patient seen and examined him a she's been off restraints since 8 last night and it appeared to be stable this morning. Vitals stable Objective Vitals Vital Signs Date Time Temp Pulse Resp B/P (MAP) Pulse Ox O2 Delivery O2 Flow Rate FiO2 05/01/17 08:00 98.0 63 16 118/70 (86) 96 05/01/17 04:00 97.2 55 15 105/60 (75) 95 05/01/17 00:00 98.4 80 16 135/72 (93) 93 04/30/17 20:00 98.5 77 15 125/73 (90) 94 04/30/17 19:18 Room Air 04/30/17 16:00 95.8 72 18 124/69 (87) 96 04/30/17 12:00 95.9 70 17 106/67 (80) 97 I/O 04/30/17 04/30/17 04/30/17 05/01/17 05/01/17 05/01/17 07:00 15:00 23:00 07:00 15:00 23:00 Intake Total 120 ml 720 ml Balance 120 ml 720 ml Intake Oral 120 ml 720 ml # Voids 3 2 2 # Bowel Movements 0 0 Result Diagram: 04/27/1746 04/27/17 06 Objective Remarks GENERAL: NAD SKIN: Warm and dry. HEAD: Normocephalic. EYES: No scleral icterus. No injection or drainage. NECK: Supple, trachea midline. No JVD or lymphadenopathy. CARDIOVASCULAR: Regular rate and rhythm without murmurs, gallops, or rubs. RESPIRATORY: Breath sounds equal bilaterally. No accessory muscle use. GASTROINTESTINAL: Abdomen soft, non-tender, nondistended. MUSCULOSKELETAL: No cyanosis, or edema. Left hip repair BACK: Nontender without obvious deformity. No CVA tenderness. Procedures Status post Left hip percutaneous screw fixation 04/27/17 A/P Problem List: (1) Hip fracture, left ICD Code: S72.002A - Fracture of unspecified part of neck of left femur, initial encounter for closed fracture (2) UTI (urinary tract infection) ICD Code: N39.0 - Urinary tract infection, site not specified (3) Dementia ICD Code: F03.90 - Unspecified dementia without behavioral disturbance Status: Acute Assessment and Plan 71 year-old female with Left hip fracture Status post left total hip arthroplasty and management per orthopedic surgery PT to treat and eval and continue with 50% weight bearing left lower extremity Pain management accordingly Urinary tract infection-Escherichia coli positivity urine culture Status post Rocephin, currently on mouth Macrobid 100 mg by mouth twice a day 7 days Dementia Chronic Hyperlipidemia Continue statin Hypertension Normotensive on lisinopril DVT prophylaxis: Lovenox Disruptive behavior Improving Discharge Planning Likely discharge to SNF if patient remains off restraints 24 hours Problem Qualifiers (1) Hip fracture, left: Qualified Codes: S72.002A - Fracture of unspecified part of neck of left femur , initial encounter for closed fracture (2) UTI (urinary tract infection): Qualified Codes: N30.00 - Acute cystitis without hematuria Jhonny Dunlap MD May 01, 2017 09:55
[2017-05-01] MEDS: NITROFURANTOIN MONOHYD MACROCR 100 MG CAP PO SCH ×2 (09:57→17:41)
[2017-05-01] MEDS: LISINOPRIL 5 MG TAB PO SCH (09:57)
[2017-05-01] MEDS: DOCUSATE SODIUM 50 MG/SENNA 8.6 MG TAB PO SCH (09:57)
[2017-05-01] MEDS: CETIRIZINE HCL 10 MG TAB PO SCH (09:57)
--- NOTE | 2017-05-01 09:57 | HHI.DS ---
Discharge Summary Admission Date Apr 26, 2017 at 08:41 Discharge Date: May 01, 2017 Admitting Diagnosis (1) Hip fracture, left ICD Code: S72.002A - Fracture of unspecified part of neck of left femur, initial encounter for closed fracture (2) UTI (urinary tract infection) ICD Code: N39.0 - Urinary tract infection, site not specified (3) Dementia ICD Code: F03.90 - Unspecified dementia without behavioral disturbance Status: Acute Procedures Status post Left hip percutaneous screw fixation 04/27/17 Brief History - From Admission This is a 71-year-old female who has severe dementia and on last admission a subdural hematoma who presented from the detention with a x-ray suggesting a hip fracture done due to questionable fall. Patient is nonverbal information obtained from medical records and from patient's ED nurse. Medical records reviewed from last admission in which patient was admitted due to subdural hematoma. At baseline patient is nonverbal, mumbles words and does not mobilize. During my interview with the patient and she does mumble words. She is restraints because per nurse she was digging into her rectum. Per patient's nurse she also had multiple bowel movements she was in the ED. Unable to obtain any review of system due to patient being a poor historian and mumbling words. CBC/BMP: 04/27/17 0646 04/27/17 0646 Imaging Last Impressions Hip X-Ray 04/27/17 0000 Signed Impressions: Service Date/Time: Thursday, April 27, 2017 17:58 - CONCLUSION: Limited images as detailed above. Abdullahi Huerta Jr., MD Abdomen/Pelvis CT 04/26/17 0000 Signed Impressions: Service Date/Time: April 06:22 - CONCLUSION: 1. No evidence of acute abdominal or pelvic process. No masses are identified. 2. Fecal impaction 3. Left femoral neck fracture Felix Ackerman MD PE at Discharge GENERAL: NAD SKIN: Warm and dry. HEAD: Normocephalic. EYES: No scleral icterus. No injection or drainage. NECK: Supple, trachea midline. No JVD or lymphadenopathy. CARDIOVASCULAR: Regular rate and rhythm without murmurs, gallops, or rubs. RESPIRATORY: Breath sounds equal bilaterally. No accessory muscle use. GASTROINTESTINAL: Abdomen soft, non-tender, nondistended. MUSCULOSKELETAL: No cyanosis, or edema. Left hip repair BACK: Nontender without obvious deformity. No CVA tenderness. Hospital Course Patient was admitted with left hip fracture for which orthopedic surgery was consulted and she underwent repair. Hospitalization was complicated by urinary tract infections with altered mental status changes for which patient was started on IV antibiotics and upper extremity restrains were placed. Subsequently prior to discharge patient conditions and mentation improved. DVT and GI prophylaxis were provided. She was continued on treatment for hypertension and hyperlipidemia. At the time of discharge, patient's conditions improved and vitals remained stable. She will continue oral antibiotic including Macrobid 7 days total. Pt Condition on Discharge: Stable Discharge Disposition: Discharge to SNF Discharge Time: > 30 minutes Discharge Instructions DIET: Follow Instructions for: Heart Healthy Diet Activities you can perform: Regular-No Restrictions Follow up Referrals: Orthopedics - 2 Weeks @ [facility] with Tavon Laureano Jr., MD PCP Follow-up - 2-3 Days New Medications: Oxycodone-Acetaminophen (Percocet) 5-325 mg Tab 1 TAB PO Q4H PRN for PAIN, #60 TAB 0 Refills Nitrofurantoin Monohydrate Macrocrystals (Nitrofurantoin Monohydrate Macrocrystals) 100 Mg Cap 100 MG PO BIDPC for Infection, #12 CAP Continued Medications: Acetaminophen (Mapap) 325 Mg Tab 650 MG PO Q4HR PRN for ELEVATED TEMP, TAB 0 Refills Atorvastatin (Atorvastatin) 10 Mg Tab 10 MG PO HS for Cholesterol Management, #30 TAB 0 Refills Bisacodyl Supp (Dulcolax Supp) 10 Mg Supp 10 MG RECTAL DAILY PRN for IF NO BM FROM MOM, #12 SUPP 0 Refills Cetirizine (Cetirizine) 10 Mg Tab 10 MG PO DAILY for Allergies, TAB 0 Refills Lisinopril (Zestril) 5 Mg Tab 5 MG PO DAILY for SBP & DBP CHF, #30 TAB 0 Refills Magnesium Hydroxide Liq (Milk of Magnesia Liq) 400 Mg/5 Ml Susp 30 ML PO DAILY PRN for IF NO BM WITHIN 3 DAYS, #1 BOTTLE 0 Refills Mirtazapine (Mirtazapine) 15 Mg Tab 15 MG PO HS for MDD, #30 TAB 0 Refills Multiple Vitamins W/ Minerals (Thera-M) 1 Tab 1 TAB PO DAILY for Nutritional Supplement, TAB 0 Refills Quetiapine XR (Seroquel XR) 50 Mg Tab 75 MG PO HS for SCHIZOPHRENIA, #30 TAB 0 Refills Sodium Phosphates (Enema 7-19 gm/118Ml) 1 Mala Mala 118 ML MD DAILY PRN for IF NO BM FROM SUPP Triamcinolone Topical (Triderm Topical) 0.1 % Cream 1 APPLIC TOPICAL BID for Inflammation, GM 0 Refills Discontinued Medications: Tuberculin Ppd (Tubersol) 5 Unit/0.1 Ml Syringe 0.1 ML I-DERMAL .ONCE PRN for q1yr, #1 SYRINGE 0 Refills Jhonny Dunlap MD May 01, 2017 09:57
[2017-05-01 12:00] VITALS: BP 114/69; PULSE 61; RESP 17; TEMP 97.6; O2SAT 97
[2017-05-01] MEDS: cefTRIAXone INJ 1,000 MG in SODIUM CHLORIDE 0.9% INJ 100 ML IV SCH (13:00)
[2017-05-01 16:00] VITALS: BP 100/64; PULSE 69; RESP 17; TEMP 98; O2SAT 95
== END 2017-05-01 20:19 | DRG 481 ==
LOC: NEPC 04:32 → NEDA 08:41 → N06A 14:06
PROVIDERS: ADMIT Hospitalist; ATTEND Hospitalist
PROC: 0QH734Z Insertion of Internal Fixation Device into Left Upper Femur, Percutaneous Approach (ICD-10-PCS; principal; 2017-04-27 16:54)
DX: S72.032A Displaced midcervical fracture of left femur, initial encounter for closed fracture (principal); F03.91 Unspecified dementia, unspecified severity, with behavioral disturbance; I11.0 Hypertensive heart disease with heart failure; I50.9 Heart failure, unspecified; N39.0 Urinary tract infection, site not specified; F32.9 Major depressive disorder, single episode, unspecified; F41.9 Anxiety disorder, unspecified; K56.41 Fecal impaction; E78.5 Hyperlipidemia, unspecified; F20.9 Schizophrenia, unspecified; B96.20 Unspecified Escherichia coli [E. coli] as the cause of diseases classified elsewhere; W19.XXXA Unspecified fall, initial encounter; Z16.23 Resistance to quinolones and fluoroquinolones; Z87.820 Personal history of traumatic brain injury; Z78.1 Physical restraint status
CPT/HCPCS: 51702; 73502; 74176; 76000; 80048; 80053; 81001; 85025; 87077; 87086; 87186; 93005; 96365; J0131; J0690; J0696; J0744; J1100; J1580; J1650; J2270; J2370; J2405; J3010; J3370; J7030; J7050; J7120

== ENCOUNTER 2017-05-16 10:01 | Emergency (ER) | payer MEDICARE, OTHER ==
[~2017-05-16] VITALS: Ht 162.6 cm; Wt 61.6 kg
[~2017-05-16 10:01] MED LIST changes: +CETI10 PO; -DONE10TA7 PO; -NAME10TA PO; +NITR100C4 PO; +PERC5TAB12 PO
[2017-05-16] MEDS ORDERED: EPINEPHrine HCL (1:10,000) 1 MG/10 ML SYRINGE IV ONE (10:02)
[2017-05-16 10:15] VITALS: BP 157/86; PULSE 60
[2017-05-16 10:22] VITALS: O2SAT 100
[2017-05-16] MEDS ORDERED: SODIUM CHLOR 0.9% 1000 ML INJ 1,000 ML IV SCH (10:26)
[2017-05-16] MEDS ORDERED: DOPamine INJ PREMIX 500 ML IV PRN (10:30)
[2017-05-16] MEDS ORDERED: SODIUM CHLOR 0.9% 1000 ML INJ 1,000 ML IV ONE (10:30)
[2017-05-16] MEDS ORDERED: TERBUTALINE INJ 1 MG/ML AMP SQ PRN (10:30)
[2017-05-16] MEDS ORDERED: SODIUM CHLORIDE 0.9% FLUSH 10 ML FLUSH IV FLUSH PRN (10:30)
[2017-05-16 10:40] VITALS: BP 43/16; PULSE 52
[2017-05-16] MEDS ORDERED: IOHEXOL 350 MG/ML 10 ML VIAL (for RAD DIAG) IVCONTRAST ONE (10:42)
--- NOTE | 2017-05-16 10:44 | RADRPT ---
EXAM DATE/TIME: 05/16/2017 10:22 [facility] COMPARISON: CT BRAIN W/O CONTRAST, January 01, 2017, 4:14. INDICATIONS : Altered mental status. Syncopal episode. RADIATION DOSE: 69.15 CTDIvol (mGy) MEDICAL HISTORY : Non-responsive. SURGICAL HISTORY : Non-responsive. ENCOUNTER: Initial ACUITY: 1 day PAIN SCALE: Non-responsive LOCATION: cranial TECHNIQUE: Multiple contiguous axial images were obtained of the head. Using automated exposure control and adj ustment of the mA and/or kV according to patient size, radiation dose was kept as low as reasonably a chievable to obtain optimal diagnostic quality images. DICOM format image data is available electro nically for review and comparison. FINDINGS: There is marked central and cortical atrophy with dilatation of ventricular and sulcal spaces. There is no parenchymal hemorrhage, acute infarction or mass lesion identified. There are no extra-a xial fluid collections appreciated. The posterior fossa is unremarkable with midline fourth ventricl e. The portion of the orbits and paranasal sinuses visualized are unremarkable. CONCLUSION: Atrophy otherwise negative. Mio Young MD FACR on May 16, 2017 at 10:41 Board Certified Radiologist. This report was verified electronically.
[2017-05-16 10:45] VITALS: O2SAT 100
[2017-05-16] MEDS ORDERED: MISCELLANEOUS NURSING INFORMATION OTHER PRN (10:45)
[2017-05-16] MEDS ORDERED: ALTEPLASE INJ 100 MG in WATER STERILE FOR INJ 100 ML IV ONE (10:45)
--- NOTE | 2017-05-16 10:49 | RADRPT ---
EXAM DATE/TIME: 05/16/2017 10:26 [facility] COMPARISON: No previous studies available for comparison. INDICATIONS : Syncopal episode. IV CONTRAST: 82 cc Omnipaque 350 (iohexol) IV RADIATION DOSE: 10.97 CTDIvol (mGy) MEDICAL HISTORY : Non-responsive. SURGICAL HISTORY : Non-responsive. ENCOUNTER: Initial ACUITY: 1 day PAIN SCALE: 10/10 LOCATION: chest TECHNIQUE: Volumetric scanning of the chest was performed using a pulmonary embolism protocol MIP images were re constructed. Using automated exposure control and adjustment of the mA and/or kV according to patien t size, radiation dose was kept as low as reasonably achievable to obtain optimal diagnostic quality images. DICOM format image data is available electronically for review and comparison. Follow-up recommendations for detected pulmonary nodules are based at a minimum on nodule size and pa tient risk factors according to Fleischner Society Guidelines. FINDINGS: PULMONARY ARTERIES: Large filling defects are observed involving the central pulmonary arteries bilaterally with saddle e mbolus straddling the pulmonary arteries. There is distention of the SVC and brachycephalic veins as well as reflux of contrast into the hepatic veins. LUNGS: There is patchy consolidation involving the posterior right lower lobe most pronounced within the sup erior segment. This is felt to relate to dependent atelectasis. No infiltrates or effusions. PLEURAE: There is no pleural thickening or pleural effusion. MEDIASTINUM: Mild cardiomegaly with enlargement of the right atrium. Coronary artery atherosclerotic calcification s. No adenopathy. Endotracheal tube noted. MUSCULOSKELETAL: Within normal limits for patient age. MISCELLANEOUS: The visualized upper abdominal organs demonstrate no acute abnormality. CONCLUSION: Large volume pulmonary embolus including saddle embolus. There are secondary signs suggesting a compo nent of right-sided heart failure. Abdullahi Huerta Jr., MD on May 16, 2017 at 10:44 Board Certified Radiologist. This report was verified electronically.
[2017-05-16 10:54] VITALS: BP 68/35
[2017-05-16 10:57] VITALS: BP 60/20; PULSE 42
--- NOTE | 2017-05-16 11:27 | PD ---
HPI Chief Complaint: Neuro Symptoms/ Deficits Time Seen by Provider: 10:16 Travel History International Travel<30 days: No Contact w/Intl Traveler<30days: No Traveled to known affect area: No History of Present Illness HPI 71-year-old female came to the emergency room brought by EMS emergently after she suddenly collapsed at the orthopedics waiting room. Not much history was obtained given the fact that patient was unresponsive. Patient has history of schizophrenia and the reason for her or toe office visit was unknown. She was found with a GCS of 4 and agonal respirations. They intubated her at the scene with etomidate, Ativan and lidocaine. A stroke alert was called by EMS. As per them they had put an IO and during that patient had moved all 4 extremities to some extent. Her blood pressure was dismal and the best recorded was 88 as per EMS and she was started on dopamine at 5 mics per minute. Patient is not on any blood thinners. She does have history of schizophrenia. Patient obviously was unable to give any history given the mental status and intubation. When she arrived a manual blood pressure was the only thing that could be obtained and it was 45 systolic. Heart rate was in 160s and atrial fibrillation. [facility] Past Medical History Narrative Medical List of her past medical, surgical, social and family history is reviewed from the nursing note. Anxiety: Yes Depression: Yes Cancer: No High Cholesterol: Yes Congestive Heart Failure: Yes Endocrine: No Genitourinary: No Musculoskeletal: No Neurologic: Yes (Alzheimer's, subdural hemhorrage) Psychiatric: Yes (Insomnia, Psyzophrenia, psychosis) Reproductive: No Respiratory: No Social History Alcohol Use: No (UNABLE TO ASSESS ) Tobacco Use: No (UNABLE TO ASSESS ) Substance Use: No (UNABLE TO ASSESS ) Allergies-Medications (Allergen,Severity, Reaction): Coded Allergies: No Known Allergies (Unverified Allergy, Unknown, 05/16/17) Comments No known drug allergies. Reported Meds & Prescriptions Reported Meds & Active Scripts Active Nitrofurantoin Monohydrate Macrocrystals (Nitrofurantoin Monoh/Nitrofur Macro) 100 Mg Cap 100 Mg PO BIDPC Percocet (Oxycodone-Acetaminophen) 5-325 mg Tab 1 Tab PO Q4H PRN Reported Cetirizine (Cetirizine HCl) 10 Mg Tab 10 Mg PO DAILY Zestril (Lisinopril) 5 Mg Tab 5 Mg PO DAILY Triderm Topical (Triamcinolone Topical) 0.1 % Cream 1 Applic TOPICAL BID Thera-M (Multiple Vitamins W/ Minerals) 1 Tab 1 Tab PO DAILY Seroquel XR (Quetiapine Fumarate) 50 Mg Tab 75 Mg PO HS Mirtazapine 15 Mg Tab 15 Mg PO HS Milk of Magnesia Liq (Magnesium Hydroxide) 400 Mg/5 Ml Susp 30 Ml PO DAILY PRN Enema 7-19 gm/118Ml (Sodium Phosphates) 1 Mala Mala 118 Ml [place] DAILY PRN Dulcolax Supp (Bisacodyl) 10 Mg Supp 10 Mg RECTAL DAILY PRN Atorvastatin (Atorvastatin Calcium) 10 Mg Tab 10 Mg PO HS Mapap (Acetaminophen) 325 Mg Tab 650 Mg PO Q4HR PRN Narrative Medication List of her home medications reviewed from the nursing note. Review of Systems ROS Limitations: Intubated Except as stated in HPI: all other systems reviewed are Neg Physical Exam Exam Limitations: Altered Mental Status Narrative GENERAL: Unresponsive, intubated SKIN: Focused skin assessment warm/dry. Mottled HEAD: Atraumatic. Normocephalic. EYES: Pupils equal and round. 2 mm bilaterally and non reactive to light. No scleral icterus. No injection or drainage. ENT: No nasal bleeding or discharge. Mucous membranes pink and moist. NECK: Trachea midline. No JVD. ET tube, being bagged CARDIOVASCULAR: Irregularly irregular rhythm, tachycardia, thready pulses RESPIRATORY: No accessory muscle use. Patient has been back through the ET tube. She does take spontaneous respirations GASTROINTESTINAL: Abdomen soft, non-tender, nondistended. Hepatic and splenic margins not palpable. MUSCULOSKELETAL: No obvious deformities. No clubbing. No cyanosis. No edema. NEUROLOGICAL: GCS of 3 PSYCHIATRIC: Unable to assess Data Data Last Documented VS Orders Orders Ct Brain W/O Iv Contrast(Rout) (05/16/17 ) Ct Pulmonary Angiogram (05/16/17 ) Electrocardiogram (05/16/17 10:26) Blood Glucose (05/16/17 10:26) Ecg Monitoring (05/16/17 10:26) Iv Access Insert/Monitor (05/16/17 10:26) Oximetry (05/16/17 10:26) Sodium Chloride 0.9% Flush (Ns Flush) (05/16/17 10:30) Sodium Chlor 0.9% 1000 Ml Inj (Ns 1000 M (05/16/17 10:26) Sodium Chlor 0.9% 1000 Ml Inj (Ns 1000 M (05/16/17 10:30) Dopamine Inj Premix (Dopamine Inj Premix (05/16/17 10:30) Terbutaline Inj (Brethine Inj) (05/16/17 10:30) Urinary Catheter Insert/Apply (05/16/17 10:26) ^ Orogastric Tube (05/16/17 10:26) Urinary Catheter Management TAVARES.Q8H (05/16/17 10:40) Urinary Catheter Insert/Apply (05/16/17 10:40) Activity Bed Rest (05/16/17 10:40) Anticoagulant Alert (05/16/17 10:40) ^ Post Infusion Restrictions (05/16/17 10:40) Vital Signs (Adult) .As directed (05/16/17 10:40) Notify Dr: Blood Pressure (05/16/17 10:40) ^ Medication Alert (05/16/17 10:40) Misc Nursing Information (05/16/17 10:45) Alteplase Inj (Activase Inj) (05/16/17 10:45) Iohexol 350 Inj (Omnipaque 350 Inj) (05/16/17 10:42) Admit Order (Ed Use Only) (05/16/17 10:42) MDM Medical Decision Making Medical Screen Exam Complete: Yes Emergency Medical Condition: Yes Medical Record Reviewed: Yes Interpretation(s) Twelve-lead EKG was reviewed by me. Low voltage, atrial fibrillation, RVR. Heart rate of 185 bpm Differential Diagnosis Massive PE, intracranial bleed, metabolic encephalopathy Narrative Course 11:21 AM my suspicion was strong for PE. Patient was fluid resuscitated along with IV dopamine given her hypotensive and shock status. Also I attempted a synchronized cardioversion given her A. fib with RVR and hemodynamic instability. She was shocked at 200 J without much improvement of her hemodynamic status. She was emergently taken to the CT scanner in spite of her hemodynamic instability in order to get a diagnosis of head bleed versus PE in which case my plan was to give her TPA. My pretest probability for PE was really high. CT head was negative for head bleed however CT pulmonary angiogram was positive for massive bilateral PE. After she was brought back I emergently ordered TPA as per the PE protocol which was given. I spoke with Dr. Jean about this patient. He came down and soon after patient lost her pulse. CPR was initiated and one round of epi was given. However at this point the charge nurse came back with a printed photocopy of her DNR status that was in our system. Patient had achieved ROSC for brief period. The class a regional truck driver did sign another DNR. Soon after that patient lost her pulse again and she was pronounced by the class a regional truck driver. Critical Care Narrative Aggregate critical care time was 45 minutes. Time to perform other separately billable procedures was not included in the critical care time. My time did not include minutes spent treating any other patients simultaneously or on activities that did not directly contribute to the patient's treatment. The services I provided to this patient were to treat and/or prevent clinically significant deterioration that could result in: Unresponsive, respiratory failure, distributive shock, massive bilateral PE I provided critical care services requiring my management, as noted below: Chart data review, documentation time, medication orders and management, vital sign assessments/reviewing monitor data, ordering and reviewing lab tests, ordering and interpreting/reviewing x-rays and diagnostic studies, care of the patient and discussion of the patient with the admitting physicians. Procedures Procedure Narrative Synchronize cardioversion: 200 J of energy was used for synchronize cardioversion. Patient had brief moment of slowing down of the A. fib with RVR. She was unstable. Emergency department cardiac ultrasound was performed with patient consent. [-] probe was used in the epigastric, parasternal long/short access, four- chamber apical revealing no evidence of pericardial effusion. Patient's overall cardiac squeeze was hyper-dynamic. EKG Prior to Arrival: No Physician Communication Physician Communication Dr. Jean Diagnosis Primary Impression: Unresponsive Additional Impressions: Respiratory failure Qualified Codes: J96.00 - Acute respiratory failure, unspecified whether with hypoxia or hypercapnia Bilateral pulmonary embolism Cardiorespiratory arrest Disposition: 20 Condition: Marium Dee MD May 16, 2017 11:27
--- NOTE | 2017-05-16 11:55 | HHI.HP ---
HPI Service Critical Care Medicine Primary Care Physician Unknown Admission Diagnosis massive PE, cardiac shock, unresponsive, respiratory failure Diagnosis: (1) Bilateral pulmonary embolism Diagnosis: Principal (2) Respiratory failure Diagnosis: Principal (3) Cardiorespiratory arrest Diagnosis: Principal (4) Dementia Diagnosis: Secondary Chief Complaint: Patient found unresponsive at orthopedic clinic of [facility] Travel History International Travel<30 Days: No Contact w/Intl Traveler <30 Da: No Traveled to Known Affected Are: No History of Present Illness 71-year-old female resident of [facility]. Date of admission . Past medical history includes recent placement of left percutaneous screw for left valgus femoral neck fracture 04/[address] Santiago. She also has a history of hypertension, dementia, continue for hernia and recent history of subdural hematoma with facial fracture 01/01. She originally presented to the [facility] emergency room brought by EMS emergently after she suddenly collapsed at the orthopedics waiting room. She was last seen her normal state of health approximate 9:30. Downtime could've been approximately 20 minutes. She was found with a GCS of 4 and agonal respirations. They intubated her at the scene with etomidate 0 mg, 4 mg lorazepam and lidocaine no dosage. A stroke alert regionally was called by EMS. At that time, an IO placed in the left fibula and during that patient had moved all 4 extremities to some extent. She was hypotensive with systolic blood pressure in the 80s and heart rate in the 160s at each of fibrillation and she was started on peripheral dopamine at 5 mics per minute. Patient is not on any blood thinners. BMP/CBC remarkable. EKG revealed atrial fibrillation with RVR. CT pulmonary angiogram revealed massive pulmonary was moved bilateral's pulmonary emboli with engorged SVC, brachiocephalic and hepatic vasculature likely indicating severe right heart strain. Bedside echo revealed the same. Patient did receive alteplase per our PE protocol. At this time I was asked to admit the patient When I arrived, patient coded and received CPR for approximately 10 minutes. I discussed with healthcare proxy over the phone Wilber/. Patient is a DNR and this was reaffirmed. Patient will remain intubated. Despite vasopressor therapies and initiation of alteplase by ED physician, patient lost her pulse 1 minute after the completion were phone call and DNR was re-signed the ED. Time of was 1104. Review of Systems ROS Limitations: Intubated Past Family Social History Allergies: Coded Allergies: No Known Allergies (Unverified Allergy, Unknown, 05/16/17) Past Medical History Schizophrenia History of subdural hematoma Hypertension Dyslipidemia Past Surgical History Nothing previously documented Reported Medications Nitrofurantoin Monohydrate Macrocrystals (Nitrofurantoin Monoh/Nitrofur Macro) 100 Mg Cap 100 Mg PO BIDPC Percocet (Oxycodone-Acetaminophen) 5-325 mg Tab 1 Tab PO Q4H PRN Reported Cetirizine (Cetirizine HCl) 10 Mg Tab 10 Mg PO DAILY Zestril (Lisinopril) 5 Mg Tab 5 Mg PO DAILY Triderm Topical (Triamcinolone Topical) 0.1 % Cream 1 Applic TOPICAL BID Thera-M (Multiple Vitamins W/ Minerals) 1 Tab 1 Tab PO DAILY Seroquel XR (Quetiapine Fumarate) 50 Mg Tab 75 Mg PO HS Mirtazapine 15 Mg Tab 15 Mg PO HS Milk of Magnesia Liq (Magnesium Hydroxide) 400 Mg/5 Ml Susp 30 Ml PO DAILY PRN Enema 7-19 gm/118Ml (Sodium Phosphates) 1 Mala Mala 118 Ml [place] DAILY PRN Dulcolax Supp (Bisacodyl) 10 Mg Supp 10 Mg RECTAL DAILY PRN Atorvastatin (Atorvastatin Calcium) 10 Mg Tab 10 Mg PO HS Mapap (Acetaminophen) 325 Mg Tab 650 Mg PO Q4HR PRN Active Ordered Medications Reviewed in EMR Family History Other father has not been documented previously. Unknown due to her underlying dementia/schizophrenia Social History No documentation of alcohol, tobacco or illicit drug use Physical Exam Vital Signs Vital Signs Date Time Temp Pulse Resp B/P (MAP) Pulse Ox O2 Delivery O2 Flow Rate FiO2 05/16/17 10:58 100 05/16/17 10:57 42 60/20 (33) 05/16/17 10:45 100 100 05/16/17 10:40 52 43/16 (25) 05/16/17 10:22 100 100 05/16/17 10:15 60 157/86 (109) Physical Exam GENERAL: This is a 71-year-old female, critically ill resting in bed SKIN: Cool, dry, mottled HEAD: Atraumatic. Normocephalic. EYES: Pupils equal and round and fixed at 6 mm bilaterally. No scleral icterus. No injection or drainage. ENT: No nasal bleeding or discharge. Mucous membranes pink and moist. NECK: Trachea midline. No JVD. CARDIOVASCULAR: Bradycardic, irregular. S1, S2. RESPIRATORY: Clear to auscultation. Breath sounds equal bilaterally. GASTROINTESTINAL: Abdomen soft, non-tender, nondistended. Hepatic and splenic margins not palpable. MUSCULOSKELETAL: Extremities without significant peripheral edema. There is a covered incision over the lateral aspect of left hip NEUROLOGICAL: Cranial nerves currently not intact. GCS of 3. Does not withdraw to pain. Imaging Last Impressions Head CT 05/16/17 0000 Signed Impressions: Service Date/Time: Tuesday, May 16, 2017 10:22 - CONCLUSION: Atrophy otherwise negative. Mio Young MD FACR CT Angiography 05/16/17 0000 Signed Impressions: Service Date/Time: Tuesday, May 16, 2017 10:26 - CONCLUSION: Large volume pulmonary embolus including saddle embolus. There are secondary signs suggesting a component of right-sided heart failure. Abdullahi Huerta Jr., MD Capjurgeni VTE Risk Assessment Caprini VTE Risk Assessment: Mod/High Risk (score >= 2) Caprini Risk Assessment Model Point Value = 1 Point Value = 2 Point Value = 3 Point Value = 5 Age 41-60 Minor surgery BMI > 25 kg/m2 Swollen legs Varicose veins or History of unexplained or recurrent spontaneous Oral contraceptives or hormone replacement Sepsis (< 1 month) Serious lung disease, including pneumonia (< 1 month) Abnormal pulmonary function Acute myocardial infarction Congestive heart failure (< 1 month) History of inflammatory bowel disease Medical patient at bed rest Age 61-74 Arthroscopic surgery Major open surgery (> 45 min) Laparoscopic surgery (> 45 min) Malignancy Confined to bed (> 72 hours) Immobilizing plaster cast Central venous access Age >= 75 History of VTE Family history of VTE Factor V Leiden Prothrombin [id number] Lupus anticoagulant Anticardiolipin antibodies Elevated serum homocysteine Heparin-induced thrombocytopenia Other congenital or acquired thrombophilia Stroke (< 1 month) Elective arthroplasty Hip, pelvis, or leg fracture Acute spinal cord injury (< 1 month) Prophylaxis Regimen Total Risk Factor Score Risk Level Prophylaxis Regimen 0-1 Low Early ambulation 2 Moderate Order ONE of the following: *Sequential Compression Device (SCD) *Heparin 5000 units SQ BID 3-4 Higher Order ONE of the following medications: *Heparin 5000 units SQ TID *Enoxaparin/Lovenox 40 mg SQ daily (WT < 150 kg, CrCl > 30 mL/min) *Enoxaparin/Lovenox 30 mg SQ daily (WT < 150 kg, CrCl > 10-29 mL/min) *Enoxaparin/Lovenox 30 mg SQ BID (WT < 150 kg, CrCl > 30 mL/min) AND/OR *Sequential Compression Device (SCD) 5 or more Highest Order ONE of the following medications: *Heparin 5000 units SQ TID (Preferred with Epidurals) *Enoxaparin/Lovenox 40 mg SQ daily (WT < 150 kg, CrCl > 30 mL/min) *Enoxaparin/Lovenox 30 mg SQ daily (WT < 150 kg, CrCl > 10-29 mL/min) *Enoxaparin/Lovenox 30 mg SQ BID (WT < 150 kg, CrCl > 30 mL/min) AND *Sequential Compression Device (SCD) Assessment and Plan Assessment and Plan Neuro/Psych: Schizophrenia NOS History of right infero-orbital rim fracture History of right subdural hematoma Patient is currently not on any medications for pain management CT brain 05/16 reveals no acute intracranial health Seroquel XR (Quetiapine Fumarate) 50 Mg Tab 75 Mg PO HS currently being held Mirtazapine 15 Mg Tab 15 Mg PO HS currently being held Cetirizine (Cetirizine HCl) 10 Mg Tab 10 Mg PO DAILY for rhinitis/rash currently being held Percocet (Oxycodone-Acetaminophen) 5-325 mg Tab 1 Tab PO Q4H PRN home medication for pain currently being held CV: Cardiopulmonary arrest secondary to massive PE Cardiogenic shock with right heart failure History of hypertension Status post CODE BLUE in ED was initially received epinephrine 2 with chest compressions Currently on dopamine drip at 20 mcg/kg per minute Holding home medication lisinopril 5 mill grams daily for hypertension while hypotensive Occasion atorvastatin 10 mg daily for dyslipidemia Resp: Acute respiratory failure secondary to massive PE PRVC ventilation As needed albuterol therapies CT pulmonary mammogram revealed massive bilateral cerebral emboli with engorgement of SVC, brachiocephalic and hepatic vessels indicating right heart strain Received alteplase per protocol in ED GI: NG tube placed to low intermittent wall suction Pantoprazole for GI prophylaxis Docusate sodium/senna for bowel regimen : Masterson catheter was placed for accurate I's and O's in a critically ill patient Endo: Sliding-scale if indicated to maintain euglycemia Check TSH Renal: Creatinine currently within normal limits Monitor urine output Accurate I's and O's Heme: CBC currently within normal limits Currently not on any blood thinners ID: History of recurrent UTI Recently treated with nitrofurantoin UA positive for infection MSK: Status post left percutaneous screw fixation for left valgus femoral neck fracture 04/[address] Santiago Follow up today canceled due to events as above FEN: Replace electrolytes as clinically indicated Access - Left tibial IO peripheral IV. Prophylaxis - GI - pantoprazole - DVT - SCD/heparin per alteplase protocol Time spent was 35 minutes/level II admission Code Status DNR Discussed Condition With Discussed the case with Dr. Dee/ED physician. Notified Celeste Bai at [phone] was with Wilber White/. During this time, we re-affirmed DNR status. Problem Qualifiers (1) Respiratory failure: Qualified Codes: J96.00 - Acute respiratory failure, unspecified whether with hypoxia or hypercapnia (2) Dementia: Nahid Jean MD May 16, 2017 11:54
--- NOTE | 2017-05-16 12:24 | HHI.DS ---
Summary Note Date of : May 16, 2017 Time Of : 1104 Admission Date May 16, 2017 at 10:44 Admitting Diagnosis massive PE, cardiac shock, unresponsive, respiratory failure Diagnosis at Time of : (1) Bilateral pulmonary embolism ICD Code: I26.99 - Other pulmonary embolism without acute cor pulmonale Diagnosis: Principal (2) Respiratory failure ICD Code: J96.90 - Respiratory failure, unspecified, unspecified whether with hypoxia or hypercapnia Diagnosis: Principal (3) Cardiorespiratory arrest ICD Code: I46.9 - Cardiac arrest, cause unspecified Diagnosis: Principal (4) Dementia ICD Code: F03.90 - Unspecified dementia without behavioral disturbance Diagnosis: Secondary Procedures CODE BLUE Brief History 71-year-old female resident of [facility]. Date of admission . Past medical history includes recent placement of left percutaneous screw for left valgus femoral neck fracture 04/[address] Santiago. She also has a history of hypertension, dementia, continue for hernia and recent history of subdural hematoma with facial fracture 01/01. She originally presented to the [place] emergency room brought by EMS emergently after she suddenly collapsed at the orthopedics waiting room. She was last seen her normal state of health approximate 9:30. Downtime could've been approximately 20 minutes. She was found with a GCS of 4 and agonal respirations. They intubated her at the scene with etomidate 0 mg, 4 mg lorazepam and lidocaine no dosage. A stroke alert regionally was called by EMS. At that time, an IO placed in the left fibula and during that patient had moved all 4 extremities to some extent. She was hypotensive with systolic blood pressure in the 80s and heart rate in the 160s at each of fibrillation and she was started on peripheral dopamine at 5 mics per minute. Patient is not on any blood thinners. BMP/CBC remarkable. EKG revealed atrial fibrillation with RVR. CT pulmonary angiogram revealed massive pulmonary was moved bilateral's pulmonary emboli with engorged SVC, brachiocephalic and hepatic vasculature likely indicating severe right heart strain. Bedside echo revealed the same. Patient did receive alteplase per our PE protocol. At this time I was asked to admit the patient When I arrived, patient coded and received CPR for approximately 10 minutes. I discussed with healthcare proxy over the phone Wilber/. Patient is a DNR and this was reaffirmed. Patient will remain intubated. Despite vasopressor therapies and initiation of alteplase by ED physician, patient lost her pulse 1 minute after the completion were phone call and DNR was re-signed the ED. Time of was 1104. Significant Findings Massive bilateral pulmonary embolism Imaging Last Impressions Head CT 05/16/17 0000 Signed Impressions: Service Date/Time: Tuesday, May 16, 2017 10:22 - CONCLUSION: Atrophy otherwise negative. Mio Young MD FACR CT Angiography 05/16/17 0000 Signed Impressions: Service Date/Time: Tuesday, May 16, 2017 10:26 - CONCLUSION: Large volume pulmonary embolus including saddle embolus. There are secondary signs suggesting a component of right-sided heart failure. Abudllahi Huerta Jr., MD Hospital Course Neuro/Psych: Schizophrenia NOS History of right infero-orbital rim fracture History of right subdural hematoma Patient is currently not on any medications for pain management CT brain 05/16 reveals no acute intracranial health Seroquel XR (Quetiapine Fumarate) 50 Mg Tab 75 Mg PO HS currently being held Mirtazapine 15 Mg Tab 15 Mg PO HS currently being held Cetirizine (Cetirizine HCl) 10 Mg Tab 10 Mg PO DAILY for rhinitis/rash currently being held Percocet (Oxycodone-Acetaminophen) 5-325 mg Tab 1 Tab PO Q4H PRN home medication for pain currently being held CV: Cardiopulmonary arrest secondary to massive PE Cardiogenic shock with right heart failure History of hypertension Status post CODE BLUE in ED was initially received epinephrine 2 with chest compressions Currently on dopamine drip at 20 mcg/kg per minute Holding home medication lisinopril 5 mill grams daily for hypertension while hypotensive Occasion atorvastatin 10 mg daily for dyslipidemia Resp: Acute respiratory failure secondary to massive PE PRVC ventilation As needed albuterol therapies CT pulmonary mammogram revealed massive bilateral cerebral emboli with engorgement of SVC, brachiocephalic and hepatic vessels indicating right heart strain Received alteplase per protocol in ED GI: NG tube placed to low intermittent wall suction Pantoprazole for GI prophylaxis Docusate sodium/senna for bowel regimen : Masterson catheter was placed for accurate I's and O's in a critically ill patient Endo: Sliding-scale if indicated to maintain euglycemia Check TSH Renal: Creatinine currently within normal limits Monitor urine output Accurate I's and O's Heme: CBC currently within normal limits Currently not on any blood thinners ID: History of recurrent UTI Recently treated with nitrofurantoin UA positive for infection MSK: Status post left percutaneous screw fixation for left valgus femoral neck fracture 04/[address] Santiago Follow up today canceled due to events as above FEN: Replace electrolytes as clinically indicated Access - Left tibial IO peripheral IV. Prophylaxis - GI - pantoprazole - DVT - SCD/heparin per alteplase protocol Time spent was 35 minutes/level II admission Code Status DNR Discussed Condition With Discussed the case with Dr. Dee/ED physician. Notified Celeste Bai at [phone] was with Wilber White/. During this time, we re-affirmed DNR status. Despite vasopressor management, patient did not have a palpable pulse. Time of 1104. Family notified. aNhid Jean MD May 16, 2017 12:24
--- NOTE | 2017-05-16 12:25 | DEATH SUM ---
Pronouncement Date Pronounced : May 16, 2017 Time Of : 1104 Pronouncement Called to pronounce of patient. Identified patient as Magda Bardales with wrist band MR# [id number]. Patient with no cardiac activity in 2 separate leads and no palpable/auscible cardiac activity. Patient with no spontaneous respirations, no corneal reflex or response to painful stimuli. Pupils fixed and dilated. Preliminary Cause of : Cardiac arrest Nahid Jean MD May 16, 2017 12:25
--- NOTE | 2017-05-16 12:47 | EKG ---
Date Performed: 05/16/2017 Time Performed: 10:14:45 PTAGE: 71 years EKG: Probable atrial flutter with rapid response RIGHT BUNDLE BRANCH BLOCK ABNORMAL ECG INTERPRE TATION BASED ON A DEFAULT AGE OF 40 YEARS No significant change from prior electrocardiogram. NO PREVIOUS TRACING DOCTOR: Ladarius Luz Interpretating Date/Time 05/16/2017 12:46:52
--- NOTE | 2017-05-16 12:50 | EKG ---
Date Performed: 05/16/2017 Time Performed: 10:08:17 PTAGE: 71 years EKG: Probable atrial flutter with rapid response RIGHT BUNDLE BRANCH BLOCK SEPTAL MYOCARDIAL INF ARCTION ABNORMAL ECG Compared to prior electrocardiogram, Atrial flutter and right bundle branch bloc k are present. DOCTOR: Ladarius Luz Interpretating Date/Time 05/16/2017 12:48:14
[2017-05-20] MEDS ORDERED: SODIUM BICARBONATE 8.4% INJ 50 MEQ/50 ML SYR IV ONE (10:02)
[2017-05-20] MEDS ORDERED: LIDOCAINE/D5W 2000 MG/500 ML 500 ML IV ONE (10:02)
[2017-05-20] MEDS ORDERED: EPINEPHrine HCL (1:10,000) 1 MG/10 ML SYRINGE IV ONE (10:02)
== END 2017-05-16 16:24 | disposition expired ==
LOC: NEPE 10:01 → NEDA 10:44 → UNDOADMIN 10:44 → UNDODISIN 14:30
DX: J96.00 Acute respiratory failure, unspecified whether with hypoxia or hypercapnia (principal); I26.99 Other pulmonary embolism without acute cor pulmonale; I46.9 Cardiac arrest, cause unspecified; I50.810 Right heart failure, unspecified; R94.31 Abnormal electrocardiogram [ECG] [EKG]; F03.90 Unspecified dementia, unspecified severity, without behavioral disturbance, psychotic disturbance, mood disturbance, and anxiety; I48.91 Unspecified atrial fibrillation; I10 Essential (primary) hypertension; F20.9 Schizophrenia, unspecified; F41.8 Other specified anxiety disorders; E78.00 Pure hypercholesterolemia, unspecified; Z98.890 Other specified postprocedural states; Z86.69 Personal history of other diseases of the nervous system and sense organs
CPT/HCPCS: 51702; 70450; 71275; 92950; 92960; 93005; 96365; 99291; J0171; J2997; J7030; Q9967